=== PATIENT | female | born 1950 | race Two or more races ===

== ENCOUNTER 2020-10-11 08:22 | Outpatient (REF) | payer MEDICARE, BC, SELFPAY ==
[2020-10-11 11:35] LABS: Estimated Average Glucose 137 mg/dL; Hemoglobin A1c % 6.4 %
[2020-10-11 11:55] LABS: Alanine Aminotransferase 24 U/L (0-31); Anion Gap 12 (12-20); Aspartate Amino Transferase 24 U/L (5-31); Blood Urea Nitrogen 14 mg/dL (9-16); Calcium 8.5 mg/dL (8.4-10.2); Carbon Dioxide 29 mmol/L (22-29); Chloride 102 mmol/L (96-108); Cholesterol 133 mg/dL; Estimated Glomerular Filt Rate > 60; Glucose Fasting 147 mg/dL (60-99); HDL Cholesterol 38 mg/dL; LDL Cholesterol Calculated 75 mg/dl; Potassium 4.4 mmol/l (3.3-5.1); Sodium 139 mmol/L (135-145); Triglycerides 102 mg/dL
[2020-10-11 12:16] LABS: Creatinine Urine 114.75 mg/dL; Microalbum/Creatinine Ratio Ur 7.8 ug/mg cr
[2020-10-11 12:18] LABS: Vitamin D 25-OH Total 32.7 ng/mL (>30)
== END 2020-10-11 08:23 | disposition home or self-care (01) ==
LOC: HO.HMGCLDS 08:22
PROVIDERS: PCP Internal Medicine; Visit Provider Internal Medicine
DX: Z78.0 Asymptomatic menopausal state (principal); E11.9 Type 2 diabetes mellitus without complications
CPT/HCPCS: 80048; 80061; 82043; 82306; 83036; 84450; 84460

== ENCOUNTER 2021-03-15 07:54 | Outpatient (REF) | payer MEDICARE, BC, SELFPAY ==
[2021-03-15 11:15] LABS: MANUAL DIFF FLAG NO
[2021-03-15 11:32] LABS: Basophils Percent Auto 0.8 % (0-2); Eosinophils Absolute Auto 0.3 X10*3/uL (0.0-0.4); Eosinophils Percent Auto 6.5 % (0-4); Hematocrit 39.5 % (37-47); Lymphocytes Absolute Auto 1.5 X10*3/uL (1.2-4.9); Lymphocytes Percent Auto 38.4 % (20-40); Mean Corpuscular HGB Conc 32.9 g/dl (31.0-35.0); Mean Corpuscular Hemoglobin 30.4 pg (27.0-33.0); Mean Corpuscular Volume 92.5 fL (80-98); Mean Platelet Volume 10.6 fL (9.4-12.3); Monocytes Absolute Auto 0.4 X10*3/uL (0.1-1.2); Monocytes Percent Auto 10.7 % (2-11); Neutrophils Absolute Auto 1.7 X10*3/uL (2.0-8.3); Neutrophils Percent Auto 43.6 % (45-73); Platelet Count 153 X10*3/uL (160-400); Red Blood Count 4.27 X10*6/uL (4.20-5.50); Red Cell Distribution Width 12.6 % (11.0-16.0); White Blood Count 3.8 X10*3/uL (4.8-10.8)
[2021-03-15 11:54] LABS: Estimated Average Glucose 151 mg/dL; Hemoglobin A1c % 6.9 %
[2021-03-15 12:01] LABS: Creatinine Urine 44.84 mg/dL; Microalbumin Urine < 5.0 mg/L
[2021-03-15 12:06] LABS: Ferritin 95 ng/mL (10-250)
[2021-03-15 12:10] LABS: Alanine Aminotransferase 27 U/L (0-31); Albumin Level 4.2 g/dL (3.5-5.0); Alkaline Phosphatase 69 U/L (39-117); Anion Gap 13 (12-20); Aspartate Amino Transferase 23 U/L (5-31); Bilirubin Total 0.8 mg/dL (0.0-1.0); Blood Urea Nitrogen 15 mg/dL (9-16); Calcium 8.9 mg/dL (8.4-10.2); Carbon Dioxide 27 mmol/L (22-29); Chloride 102 mmol/L (96-108); Cholesterol 154 mg/dL; Estimated Glomerular Filt Rate > 60; Glucose Fasting 151 mg/dL (60-99); HDL Cholesterol 43 mg/dL; Iron 101 mcg/dL (30-160); LDL Cholesterol Calculated 89 mg/dl; Percent Iron Saturation 39 % (15-50); Potassium 4.3 mmol/L (3.3-5.1); Sodium 138 mmol/L (135-145); Total Iron Binding Capacity 260 mcg/dL (228-428); Total Protein 6.9 g/dL (6.5-8.0); Triglycerides 112 mg/dL; Unsaturated Iron Binding 159 ug/dL
== END 2021-03-15 07:55 | disposition home or self-care (01) ==
LOC: HO.HMGCLDS 07:54
PROVIDERS: PCP Internal Medicine; Visit Provider Internal Medicine
DX: E11.9 Type 2 diabetes mellitus without complications (principal); E78.5 Hyperlipidemia, unspecified; I10 Essential (primary) hypertension; K29.70 Gastritis, unspecified, without bleeding; Z86.79 Personal history of other diseases of the circulatory system; Z78.0 Asymptomatic menopausal state
CPT/HCPCS: 36415; 80053; 80061; 82043; 82728; 83036; 83540; 85025

== ENCOUNTER 2021-08-04 08:05 | Outpatient (REF) | payer MEDICARE, BC, SELFPAY ==
--- NOTE | ~2021-08-04 | MM_ITS ---
EXAMINATION: BONE DENSITOMETRY CLINICAL INDICATION: Encounter for other screening for malignant neoplasm. COMPARISON: None (current study represents initial baseline exam). TECHNIQUE: Using a [employer] DXA System (software version: 13.1) manufactured by [employer], dual-energy x-ray absorptiometry was performed of the lumbar spine and left hip. The images are of good technical quality. Summary results are attached. FINDINGS: AP SPINE L1-L4: BMD 1.102 g/cm2, Z-score 0.9, T-score -0.7, normal. LEFT FEMUR, NECK: BMD 0.894 g/cm2, Z-score 0.6, T-score -1.0, normal. LEFT FEMUR, TOTAL: BMD 0.911 g/cm2, Z-score 0.6, T-score -0.8, normal. IDENTIFIED RISK FACTORS: Recurrent falls, height loss, family history (parental hip fracture). Early menopause, secondary osteoporosis, thiazide. HISTORY OF FRACTURE: None listed. MEDICATIONS: Calcium supplements or multivitamin, vitamin D. MM/XR DEXA axial skeleton IMPRESSION: 1. DIAGNOSIS: Normal bone density based on the lowest T-score value of -1.0 in the femoral neck applying World Health Organization criteria. 2. 10-YEAR FRACTURE RISK PREDICTION, FRAX: Major osteoporotic fracture (clinical spine, forearm, hip or shoulder) 7.9%. Hip fracture 1.3%. 3. Treatment Recommendations: NOF guidelines recommend consideration for treatment in postmenopausal women and men age 50 and older presenting with the following: -A hip or vertebral (clinical or morphometric) fracture. -T-score less than or equal to -2.5 at the femoral neck or spine after appropriate evaluation to exclude secondary causes. -Low bone mass at the hip or spine and a 10-year fracture probability by FRAX of greater than or equal to 3% for hip fracture or greater than or equal to 20% for major osteoporotic fracture based on the [place] adapted WHO algorithm. 4. Other Recommendations: All treatment decisions require clinical judgment and consideration of individual patient factors, including patient preferences, comorbidities, previous drug use, risk factors not captured in the FRAX model (e.g. frailty, falls, vitamin D deficiency, increased bone turnover, interval significant decline in bone density) and possible under or overestimation of fracture risk by FRAX. FUTURE SCAN RECOMMENDATION: People with diagnosed cases of osteoporosis or at high risk for fracture should have regular bone mineral density tests. For patients eligible for Medicare, routine testing is allowed once every 2 years. The testing frequency can be increased to one year for patients who have rapidly progressing disease, those who are receiving or discontinuing medical therapy to restore bone mass, or have additional risk factors.
--- NOTE | ~2021-08-04 | MM_ITS ---
EXAMINATION: MM SCREENING DIGITAL BREAST TOMOSYNTHESIS, BILATERAL CLINICAL INFORMATION: Screening. Asymptomatic. Age 70. Prior outside mammography from [place] unavailable. Personal history benign left breast surgery x2 decades ago. Family history breast cancer, 3 aunts. The lifetime risk of breast cancer based on the Tyrer-Cuzick Model is 6%. COMPARISON: None. TECHNIQUE: Digital breast tomosynthesis is performed in both the craniocaudal and mediolateral oblique views along with computer-aided detection (CAD). Synthesized 2D images are generated from the tomosynthesis. FINDINGS: There are scattered areas of fibroglandular density (ACR BI-RADS breast composition Category b). There is no significant mass or architectural abnormality. The axilla and skin contours are unremarkable. There is biopsy clip marker mid lower inner left breast. There are scattered bilateral benign round coarse and some vascular calcifications. Grouped probable benign coarse calcification is present mid upper outer left breast and central left breast. There may be pseudo calcifications from digital processing artifact right breast anterior upper and central inferior. As this exam represents new baseline, patient will be recalled for additional magnification views to fully characterize. MM/MM tomosynthesis screening BI IMPRESSION: 1. Left: Probable benign calcifications mid upper outer and central breast. 3. Right: Probable pseudo calcifications from digital processing artifact on synthesized views anterior upper and central lower. ASSESSMENT: BI-RADS 0: Incomplete - Need Additional Imaging Evaluation RECOMMENDATION: 1. Additional views of the bilateral breasts (bilateral magnification CC and bilateral magnification ML). 2. Radiology department staff will contact the patient for additional imaging. This patient's information was entered into a reminder system with a target due date for their next mammogram.
== END 2021-08-04 08:06 | disposition home or self-care (01) ==
LOC: HO.MAMMO 08:05
PROVIDERS: Visit Provider Internal Medicine
DX: Z13.820 Encounter for screening for osteoporosis (principal); Z78.0 Asymptomatic menopausal state; Z12.31 Encounter for screening mammogram for malignant neoplasm of breast
CPT/HCPCS: 77063; 77067; 77080

== ENCOUNTER 2021-08-17 08:50 | Outpatient (REF) | payer MEDICARE, BC, SELFPAY ==
--- NOTE | ~2021-08-17 | MM_ITS ---
EXAMINATION: MM DIAGNOSTIC DIGITAL MAMMOGRAPHY, BILATERAL CLINICAL INFORMATION: Recall from new baseline screening for bilateral calcifications. COMPARISON: Mammography: 08/04/2021 (new baseline). TECHNIQUE: Digital mammography is performed in the following views: bilateral magnification CC x2; bilateral magnification ML. FINDINGS: There are scattered areas of fibroglandular density (ACR BI-RADS breast composition Category b). Additional magnification views left breast demonstrate 3 similar tight groups of probable benign calcifications outer quadrant and 1 group of calcifications central breast. The groups are similar, each group over 5 in number with variable size of the calcifications. Prior outside exams from [place] are no longer available and chronicity is unknown. Management plan is for short interval follow up left mammography in 6 months to include magnification views. Additional magnification views right demonstrate some scattered benign coarse calcifications. Results are discussed with the patient at time of visit, using an per diem interpreter. MM/MM added views BI IMPRESSION: Left: Probable benign similar appearing tight groups of calcifications outer and central breast. Right: Scattered benign coarse calcifications. ASSESSMENT: BI-RADS 3: Probably Benign RECOMMENDATION: Diagnostic left mammography in 6 months. This patient's information was entered into a reminder system with a target due date for their next mammogram.
== END 2021-08-17 08:51 | disposition home or self-care (01) ==
LOC: HO.MAMMO 08:50
PROVIDERS: PCP Internal Medicine; Visit Provider Internal Medicine
DX: R92.1 Mammographic calcification found on diagnostic imaging of breast (principal)
CPT/HCPCS: 77066

== ENCOUNTER → 2021-08-29 11:54 | Outpatient (BNVA) | payer MEDICARE, BC, SELFPAY | PROVIDERS: PCP Internal Medicine; Referring Provider Internal Medicine; Visit Provider Internal Medicine ==

== ENCOUNTER → 2021-11-02 08:09 | Outpatient (BNVA) | payer MEDICARE, BC, SELFPAY | PROVIDERS: PCP Internal Medicine; Referring Provider Internal Medicine; Visit Provider Internal Medicine | DX: I71.9 Aortic aneurysm of unspecified site, without rupture (principal); Q25.49 Other congenital malformations of aorta; Q27.8 Other specified congenital malformations of peripheral vascular system | CPT/HCPCS: 99212 ==

== ENCOUNTER 2022-03-06 08:24 | Outpatient (REF) | payer MEDICARE, BC, SELFPAY | END 2022-03-06 08:25 | disposition home or self-care (01) | LOC: HO.LAB 08:24 | PROVIDERS: PCP Internal Medicine | DX: N39.0 Urinary tract infection, site not specified (principal); R32 Unspecified urinary incontinence | CPT/HCPCS: 51798; 87086; 99202 ==

== ENCOUNTER 2022-03-13 08:50 | Outpatient (REF) | payer MEDICARE, BC, SELFPAY ==
--- NOTE | ~2022-03-13 | MM_ITS ---
EXAMINATION: MM DIAGNOSTIC DIGITAL BREAST TOMOSYNTHESIS, LEFT CLINICAL INFORMATION: Short interval six-month follow-up probable benign calcifications, several groups left breast. Personal history benign left breast surgery x2 decades ago, [place]. The lifetime risk of breast cancer based on the Tyrer-Cuzick Model is 6%. COMPARISON: Mammography: 08/17/2021, 08/04/2021 (new baseline, BI-RADS 0). TECHNIQUE: Digital breast tomosynthesis is performed in both the craniocaudal and mediolateral oblique views along with computer-aided detection (CAD). Synthesized 2D images are generated from the tomosynthesis. Additional magnification views are obtained in the CC and ML x3 projections. FINDINGS: There are scattered areas of fibroglandular density (ACR BI-RADS breast composition Category b). Parenchymal pattern is similar to prior exams. No developing density or interval mass or architectural abnormality. The axilla and skin contours are unremarkable. The scattered grouped calcifications for follow-up central and upper outer breast are similar to prior diagnostic exam. Again, there is a biopsy clip marker also noted with some adjacent calcifications mid lower inner quadrant. Left breast calcifications will be reassessed again in 6 months at time of annual bilateral mammography. Results are provided to the patient at time of visit by the technologist. MM/MM tomosynthesis diagnostic LT IMPRESSION: No significant changes from prior diagnostic exam. ASSESSMENT: BI-RADS 3: Probably Benign RECOMMENDATION: Diagnostic mammography at time of annual bilateral exam, due in 6 months. This patient's information was entered into a reminder system with a target due date for their next mammogram.
== END 2022-03-13 08:51 | disposition home or self-care (01) ==
LOC: HO.MAMMO 08:50
PROVIDERS: PCP Internal Medicine; Visit Provider Internal Medicine
DX: R92.1 Mammographic calcification found on diagnostic imaging of breast (principal)
CPT/HCPCS: 77061; 77065

== ENCOUNTER 2022-04-10 08:09 | Outpatient (REF) | payer MEDICARE, BC, SELFPAY ==
[2022-04-10 09:04] LABS: Estimated Average Glucose 154 mg/dL
[2022-04-10 09:14] LABS: Anion Gap 10 (12-20); Blood Urea Nitrogen 13 mg/dL (9-16); Calcium 8.9 mg/dL (8.4-10.2); Carbon Dioxide 29 mmol/L (22-29); Chloride 104 mmol/L (96-108); Cholesterol 150 mg/dL; Estimated Glomerular Filt Rate > 60; Glucose Random 183 mg/dL (60-115); HDL Cholesterol 42 mg/dL; LDL Cholesterol Calculated 87 mg/dl; Potassium 4.2 mmol/L (3.3-5.1); Sodium 139 mmol/L (135-145); Triglycerides 106 mg/dL
== END 2022-04-10 08:10 | disposition home or self-care (01) ==
LOC: HO.HMGCLDS 08:09
PROVIDERS: PCP Internal Medicine; Visit Provider Internal Medicine
DX: E11.9 Type 2 diabetes mellitus without complications (principal); E78.5 Hyperlipidemia, unspecified; I10 Essential (primary) hypertension
CPT/HCPCS: 36415; 80048; 80061; 83036

== ENCOUNTER 2022-04-17 07:36 | Outpatient (REF) | payer MEDICARE, BC, SELFPAY ==
--- NOTE | ~2022-04-17 | CT_ITS ---
EXAMINATION: CTA OF THE CHEST WITHOUT AND WITH CONTRAST CLINICAL INFORMATION: Carotid to subclavian bypass COMPARISON: None TECHNIQUE: CT angiography of the chest was performed without and with contrast. 70 mL Omnipaque 350 administered intravenously without complication. 3D POSTPROCESSING: Multiple 3-D angiographic images were processed from the initial data set by the hematology technologist at the modality workstation under concurrent physician supervision. DOSE LOWERING TECHNIQUES: This CT examination was performed using dose optimization techniques as appropriate, variously including the following: - Automated exposure control - Adjustment of mA and/or kV according to patient size (this includes techniques or standardized protocols for targeted exams where dose is matched to indication/reason for exam; i.e. extremities or head) - Use of iterative construction technique DOSE-LENGTH PRODUCT: 112 FINDINGS: CORONARY ARTERIES: Motion artifact obscures the coronary arteries. There is likely mild LAD calcium. ASCENDING AORTA: The ascending aorta measures 3.3 x 3.1 cm. No dissection. AORTIC ARCH: The aortic arch measures 2.7 x 2.7 cm. There is mild atherosclerosis. Two-vessel branch pattern. Great vessels are patent. The innominate artery is widely patent. 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 There is a surgical clip in this location. The right common carotid to subclavian artery bypass graft is patent with mild stenoses at the proximal and distal anastomoses. The distal subclavian and axillary arteries are widely patent. The left common carotid and left subclavian arteries are widely patent. DESCENDING AORTA: Question whether there has been surgical repair of the distal arch and proximal descending aorta with the tube graft. The descending aorta is normal in caliber. INCLUDED UPPER ABDOMINAL AORTA: The upper abdominal aorta is normal in caliber. The included celiac and superior mesenteric artery origins are patent. PULMONARY ARTERIES: No central pulmonary embolism. NONVASCULAR: Arterial phase imaging limits evaluation of nonvascular structures. No mediastinal adenopathy. No pericardial effusion. Small hiatal hernia. The upper abdomen is unremarkable. No suspicious lung nodules. Minor scarring in the left upper lobe and lingula. Degenerative changes in the spine. Surgical changes left chest wall and rib cage. CT/CT angio chest aorta IMPRESSION: The right common carotid to subclavian artery bypass is patent with mild stenoses at the proximal and distal anastomoses.
[2022-04-17] MEDS: iohexoL 350 MG/ML 100 ML INFUS..BTL 70 ML IV (08:56)
== END 2022-04-17 07:37 | disposition home or self-care (01) ==
LOC: HO.CT 07:36
PROVIDERS: PCP Internal Medicine; Visit Provider Internal Medicine
DX: Z98.890 Other specified postprocedural states (principal); Z86.79 Personal history of other diseases of the circulatory system
CPT/HCPCS: 71275; Q9967

== ENCOUNTER → 2022-05-17 13:23 | Outpatient (BNVA) | payer MEDICARE, BC, SELFPAY | PROVIDERS: PCP Internal Medicine; Referring Provider Internal Medicine; Visit Provider Nurse Practitioner Family | DX: R06.02 Shortness of breath (principal); Q25.49 Other congenital malformations of aorta; Q27.8 Other specified congenital malformations of peripheral vascular system; I71.9 Aortic aneurysm of unspecified site, without rupture; I10 Essential (primary) hypertension | CPT/HCPCS: 99212 ==

== ENCOUNTER 2022-06-01 10:00 | Outpatient (RCR) | payer MEDICARE, BC, SELFPAY ==
--- NOTE | 2022-05-03 10:33 | MHC.PT.EP ---
[facility] [place] Office [place] Office [place] Office [address] Chandan Worthy [address] [phone] F: [phone] F: [phone] F: [phone] F: [phone] Physical Therapy Plan of Care Date of Evaluation: Date of Surgery: 08/2021 Diagnosis: unspecified urinary incontinence Assessment: 71 y/o F referred to PT with unspecified urinary incontinence. She reports urinary leakage for >1 year with coughing, sneezing, lifting, activity, and with strong urges. Reports leakage throughout the day with needing to change her pads 3x/day and wears a pamper at night for protection. She reports urinating 10x/day and 5-6x/night. She limits fluid intake to prevent leakage. When she has the urge to urinate, she cannot delay the urge. Of note, she had a hysterectomy in 08/2021 and has had a sacrocolpopexy for POP (rectocele gr 2 and cystocele gr 3). She also has a cardiac hx and HTN. She limits her walking and leaving the house due to JUD/UI. S/s consistent with JUD and Urge incontience as well as poor pressure management. Internal and external pelvic floor exam not done due to time constraints (pt arrived late for evaluation and increased time needed with use of drafter tool design) but she has consented to this exam next visit. She demonstrates trendelenburg with gait and poor breathing mechanics. At this time, recommend PT 1x/week for 12 weeks (will go to every other week around 5 weeks) to address impairments, implement HEP, and optimize functional mobility. Will modify goals and treatment plan following pelvic floor assessment next visit. Frequency and Duration: The patient will be seen 1x/week for 12 weeks Short Term Goals: 6 week 1. Pt to be able to correctly activate her PFM to allow improved support to bowel and bladder. 2. Pt to be able to demonstrate diaphragmatic breathing to improve pressure exchange and intra abdominal load management. 3. Pt to complete a voiding log in order to accurately assess her bladder habits 4. Pt to be educated on behavior training to help decrease urge incontinence. Half-Way Goals: 12 weeks 1. Pt to be able to show improved PFM contraction during functional movements such as a bridge or squat to help prevent or limit POP. 2. Pt to reduce # of episodes of JUD during the day by 50% to help improve quality of life and reduce pad usage. 3. Pt to be independent with her final HEP for PFM in order to help maintain gains made in therapy. Treatment Plan: Modalities to reduce pain, spasms and effusion. Manual therapy to restore motion and function. Therapeutic exercise to improve strength and flexibility. Neuromuscular re-education for posture and balance. Therapeutic activities to return to functional activities of daily living. Electronically signed by: Please sign and return to therapist. Thank you for your referral.
--- NOTE | 2022-08-02 13:47 | MHC.PT.DC ---
[facility] [place] Office [place] Office [place] Office [address] Chandan Worthy [address] [phone] F: [phone] F: [phone] F: [phone] F: [phone] Physical Therapy Discharge Report Diagnosis: unspecified urinary incontinence Date of Surgery: 08/2021 Date of Evaluation: 05/03/22 Date of Discharge: 08/02/22 Treatments to Date: 4 Cancellations to Date: 0 No Shows to Date: 0 Discharge Status: Improved Function Independent with HEP Discharge Summary: Pt did not f/u with further visits and is therefore d/c. Pt was I with HEP with focus on motor control of pelvic stability, strength of PF as well as managing breath. Also pt was given significant education today re constipation management, toileting mechanics, urge deferment and practicing delaying voiding when it has been < 2 hours between voids. Continue to progress hip strength, breathing with transitional movement, teaching knack. Electronically signed by: Felisha Peres PT Please sign and return to therapist. Thank you for your referral.
== END 2022-08-02 13:47 | disposition home or self-care (01) ==
LOC: HO.PT 10:00
PROVIDERS: PCP Internal Medicine
DX: R32 Unspecified urinary incontinence (principal)
CPT/HCPCS: 97112; 97140; 97162

== ENCOUNTER → 2022-06-05 13:02 | Outpatient (BNVA) | payer MEDICARE, BC, SELFPAY | PROVIDERS: PCP Internal Medicine | DX: N32.81 Overactive bladder (principal) | CPT/HCPCS: Q3014 ==

== ENCOUNTER → 2023-01-10 08:50 | Outpatient (REF) | payer MEDICARE, BC, SELFPAY ==
--- NOTE | 2023-01-10 08:53 | CA_ITS ---
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 The visually estimated ejection fraction is between 65-70%. - There is moderate septal asymmetric hypertrophy. - No obvious valvular pathology seen on this study. Findings Left Ventricle Normal left ventricular cavity size. There is mildly increased left ventricular wall thickness. The left ventricular systolic function is normal. The visually estimated ejection fraction is between 65-70%. There is no evidence of regional wall motion abnormalities. Diastolic function is normal for age. E/E prime ratio is <8, consistent with normal filling pressures. There is moderate septal asymmetric hypertrophy. Right Ventricle Normal right ventricular cavity size and systolic function. Atria Both atria are normal in size. Aortic Valve There is a normal trileaflet aortic valve. There is mild calcification of the aortic valve. There is no aortic valve stenosis. There is no aortic valve regurgitation. Mitral Valve The mitral valve appears normal. There is no mitral valve regurgitation. There is no mitral valve stenosis. Pulmonic Valve The pulmonic valve is likely normal. There is trace pulmonic valve regurgitation. Tricuspid Valve There is no tricuspid valve regurgitation. Tricuspid regurgitation envelope is inadequate for calculation of right ventricular systolic pressure. Great Vessels The asc aorta and aortic arch are normal in size. Venous The inferior vena cava is normal in size and collapses greater than 50% with inspiration. Pericardium/Pleural There is no evidence of pericardial effusion. Prior Study Comparison No prior study available for comparison. Recommendations, Care & Conclusions No obvious valvular pathology seen on this study. Measurements 2D Linear Measurements IVSd: 1.59 0.6-0.9/0.6-1.0 cm LVIDd: 3.91 3.9-5.3/4.2-5.9 cm LVIDd Index: 2.29 2.4-3.2/2.2-3.1 cm/m2 LVIDs: 2.63 2.0-3.6 cm LVPWd: 1.12 0.7-1.1 cm LA Diam: 2.90 2.7-3.8/3.0-4.0 cm LAIDs Index: 1.70 1.5-2.3 cm/m2 LV Mass: 239.55 67-162/88-224 g LV Mass Index: 140.09 43-95/49-115 g/m2 LVOT Diam: 2.10 3.0+(-)1.3 cm 2D Systolic Function EF 4C: 60.60 >55% Mitral Valve MV Pk E: 0.46 MV PK A: 0.66 MV Decel Time: 268.00 E/A: 0.70 E'Lateral: 6.20 E'Medial: 4.35 E/E' Med: 10.60 E/E' Lat: 7.50 PHT: 79.00 MVA PHT: 2.78 Decel Nye: 1.72 Aortic Valve AoV Pk Alex: 1.12 AoV Mn Alex: 0.83 AoV VTI: 0.26 AoV Pk Grad: 5.00 Aov Mn Grad: 3.00 JM Cont.VTI: 2.97 LVOT LVOT Pk Alex: 0.92 LVOT Mn Alex: 0.67 LVOT VTI: 0.23 LVOT Pk Grad: 3.00 LVOT Mn Grad: 2.00 LVOT Diam: 2.10 LVOT Area: 3.46 Diastolic Function MV Pk E: 0.46 MV Pk A: 0.66 E/A: 0.70 E'Medial: 4.35 E/E' Med: 10.60 E' Laterial: 6.20 E/E' Lat: 7.50 Right Ventricle TAPSE (mm): 17.50 TVS' Alex: 9.03 Tricuspid Valve RA Press: 3.00 Great Vessels Aorta Sinus of Valsalva: 3.16 2.0-3.5 cm Ao Asc: 3.40 2.1-3.4 cm Ao Arch: 3.10 Updated in Other Vendor System with Status of Final Hernan Chaudhari MD electronically signed on 01/10/2023 12:14:02 PM with status of Final
== END ==
LOC: HO.CARD 08:50
PROVIDERS: PCP Internal Medicine; Visit Provider Nurse Practitioner Family
DX: I71.9 Aortic aneurysm of unspecified site, without rupture (principal); Q27.8 Other specified congenital malformations of peripheral vascular system; R06.02 Shortness of breath; I10 Essential (primary) hypertension
CPT/HCPCS: 93306

== ENCOUNTER 2023-01-10 12:38 | Outpatient (REF) | payer MEDICARE, BC, SELFPAY ==
--- NOTE | ~2023-01-10 | MM_ITS ---
EXAMINATION: MM DIAGNOSTIC DIGITAL BREAST TOMOSYNTHESIS, BILATERAL CLINICAL INFORMATION: Six-month follow-up left breast calcifications. Yearly screening right breast study. COMPARISON: Mammography: 03/13/2022 and studies dating back to 08/04/2021. TECHNIQUE: Digital breast tomosynthesis is performed in both the craniocaudal and mediolateral oblique views along with computer-aided detection (CAD). Synthesized 2D images are generated from the tomosynthesis. Left breast spot magnification views in craniocaudal and 90 degree mediolateral views performed. FINDINGS: There are scattered areas of fibroglandular density (ACR BI-RADS breast composition Category b). Right breast has a stable parenchymal pattern without new abnormal dominant mass or suspicious grouping of microcalcifications. The 2 groupings of calcifications about the upper outer aspect of the left breast are stable. No abnormal dominant mass identified. One-year follow-up study is suggested with spot magnification views of the left breast. Results are provided to the patient at time of visit by the technologist. MM/MM tomosynthesis diagnostic BI IMPRESSION: There are no significant changes from prior study. ASSESSMENT: BI-RADS 3: Probably Benign RECOMMENDATION: Diagnostic mammography at time of next annual exam, due in 12 months. This patient's information was entered into a reminder system with a target due date for their next mammogram.
== END 2023-01-10 12:39 | disposition home or self-care (01) ==
LOC: HO.MAMMO 12:38
PROVIDERS: Visit Provider Internal Medicine
DX: R92.1 Mammographic calcification found on diagnostic imaging of breast (principal)
CPT/HCPCS: 77062; 77066

== ENCOUNTER 2023-01-19 08:15 | Outpatient (REF) | payer MEDICARE, BC, SELFPAY ==
[2023-01-19 08:31] LABS: MANUAL DIFF FLAG NO
[2023-01-19 09:08] LABS: Basophils Percent Auto 0.8 % (0-2); Eosinophils Absolute Auto 0.3 X10*3/uL (0.0-0.4); Eosinophils Percent Auto 6.3 % (0-4); Hematocrit 40.3 % (37.0-47.0); Hemoglobin 13.7 g/dl (12.0-16.0); Imm Gran Abs Auto 0.01 X10*3/uL (0.00-0.03); Imm Gran Pct Auto 0.3 % (0.0-0.4); Lymphocytes Absolute Auto 1.6 X10*3/uL (1.2-4.9); Lymphocytes Percent Auto 39.3 % (20-40); Mean Corpuscular Hemoglobin 30.9 pg (27.0-33.0); Mean Corpuscular Volume 90.8 fL (80.0-98.0); Mean Platelet Volume 9.9 fL (9.4-12.3); Monocytes Absolute Auto 0.4 X10*3/uL (0.1-1.2); Monocytes Percent Auto 8.8 % (2-11); Neutrophils Absolute Auto 1.8 x10*3/uL (2.0-8.3); Neutrophils Percent Auto 44.5 % (45-73); Platelet Count 167 X10*3/uL (160-400); Red Blood Count 4.44 X10*6/uL (4.20-5.50); Red Cell Distribution Width 12.6 % (11.0-16.0)
[2023-01-19 09:48] LABS: Alanine Aminotransferase 32 U/L (0-31); Anion Gap 14 (12-20); Aspartate Amino Transferase 23 U/L (5-31); Blood Urea Nitrogen 13 mg/dL (9-16); Calcium 9.1 mg/dL (8.4-10.2); Carbon Dioxide 27 mmol/L (22-29); Chloride 105 mmol/L (96-108); Cholesterol 168 mg/dL; Estimated Glomerular Filt Rate > 60; Glucose Fasting 168 mg/dL (60-99); HDL Cholesterol 47 mg/dL; LDL Cholesterol Calculated 100 mg/dl; Potassium 4.7 mmol/L (3.3-5.1); Sodium 141 mmol/L (135-145); Triglycerides 108 mg/dL
[2023-01-19 10:03] LABS: Vitamin D 25-OH Total 37.7 ng/mL (>30)
== END 2023-01-19 08:16 | disposition home or self-care (01) ==
LOC: HO.LAB 08:15
PROVIDERS: PCP Internal Medicine; Visit Provider Internal Medicine
DX: E78.5 Hyperlipidemia, unspecified (principal); I10 Essential (primary) hypertension; K29.70 Gastritis, unspecified, without bleeding; Z78.0 Asymptomatic menopausal state
CPT/HCPCS: 36415; 80048; 80061; 82306; 84450; 84460; 85025

== ENCOUNTER 2023-02-16 12:04 | Outpatient (REF) | payer MEDICARE, BC, SELFPAY ==
[2023-02-16 14:00] LABS: Estimated Average Glucose 143 mg/dL; Hemoglobin A1c % 6.6 %
[2023-02-16 17:17] LABS: Microalbumin Urine < 5.0 mg/L
== END 2023-02-16 12:05 | disposition home or self-care (01) ==
LOC: HO.HMGCLDS 12:04
PROVIDERS: PCP Internal Medicine; Visit Provider Internal Medicine
DX: E11.9 Type 2 diabetes mellitus without complications (principal)
CPT/HCPCS: 36415; 82043; 83036

== ENCOUNTER → 2023-02-27 12:42 | Outpatient (BNVA) | payer MEDICARE, BC, SELFPAY | PROVIDERS: PCP Internal Medicine; Referring Provider Internal Medicine; Visit Provider Internal Medicine | DX: I71.9 Aortic aneurysm of unspecified site, without rupture (principal); I10 Essential (primary) hypertension; E78.5 Hyperlipidemia, unspecified; Q25.49 Other congenital malformations of aorta; Q27.8 Other specified congenital malformations of peripheral vascular system; Z79.899 Other long term (current) drug therapy | CPT/HCPCS: 93005; 99212 ==

== ENCOUNTER 2023-03-13 15:31 | Outpatient (REF) | payer MEDICARE, BC, SELFPAY ==
--- NOTE | ~2023-03-13 | XR_ITS ---
EXAMINATION: XR LUMBOSACRAL SPINE CLINICAL INFORMATION: Low back pain. Fall. COMPARISON: None available. TECHNIQUE: Three views of the lumbosacral spine. FINDINGS: Bone alignment is normal. No fracture or dislocation. Normal disc spaces. Lower lumbar spine facet arthritis. XR/XR lumbar spine 2-3V IMPRESSION: Lower lumbar spine facet arthritis.
== END 2023-03-13 15:32 | disposition home or self-care (01) ==
LOC: HO.HMGCX 15:31
PROVIDERS: PCP Internal Medicine; Visit Provider Internal Medicine
DX: M54.50 Low back pain, unspecified (principal)
CPT/HCPCS: 72100

== ENCOUNTER → 2023-04-12 09:11 | Outpatient (BNVA) | payer MEDICARE, BC, SELFPAY | PROVIDERS: PCP Internal Medicine; Visit Provider Surgery Vascular Surgery | DX: I70.0 Atherosclerosis of aorta (principal); Q27.8 Other specified congenital malformations of peripheral vascular system | CPT/HCPCS: 99202 ==

== ENCOUNTER 2023-05-08 08:29 | Outpatient (REF) | payer MEDICARE, BC, SELFPAY ==
[2023-05-08 10:28] LABS: Blood Urea Nitrogen 12 mg/dL (9-16); Estimated Glomerular Filt Rate > 60
== END 2023-05-08 08:30 | disposition home or self-care (01) ==
LOC: HO.LAB 08:29
PROVIDERS: PCP Internal Medicine; Visit Provider Surgery Vascular Surgery
DX: I70.0 Atherosclerosis of aorta (principal)
CPT/HCPCS: 36415; 82565; 84520

== ENCOUNTER 2023-05-10 12:46 | Outpatient (REF) | payer MEDICARE, BC, SELFPAY ==
--- NOTE | ~2023-05-10 | CT_ITS ---
EXAMINATION: CT ANGIOGRAM CHEST CLINICAL INFORMATION: Atherosclerosis of aorta. Additional Notes/Special Instructions: Eval thoracic stent graft. COMPARISON: CT angiogram chest 04/17/2022. TECHNIQUE: Multiple axial images were obtained through the chest after the administration of 70 mL of Omnipaque 350 intravenous contrast. Extensive vascular post-processing including two-dimensional and three-dimensional reformatted images were created and reviewed on an independent workstation. This CT examination was performed using dose optimization techniques as appropriate, variously including the following: *Automated exposure control *Adjustment of mA and/or kV according to patient size (this includes techniques or standardized protocols for targeted exams where dose is matched to indication/reason for exam; i.e. extremities or head) *Use of iterative reconstruction technique DLP: 497 mGy-cm FINDINGS: VASCULAR FINDINGS: The thoracic aorta demonstrates mild calcific atherosclerotic change without aneurysm. There is a 2-vessel branching pattern of the aortic arch with a common trunk involving the brachiocephalic and left carotid. The proximal origins of the great vessels are patent. The right subclavian artery is occluded at its origin and the majority of the vessel is not seen. There is a right carotid to distal subclavian bypass graft present which is patent. There are some minimal areas of stenosis at the origin of the graft as well as the distal anastomosis, unchanged from prior and not felt to be hemodynamically significant. There appears to be an open surgical tube graft repair of the distal thoracic aortic arch beginning immediately after the origin of the left subclavian extending to the proximal descending thoracic aorta (see dela cruz image). This is widely patent. The distal descending thoracic aorta appears unremarkable. The small visualized portion of the abdominal aorta appears unremarkable aside from mild atherosclerotic change. The origins of the celiac and SMA are patent. There is very early filling of the right-sided axillary and subclavian veins. Does this patient have a right arm AV fistula or graft? This was not seen at the time of the prior study. NONVASCULAR FINDINGS: Lungs: Scattered areas of atelectasis are present. No suspicious lung masses are seen. Mediastinum: Heart size is normal. There is a 5 mm nodule in the left lobe of the thyroid. No mediastinal or hilar abnormality seen. No significant coronary calcification. Pleura: There is no pleural effusion. No pleural mass or thickening. Axilla: No lymphadenopathy. Upper Abdomen: Unremarkable. Osseous Structures: Unremarkable. CT/CT angio chest aorta IMPRESSION: 1. A right carotid to distal subclavian bypass graft is patent. There are some mild stenoses at the origin and distal anastomosis, unchanged from prior, not felt to be hemodynamically significant. 2. There appears to be an open surgical tube graft repair of the distal thoracic arch beginning immediately after the origin of the left subclavian extending to the proximal descending thoracic aorta. This is widely patent. 3. Incidental note made of early filling of the right axillary and subclavian veins. This was not seen at the time of the prior study, possibly indicative of AV shunting from a dialysis fistula. Please correlate clinically. 4. Other incidental findings as described above. Fleischner guidelines were followed.
--- NOTE | ~2023-05-10 | CT_ITS ---
EXAMINATION: CT ANGIOGRAM NECK CLINICAL INFORMATION: Atherosclerotic disease. Carotid subclavian bypass. COMPARISON: CTA chest from 05/10/2023. TECHNIQUE: Initial noncontrast water quality control engineer imaging of the neck was performed. Test bolus sequences followed by intravenous administration 70 mL of Omnipaque 350 (total utilized for CTA neck and chest). Helical imaging was performed in the axial plane from the aortic arch to the skull base. The data was processed at the mineral technologist's workstation for generation of MIP sequences. Angled MIPs and volume rendered reformatted images were also generated at an offline 3D workstation. Stenoses are assessed in accordance with NASCET criteria unless otherwise indicated. This CT examination was performed using dose optimization techniques as appropriate, variously including the following: *Automated exposure control. *Adjustment of mA and/or kV according to patient size (this includes techniques or standardized protocols for targeted exams where dose is matched to indication/reason for exam; i.e. extremities or head). *Use of iterative reconstruction technique. DLP: 497 mGy-cm (total for CTA neck and chest) FINDINGS: CT Neck: There is a 0.6 cm hypoattenuating nodule in the left thyroid lobe (no follow-up imaging recommended based on current guidelines at the time of examination). The remaining cervical soft tissues are within normal limits. Advanced degenerative disc disease at C4-C5 and C5-C6. Mild degenerative disc disease at all additional cervical levels. Facet and uncovertebral joint arthropathy leads to osseous encroachment on the neural foramina from C3-C6. Congenital nonunion of the posterior arch of C1. CT Upper Chest: The visualized lung apices and upper mediastinum are within normal limits. Neck CTA: Aortic Arch: Normal caliber with mild calcific atherosclerotic disease. Two vessel branching pattern of the arch with left common carotid artery arising from the brachiocephalic trunk. Great Vessel Origins: There is occlusion of the [place] origin of the right subclavian artery. Patent vascular graft between the proximal right common carotid artery and the right subclavian artery. A fibrous shelf narrows the proximal graft approximately 50%. No additional significant stenosis of the branch origins. Right Common Carotid Artery: Normal opacification without focal stenosis or occlusion. Cervical Right Internal Carotid Artery: Moderate mixed fibrofatty and calcific atherosclerotic disease of the carotid bulb and proximal internal carotid artery causes 50% stenosis of the origin of the right ICA. Left Common Carotid Artery: Normal opacification without focal stenosis or occlusion. Cervical Left Internal Carotid Artery: Minimal atherosclerotic disease of the carotid bulb and proximal internal carotid artery. Cervical Right Vertebral Artery: Threadlike, diminished opacification of a hypoplastic right vertebral artery with concomitant decrease in caliber of the foramina transversarium. Cervical Left Vertebral Artery: Dominant. Normal opacification without focal stenosis or occlusion. CT/CT angio neck IMPRESSION: 1. Patent vascular graft between the proximal right common carotid artery and the right subclavian artery. A fibrous shelf narrows the proximal graft approximately 50%. 2. Atherosclerotic disease causes 50% stenosis of the origin of the right ICA. 3. Hypoplastic, opacification of a hypoplastic right vertebral artery.
[2023-05-10] MEDS: iohexoL 350 MG/ML 100 ML INFUS..BTL IV (15:06)
== END 2023-05-10 12:47 | disposition home or self-care (01) ==
LOC: HO.CT 12:46
PROVIDERS: PCP Internal Medicine; Visit Provider Surgery Vascular Surgery
DX: I70.0 Atherosclerosis of aorta (principal)
CPT/HCPCS: 70498; 71275; Q9967

== ENCOUNTER 2023-05-22 09:16 | Outpatient (AMB) | payer MEDICARE, BC, SELFPAY ==
--- NOTE | 2023-05-22 09:19 | A.OFFVIS_ITS ---
Intake Vital Signs 05/22/23 09:20 Height 5 ft 4 in Weight 139 lb BMI 23.9 Intake Visit Reasons: follow up s/p CTA neck 05/10/23 Intake Note: Patient is here for a follow up s/p CTA neck 05/10/23. Surgical Scrub Technologist Required: Yes Surgical Scrub Technologist Name: Ani Luis Miguel CLM Allergies amlodipine Allergy (Unknown, Verified 05/22/23 09:21) unk chlorpromazine [From Thorazine] Allergy (Unknown, Verified 05/22/23 09:21) Unknown doxepin Allergy (Unknown, Verified 05/22/23 09:21) unk haloperidol [Haldol] Allergy (Unknown, Verified 05/22/23 09:21) unk prochlorperazine [From Compazine] Allergy (Unknown, Verified 05/22/23 09:21) Unknown simvastatin Allergy (Unknown, Verified 05/22/23 09:21) unk thioridazine Allergy (Unknown, Verified 05/22/23 09:21) unk trifluoperazine Allergy (Unknown, Verified 05/22/23 09:21) Unknown valsartan Allergy (Unknown, Verified 05/22/23 09:21) Unknown HPI follow up s/p CTA neck 05/10/23 HPI Details Very pleasant 72-year-old female presents for follow-up regarding CT angiogram of the neck and chest. This was all originally done for dysphagia lusoria. Subsequently underwent treatment of Meckel's diverticulum, intramural hematoma, penetrating ulcer and pseudoaneurysm with open stent graft repair of the descending thoracic aorta in 2017. In addition she had a carotid subclavian bypass. This was all done at [facility]. She now presents for follow-up. She has been having no significant interval issues. She does have to follow strict dietary protocol of small frequent meals. She now presents for routine follow-up with CT angiogram. [facility] Medical History Aberrant right subclavian artery Achalasia Carpal tunnel syndrome Cystocele and rectocele with incomplete uterovaginal prolapse Dyslipidemia Erythema intertrigo Essential hypertension Gastritis Hx of aortic aneurysm HX: benign breast biopsy Kommerell's diverticulum Overactive bladder Pelvic organ prolapse quantification stage 2 rectocele Pelvic organ prolapse quantification stage 3 cystocele Penetrating atherosclerotic ulcer of aorta Skin tags, multiple acquired Type 2 diabetes mellitus without complication, without long-term current use of insulin Urinary incontinence Surgical History H/O aortic aneurysm repair History of right salpingo-oophorectomy History of sacrocolpopexy History of vaginal hysterectomy Hx of colonoscopy Status post left breast lumpectomy Family History Father No problems noted. Mother No problems noted. Brother No problems noted. Social History Housing: House Alcohol intake: never Patient Tobacco Use Status: Never used Tobacco e-Cigarette/Vaping Use: Never Used Current occupational status: retired Cognitive needs: No Hearing needs: No Vision needs: No Review of Systems Const All systems reviewed & are unremarkable except as noted in HPI and below Reports no additional complaints ENT Reports Normal hearing present Card Denies chest pain, Denies chest pain at rest, Denies chest pain with activity and Denies pedal edema Resp Denies cough GI Denies abdominal pain Musc Denies abnormal gait, Denies muscle cramps and Denies radiating pain into limb Skin/Breast Denies skin ulcer and Denies wounds Neuro Reports Normal hearing present and Denies abnormal gait Psych Reports no additional complaints Physical Exam Vital Signs: BMI result Body Mass Index 23.9 Const General: cooperative, healthy appearing and comfortable Orientation/consciousness: oriented to person, oriented to place and oriented to time HEENT Head: Yes normal to inspection Neck Neck: Yes normal visual inspection Carotids: no bruits Chest Chest palpation & inspection: normal inspection of the chest Resp Effort & Inspection: normal respiratory effort and able to speak in complete sentences Auscultation: clear to auscultation bilaterally, no crackles, no rales, no rhonchi and no wheezes Cardio Rate: regular rate Rhythm: regular rhythm Heart sounds: S1 normal heart sound present and S2 normal heart sound present Bruits: no carotid bruits Peripheral pulses: Peripheral pulses 2+ throughout GI Inspection: Yes normal to inspection Skin Wounds: no wounds Hair: normal Neuro General: oriented to person, oriented to place and oriented to time Cranial nerves: Yes CN's II-XII intact bilaterally and Yes Normal hearing present Cognition (Neuro): normal cognition Motor exam (neuro): 5/5 motor strength present throughout Extrem Other: venous exam: No significant superficial varicosities or spider telangiectasias, minimal edema General: No clubbing, No cyanosis and No edema Psych Appearance: grossly normal Mental Status: mental status grossly normal Speech and movement: Normal speech and movement present Results Reviewed Results Reviewed: 05/10/2023-CT angiogram of neck and chest reviewed. No significant interval changes. Carotid subclavian bypass patent. Written report and images were reviewed. Assessment & Plan Assessment & Plan (1) Thoracic aortic atherosclerosis: Code(s): I70.0 - Atherosclerosis of aorta Plan: In short patient originally had aberrant subclavian artery. This appears to be of treated appropriately in doing well. In addition she is being followed for thoracic stent graft. Imaging appears to be within normal limits. We discussed routine risk factor modification. The patient will follow up with us in approximately [address] year's time with repeat CT angiogram. Thank you for allowing us to assist in her care. If there are any questions or concerns please do not hesitate to contact us. Orders: Orders Blood Urea Nitrogen 364 Days I70.0 - Atherosclerosis of aorta Creatinine 364 Days I70.0 - Atherosclerosis of aorta CT angio chest aorta 364 Days I70.0 - Atherosclerosis of aorta CT angio neck 364 Days I70.0 - Atherosclerosis of aorta Coding Level of Care Code Est Pt Level 4 (11375) Diagnoses Thoracic aortic atherosclerosis I70.0
[2023-05-22 09:20] VITALS: BMI 23.9
== END 2023-05-22 09:44 | disposition home or self-care (01) ==
PROVIDERS: PCP Internal Medicine; Visit Provider Surgery Vascular Surgery
DX: I70.0 Atherosclerosis of aorta (principal); Z95.828 Presence of other vascular implants and grafts
CPT/HCPCS: 99213

== ENCOUNTER → 2023-05-22 09:16 | Outpatient (BNVA) | payer MEDICARE, BC, SELFPAY | PROVIDERS: PCP Internal Medicine; Visit Provider Surgery Vascular Surgery ==

== ENCOUNTER 2023-06-05 11:34 | Outpatient (AMB) | payer MEDICARE, BC, SELFPAY ==
--- NOTE | 2023-06-05 11:35 | A.OFFVIS_ITS ---
Intake Intake Visit Reasons: 1 year follow up [facility] Intake Note: Patient presents for tele visit follow up [facility] Medications: none Blood Thinner: aspirin Value Analyst Required: Yes Value Analyst Language: Motorcycle Maker Name: Mana Information Interpreted: non-clinical & clinical Accompanied by: Self / Same As Patient Allergies amlodipine Allergy (Unknown, Verified 06/05/23 13:41) unk chlorpromazine [From Thorazine] Allergy (Unknown, Verified 06/05/23 13:41) Unknown doxepin Allergy (Unknown, Verified 06/05/23 13:41) unk haloperidol [Haldol] Allergy (Unknown, Verified 06/05/23 13:41) unk prochlorperazine [From Compazine] Allergy (Unknown, Verified 06/05/23 13:41) Unknown simvastatin Allergy (Unknown, Verified 06/05/23 13:41) unk thioridazine Allergy (Unknown, Verified 06/05/23 13:41) unk trifluoperazine Allergy (Unknown, Verified 06/05/23 13:41) Unknown valsartan Allergy (Unknown, Verified 06/05/23 13:41) Unknown Medication List - Last Reconciled 06/05/23 by KATT Simmons ascorbic acid (vitamin C) mg PO aspirin (Adult Aspirin Regimen) 81 mg PO DAILY biotin 800 mcg PO DAILY calcium mg PO [id number] mg tabs PO cane As directed cholecalciferol (vitamin D3) 50 mcg PO DAILY hydrochlorothiazide 12.5 mg PO QAM magnesium oxide 250 mg PO DAILY metoprolol succinate ER 100 mg PO DAILY pravastatin 40 mg PO BEDTIME Shower Chair As directed HPI HPI Comments History of Present Illness Details Maggy is a very pleasant 72-year-old Chadian-speaking female patient of Dr. Arreguin. She has a past medical history of achalasia, carpal tunnel syndrome, cystocele and rectocele with incomplete ureteral vaginal prolapse, dys lipidemia, hypertension, gastritis, overactive bladder, and type 2 diabetes. She is being follow-up on today via telehealth for her overactive bladder. In discussion with the patient today she reports to be doing and feeling well. She reports she continues to perform pelvic floor exercises at home as instructed through her previous therapist when attending pelvic floor therapy at [facility]. She denies any bothersome urinary symptoms at this time. She reports to be happy with her current voiding parameters. When asked she reports to be drinking plenty of water daily. She denies urinary urgency, urinary frequency, incontinence, nocturia, hematuria, dysuria, foul smelling urine, changes to urinary stream, flank pain, fever, and or chills. [facility] Medical History (Reviewed 06/05/23 @ 23:36 by MARYSE SimmonsEN[facility] Aberrant right subclavian artery Achalasia Carpal tunnel syndrome Cystocele and rectocele with incomplete uterovaginal prolapse Dyslipidemia Erythema intertrigo Essential hypertension Gastritis Hx of aortic aneurysm HX: benign breast biopsy Kommerell's diverticulum Overactive bladder Pelvic organ prolapse quantification stage 2 rectocele Pelvic organ prolapse quantification stage 3 cystocele Penetrating atherosclerotic ulcer of aorta Skin tags, multiple acquired Type 2 diabetes mellitus without complication, without long-term current use of insulin Urinary incontinence Surgical History H/O aortic aneurysm repair History of right salpingo-oophorectomy History of sacrocolpopexy History of vaginal hysterectomy Hx of colonoscopy Hx of total hysterectomy Status post left breast lumpectomy Family History Father No problems noted. Mother No problems noted. Brother No problems noted. Social History Housing: House Alcohol intake: never Patient Tobacco Use Status: Never used Tobacco e-Cigarette/Vaping Use: Never Used Current occupational status: retired Cognitive needs: No Hearing needs: No Vision needs: No Review of Systems Const Reports as per HPI Eyes Reports no additional complaints ENT Reports no additional complaints Card Reports as per HPI Resp Reports no additional complaints GI Reports as per HPI Reports as per HPI Musc Reports no additional complaints Neuro Reports no additional complaints Endo Reports as per HPI Physical Exam Const Orientation/consciousness: patient oriented x3 Resp Effort & Inspection: able to speak in complete sentences Neuro General: patient oriented x3 Psych Speech and movement: Clear speech present Attitude: cooperative Thought process: Normal thought process present Thought content: Normal thought content present Insight: Good insight present (Psych) Judgement: Good judgement present (Psych) Assessment & Plan Assessment & Plan (1) Overactive bladder: Code(s): N32.81 - Overactive bladder Plan Continue with pelvic floor exercises at home as discussed Patient denies any bothersome urinary symptoms at this time. Continue drinking plenty of water daily. Patient is happy with current voiding parameters. Follow-up in 1 year with [facility]; if not sooner with any issues, concerns, and or questions. Patient Instructions: The patient had an opportunity to ask questions regarding the treatment plan. All questions were answered. Physical exam, labs, and imaging were discussed and reviewed in detail. As well as risks, benefits, and discussion of treatment choices. No major barriers to understanding were identified. The patient expressed understanding and agreement with the above treatment plan. The patient was made aware they should contact our office by phone for worsening of their current condition, the appearance of new symptoms, or with any questions or concerns. Compliance is encouraged with any medications and follow up testing that is ordered. It is a privilege to be allowed the opportunity to participate in? your urological care.? Again, if you have any questions or concerns If you have any questions or concerns please do not hesitate to contact me. The office is [phone]. This note is constructed using voice recognition software. While every effort has been made to ensure accuracy reshipping clerk errors may have been included. Yours sincerely, ALFR[facility]O SimmonsCON[facility] Telehealth Telehealth Location of provider rendering services: practice address Location of patient: address on file Patient Identification confirmed using: Name, : Yes Telehealth method: voice only Patient verbally consented to treatment: Yes Patient verbally consented to billing insurance company: Yes Patient informed of any privacy concerns related to visit: Yes Minutes spent on Phone/Video with Pt.: 15 Coding Level of Care Code Tele Est Pt Level 2 (08842) Diagnoses Overactive bladder N32.81
== END 2023-06-05 13:41 | disposition home or self-care (01) ==
LOC: HO.HUSH 11:34
PROVIDERS: PCP Internal Medicine; Visit Provider Nurse Practitioner Family
DX: N32.81 Overactive bladder (principal)
CPT/HCPCS: 99442

== ENCOUNTER → 2023-06-05 11:34 | Outpatient (BNVA) | payer MEDICARE, BC, SELFPAY | PROVIDERS: PCP Internal Medicine; Visit Provider Nurse Practitioner Family ==

== ENCOUNTER 2023-06-13 08:04 | Outpatient (REF) | payer MEDICARE, BC, SELFPAY ==
[2023-06-13 09:01] LABS: Estimated Average Glucose 146 mg/dL; Hemoglobin A1c % 6.7 %
[2023-06-13 09:45] LABS: Alanine Aminotransferase 27 U/L (0-31); Anion Gap 13 (12-20); Aspartate Amino Transferase 25 U/L (5-31); Blood Urea Nitrogen 16 mg/dL (9-16); Calcium 9.4 mg/dL (8.4-10.2); Carbon Dioxide 28 mmol/L (22-29); Chloride 106 mmol/L (96-108); Cholesterol 167 mg/dL; Estimated Glomerular Filt Rate > 60; Glucose Fasting 164 mg/dL (60-99); HDL Cholesterol 52 mg/dL; LDL Cholesterol Calculated 96 mg/dl; Potassium 4.5 mmol/L (3.3-5.1); Sodium 142 mmol/L (135-145); Triglycerides 95 mg/dL
== END 2023-06-13 08:05 | disposition home or self-care (01) ==
LOC: HO.LAB 08:04
PROVIDERS: PCP Internal Medicine; Visit Provider Internal Medicine
DX: E78.5 Hyperlipidemia, unspecified (principal); E11.9 Type 2 diabetes mellitus without complications; I10 Essential (primary) hypertension
CPT/HCPCS: 36415; 80048; 80061; 83036; 84450; 84460

== ENCOUNTER 2023-06-15 08:02 | Outpatient (AMB) | payer MEDICARE, BC, SELFPAY ==
--- NOTE | 2023-06-15 08:04 | MHC.PC.OV ---
Vital Signs 06/15/23 08:05 Height 5 ft 4 in Weight 143 lb BMI 24.5 BP 126/80 Blood Pressure Location Lt brachial Position Sitting Pulse 69 Pulse Source Pulse Oximeter Pulse Oximetry (%) 97 Oxygen Delivery Method Room Air Intake Visit Reasons: 4 Month follow up DM, HTN Intake Note: Pt is here today for 4 months follow up visit. Allergies amlodipine Allergy (Unknown, Verified 06/15/23 08:20) unk chlorpromazine [From Thorazine] Allergy (Unknown, Verified 06/15/23 08:20) Unknown doxepin Allergy (Unknown, Verified 06/15/23 08:20) unk haloperidol [Haldol] Allergy (Unknown, Verified 06/15/23 08:20) unk prochlorperazine [From Compazine] Allergy (Unknown, Verified 06/15/23 08:20) Unknown simvastatin Allergy (Unknown, Verified 06/15/23 08:20) unk thioridazine Allergy (Unknown, Verified 06/15/23 08:20) unk trifluoperazine Allergy (Unknown, Verified 06/15/23 08:20) Unknown valsartan Allergy (Unknown, Verified 06/15/23 08:20) Unknown Medication List - Last Reconciled 06/15/23 by Bessy Arreguin MD ascorbic acid (vitamin C) mg PO aspirin (Adult Aspirin Regimen) 81 mg PO DAILY biotin 800 mcg PO DAILY calcium mg PO senilmx-ridnbvjwu-pbsw 333-133-8.3 mg tabs PO cane As directed cholecalciferol (vitamin D3) 50 mcg PO DAILY hydrochlorothiazide 12.5 mg PO QAM magnesium oxide 250 mg PO DAILY metoprolol succinate ER 100 mg PO DAILY naproxen 500 mg PO BID PRN omeprazole 20 mg PO DAILY pravastatin 40 mg PO BEDTIME Shower Chair As directed Tobacco use date assessed: 06/15/23 Dental Screening Dental Screen Date: 06/15/23 Did you have a dental visit in the last 12 months?: Yes Did you have a dental problem in the last 6 months where you did not have access to dental care?: No Was dental information given to patient?: Patient has dentist HPI 4 Month follow up DM, HTN HPI Details 32-year-old lady here today for follow-up diabetes mellitus hypertension and dyslipidemia. She has been refusing to take any medication for diabetes just wanting to control through diet and exercise. However, her hemoglobin A1c has been going up from 6.6% 3 months ago, now at 6.7%. Patient still would diet to try bring it down without taking any medications. Recent fasting lipids however are within normal limits. Pressure has been stable on current medications. Still complaining of pain in her right lower back, nonradiating. Fell last February down the stairs and landed on her back pain pain x-ray of lumbar spine only showed presence of arthritis no acute fractures or dislocations. She has been prescribed tramadol which he did not like and has only been taking ibuprofen which affords only temporary relief. Denies any accompanying urine or stool incontinence, no weakness, numbness or tingling in extremities. [facility] Medical History Aberrant right subclavian artery Achalasia Carpal tunnel syndrome Cystocele and rectocele with incomplete uterovaginal prolapse Dyslipidemia Erythema intertrigo Essential hypertension Gastritis Hx of aortic aneurysm HX: benign breast biopsy Kommerell's diverticulum Overactive bladder Pelvic organ prolapse quantification stage 2 rectocele Pelvic organ prolapse quantification stage 3 cystocele Penetrating atherosclerotic ulcer of aorta Skin tags, multiple acquired Type 2 diabetes mellitus without complication, without long-term current use of insulin Urinary incontinence Surgical History H/O aortic aneurysm repair History of right salpingo-oophorectomy History of sacrocolpopexy History of vaginal hysterectomy Hx of colonoscopy Hx of total hysterectomy Status post left breast lumpectomy Family History Father No problems noted. Mother No problems noted. Brother No problems noted. Social History Housing: House Alcohol intake: never Patient Tobacco Use Status: Never used Tobacco e-Cigarette/Vaping Use: Never Used Current occupational status: retired Cognitive needs: No Hearing needs: No Vision needs: No Questionnaire Thrive Questionnaire Date Thrive assessed: 03/13/23 ASHLEY-7 AMB Questionnaire ASHLEY-7 Date ASHLEY - 7 assessed: 03/13/23 Source: Developed by Drs. Aníbal Singer, April Jackson, Raimundo Johnston and colleagues, with an educational darian from [email or web address]. Review of Systems Const Reports as per HPI, Denies fatigue, Denies headache(s), Denies malaise, Denies poor appetite and Denies weakness Eyes Reports no additional complaints ENT Details: Gets her eye exam yearly in [place], last done 2021 Reports Normal hearing present, Denies dizziness, Denies headache(s) and Denies disequilibrium Card Denies chest pain, Denies chest pain at rest, Denies chest pain with activity, Denies pedal edema, Denies irregular heart rhythm, Denies lightheadedness, Denies dyspnea and Denies dyspnea on exertion Resp Denies cough, Denies dyspnea and Denies dyspnea on exertion GI Denies abdominal pain, Denies melena, Denies hematochezia, Denies change in bowel habits, Reports heartburn (Occasional takes omeprazole as needed) and Denies nausea Reports no additional complaints Musc Reports as per HPI, Denies abnormal gait, Denies arthralgias, Denies joint swelling, Denies muscle cramps, Denies numbness, Denies radiating pain into limb, Reports stiffness and Denies tingling Skin/Breast Denies lesions, Denies rash, Denies skin ulcer and Denies wounds Neuro Reports Normal hearing present, Denies abnormal gait, Denies dizziness, Denies headache(s), Denies focal weakness, Denies numbness, Denies tingling, Denies paresthesias, Denies disequilibrium and Denies weakness Psych Reports no additional complaints Endo Denies fatigue, Denies polydipsia and Denies polyuria Too/Lymph Denies easy bleeding and Denies easy bruising Aller/Immun Reports no additional complaints Physical exam (Primary Care) Vital Signs: Last Vital Signs Pulse 69 06/15/23 08:05 BP 126/80 06/15/23 08:05 Pulse Ox 97 06/15/23 08:05 Oxygen Delivery Method Room Air 06/15/23 08:05 BMI result Body Mass Index 24.5 Tobacco/Smoking Status: Tobacco use Status Tobacco use date assessed 06/15/23 06/15/23 08:09 Patient Tobacco Use Status Never used Tobacco 06/15/23 08:09 e-Cigarette/Vaping Use Never Used 06/15/23 08:09 Thrive Assessment: Date of Thrive Assessment Date Thrive assessed 03/13/23 06/15/23 08:09 Const Other: Alert oriented x3, ambulatory with normal gait without assistance [facility] Other: Normocephalic, atraumatic, Eyes General: appearance normal, both eyes and all related structures Pupils: Equal, round and reactive pupils present EOM: EOMs intact bilaterally Neck Neck: Yes full ROM, Yes no lymphadenopathy and Yes supple Chest Chest palpation & inspection: normal inspection of the chest and normal palpation of entire chest wall Resp Auscultation: clear to auscultation bilaterally Cardio Other: S1-S2 present regular rate and rhythm GI Other: Normal bowel sounds, soft, nontender with no mass palpated Back/Spine/Pelvis Other: Spine midline, no gross bone deformity, no lesions, slight tenderness on palpation over right lower back Thoracic/Lumbar Spine: straight leg raise negative bilaterally and paraspinal muscle tenderness on the left in the lower lumbar Skin General skin exam: no rashes or lesions noted Neuro General: gait normal, tone normal, moves all extremities and no focal motor deficits Cranial nerves: Yes Equal, round and reactive pupils present and Yes Normal hearing present Gait exam (Neuro): Normal gait present Motor exam (neuro): 5/5 motor strength present throughout Sensory Exam: double simultaneous stimulation for sensation normal Romberg Test: Negative Extrem General: Yes full ROM, Yes no joint enlargement, Yes no clubbing, cyanosis or edema, Yes no calf tenderness and Yes normal gait Results Reviewed Results Reviewed: NTERED: 06/13/23-[address]: ORDERED: Met Prof Fast, AST, ALT, Lipid Panel Test Result Flag Reference Site Sodium 142 135-145 mmol/L Potassium 4.5 3.3-5.1 mmol/L CL 106 96-108 mmol/L CO2 28 22-29 mmol/L Gap 13 12-20 BUN 16 9-16 mg/dL Creat 0.83 0.5-1.4 mg/dL EGFR > 60 NOTE: For -[place] individuals, multiply the result by 1.210. Chronic Kidney Disease: Estimated GFR < 60 mL/min/1.73m2 Severe Kidney Disease: Estimated GFR < 15 mL/min/1.73m2 FBS 164 H 60-99 mg/dL A fasting glucose of 126 mg/dl or greater on more than one occasion is considered diagnostic of diabetes. CA 9.4 8.4-10.2 mg/dL AST (GOT) 25 5-31 U/L ALT (GPT) 27 0-31 U/L Triglyceride 95 mg/dL Desirable Triglyceride: less than 150 mg/dL Borderline High Triglyceride 150-199 mg/dL High Triglyceride: 200-499 mg/dL Very High Triglyceride: greater than or equal to 5OO mg/dL Chol 167 mg/dL Desirable Cholesterol: less than 200 mg/dL Borderline High Cholesterol: 200-239 mg/dL High Cholesterol: greater than 239 mg/dL LDL Calculated 96 mg/dl Desirable LDL: less than 100 mg/dL Near Optimal/Above Optimal LDL: 110-129 mg/dL Borderline High LDL: 130-159 mg/dL High LDL: 160-189 mg/dL Very High LDL: greater than or equal to 190 mg/dL HDL 52 mg/dL Desirable HDL: greater than 40 mg/dL Laboratory Tests 02/16/23 06/13/23 12:13 08:28 Estimat Average Glucose 143 146 Hemoglobin A1c % 6.6 6.7 Laboratory Tests 02/16/23 15:00 Urine Creatinine 26.40 Urine Microalbumin < 5.0 Microalb/Creat Ratio TNP Assessment and Plan Assessment & Plan (1) Lumbago: Code(s): M54.5 - Low back pain Qualifiers: Back pain laterality: bilateral Chronicity: acute Sciatica presence: without sciatica Qualified Code(s): M54.5 - Low back pain Plan: Take Tylenol arthritis 650 mg twice a day as needed, and may alternate it with naproxen 500 mg, always take with food and take only as needed for pain. advised to try applying Salonpas patch to affected area every 8 hours as needed muscle pain. Declined referred to physical therapy at this time due to transportation issues. Call if no improvement of symptoms noted (2) Gastritis: Code(s): K29.70 - Gastritis, unspecified, without bleeding Plan: Has been taking [id number] omeprazole (3) Type 2 diabetes mellitus without complication, without long-term current use of insulin: Code(s): E11.9 - Type 2 diabetes mellitus without complications Plan: Recent lab results reviewed with patient, with sugar and hemoglobin A1c higher than last check at 6.7%. Patient still declines to start any oral medications, would like to see if she can still continue lowering her blood sugar through diet and exercise. Reinforced diabetic diet and regular exercise with patient. Counseled regarding importance of yearly diabetes retinopathy screening, patient states she gets her eye exams in [place] yearly, advised to give us a copy of results. Patient advised to inspect feet daily, for any signs of injury, callus or infection. Compliance with diet and regular exercise again stressed. Blood pressure goal is less than 130/80, goal LDL is less than 100 and goal hemoglobin A1c is less than 7% follow-up appointment made in-3--months, after fasting labs done.. Reminded to get her COVID booster, yearly flu shot and her shingles vaccination. Urine microalbumin is negative (4) Dyslipidemia: Code(s): E78.5 - Hyperlipidemia, unspecified Plan: Reviewed recent fasting lipid profile with patient with levels within normal . Continue with pravastatin 40 mg at bedtime , in addition to adherence to low-cholesterol diet and regular exercise, at least 30 minutes 3 to 4 times a week. Advised patient to make healthy food choices, eat more fruits, vegetables, whole grains, wild caught fish and low-fat dairy. Limit amount of meat and fried or fatty food products, as well as processed foods and fast foods. Follow-up scheduled with repeat fasting lipid panel in 3 months. (5) Essential hypertension: Code(s): I10 - Essential (primary) hypertension Plan: Blood pressure at goal of less than 130/80. Continue with hydrochlorothiazide 12.5 mg in the morning and metoprolol succinate ER 100 mg daily. Reinforced importance of following a low sodium diet, getting regular exercise, and lowering stress levels. Orders: Orders Hemoglobin and Hematocrit 08/29/23 E11.9 - Type 2 diabetes mellitus without complications, E78.5 - Hyperlipidemia, unspecified, K29.70 - Gastritis, unspecified, without bleeding, Z78.0 - Asymptomatic menopausal state Lipid Panel 08/29/23 E11.9 - Type 2 diabetes mellitus without complications, E78.5 - Hyperlipidemia, unspecified, K29.70 - Gastritis, unspecified, without bleeding, Z78.0 - Asymptomatic menopausal state Alanine Aminotransferase 08/29/23 E11.9 - Type 2 diabetes mellitus without complications, E78.5 - Hyperlipidemia, unspecified, K29.70 - Gastritis, unspecified, without bleeding, Z78.0 - Asymptomatic menopausal state Aspartate Amino Transferase 08/29/23 E11.9 - Type 2 diabetes mellitus without complications, E78.5 - Hyperlipidemia, unspecified, K29.70 - Gastritis, unspecified, without bleeding, Z78.0 - Asymptomatic menopausal state Basic Metabolic Panel Fasting 08/29/23 E11.9 - Type 2 diabetes mellitus without complications, E78.5 - Hyperlipidemia, unspecified, K29.70 - Gastritis, unspecified, without bleeding, Z78.0 - Asymptomatic menopausal state Hemoglobin A1c 08/29/23 E11.9 - Type 2 diabetes mellitus without complications, E78.5 - Hyperlipidemia, unspecified, K29.70 - Gastritis, unspecified, without bleeding, Z78.0 - Asymptomatic menopausal state Vitamin D 25-OH Total 08/29/23 E11.9 - Type 2 diabetes mellitus without complications, E78.5 - Hyperlipidemia, unspecified, K29.70 - Gastritis, unspecified, without bleeding, Z78.0 - Asymptomatic menopausal state Medications: New naproxen 500 mg PO BID PRN 30 tabs 0RF pain M54.5 - Low back pain Coding Level of Care Code Est Pt Level 4 (10943) Diagnoses Lumbago M54.5 Back pain laterality: bilateral Chronicity: acute Sciatica presence: without sciatica Gastritis K29.70 Type 2 diabetes mellitus without complication, without long-term current use of insulin E11.9 Dyslipidemia E78.5 Essential hypertension I10
[2023-06-15 08:05] VITALS: BP 126/80; PULSE 69; O2SAT 97; BMI 24.5
== END 2023-06-15 09:20 | disposition home or self-care (01) ==
PROVIDERS: Visit Provider Internal Medicine
DX: E11.9 Type 2 diabetes mellitus without complications (principal); I10 Essential (primary) hypertension; M54.50 Low back pain, unspecified; K29.70 Gastritis, unspecified, without bleeding; E78.5 Hyperlipidemia, unspecified
CPT/HCPCS: 99214

== ENCOUNTER 2024-05-13 08:57 | Outpatient (REF) | payer MEDICARE, BC, SELFPAY ==
--- NOTE | ~2024-05-13 | MM_ITS ---
EXAMINATION: MM DIAGNOSTIC DIGITAL BREAST TOMOSYNTHESIS, BILATERAL CLINICAL INFORMATION: 1 year follow-up (final) for 3 separate groups of probably benign calcifications in the left breast. Patient also due for yearly bilateral screening. Remote history of unknown surgery to left breast, x2, in [place]. COMPARISON: Mammography: 01/10/2023, 03/13/2022 left, 08/17/2021 (BI-RADS 3) 08/04/2021 (BI-RADS 0). More remote priors are unobtainable (from [place]). TECHNIQUE: Digital breast tomosynthesis is performed in both the craniocaudal and mediolateral oblique views along with computer-aided detection (CAD). Synthesized 2D images are generated from the tomosynthesis. In addition, 2-D spot magnification left CC and ML views were obtained of the left breast. FINDINGS: There are scattered areas of fibroglandular density (ACR BI-RADS breast composition Category b). The 3 groups of calcifications in the left breast are completely unchanged from prior studies dating back to 08/17/2021, and hence are benign. No further follow-up recommended. There is a post benign biopsy clip in the inferomedial left breast, unchanged. There are mild vascular calcifications. There are stable benign calcifications in the right breast, without aggressive change. These were previously worked up. Otherwise, no suspicious masses, or areas of architectural distortion are identified in either breast. The parenchymal pattern is stable and unchanged from prior exams. No skin or axillary abnormalities. MM/MM tomosynthesis diagnostic BI IMPRESSION: -There are no findings in either breast suspicious for malignancy. -3 groups of calcifications being followed in the left breast are stable over 2 years and hence benign. No further follow-up recommended. -There are stable benign calcifications in the right breast. -Recommend this patient return to routine annual screening to include both breasts. ASSESSMENT: BI-RADS BI-RADS 2 - Benign Findings RECOMMENDATION: 1 year F/U Results were provided to the patient at time of visit by the technologist. This patient's information was entered into a reminder system with a target due date for their next mammogram.
[2024-05-13 09:21] LABS: Hematocrit 37.1 % (37.0-47.0); Hemoglobin 12.7 g/dl (12.0-16.0)
[2024-05-13 09:28] LABS: Estimated Average Glucose 146 mg/dL; Hemoglobin A1c % 6.7 % (<6.0)
[2024-05-13 10:06] LABS: Alanine Aminotransferase 21 U/L (0-31); Anion Gap 14 (12-20); Aspartate Amino Transferase 23 U/L (5-31); Blood Urea Nitrogen 13 mg/dL (9-16); Calcium 9.4 mg/dL (8.4-10.2); Carbon Dioxide 25 mmol/L (22-29); Chloride 105 mmol/L (96-108); Cholesterol 208 mg/dL (<200); Estimated Glomerular Filt Rate > 60; Glucose Fasting 158 mg/dL (60-99); HDL Cholesterol 50 mg/dL (>40); LDL Cholesterol Calculated 132 mg/dL (<100); Potassium 4.1 mmol/L (3.3-5.1); Sodium 140 mmol/L (135-145); Triglycerides 132 mg/dL (<150)
[2024-05-13 10:12] LABS: Vitamin D 25-OH Total 42.6 ng/mL (>30)
== END 2024-05-13 08:58 | disposition home or self-care (01) ==
LOC: HO.MAMMO 08:57
PROVIDERS: PCP Internal Medicine; Visit Provider Internal Medicine
DX: Z78.0 Asymptomatic menopausal state (principal); K29.70 Gastritis, unspecified, without bleeding; E11.9 Type 2 diabetes mellitus without complications; E78.5 Hyperlipidemia, unspecified; R92.1 Mammographic calcification found on diagnostic imaging of breast; Z98.890 Other specified postprocedural states
CPT/HCPCS: 36415; 77062; 77066; 80048; 80061; 82306; 83036; 84450; 84460; 85014; 85018

== ENCOUNTER → 2024-05-13 11:00 | Outpatient (BNV) | payer MEDICARE, BC, SELFPAY | PROVIDERS: PCP Internal Medicine; Visit Provider Radiology Diagnostic Radiology | DX: R92.1 Mammographic calcification found on diagnostic imaging of breast (principal) | CPT/HCPCS: 77066; G0279 ==

== ENCOUNTER 2024-05-15 08:28 | Outpatient (AMB) | payer MEDICARE, BC, SELFPAY ==
[2024-05-15 09:10] VITALS: BP 120/78; PULSE 69; O2SAT 98; BMI 23.2
--- NOTE | 2024-05-15 09:10 | MHC.PC.OV ---
Vital Signs 05/15/24 09:10 Height 5 ft 4 in Weight 135 lb BMI 23.2 BP 120/78 Blood Pressure Location Rt brachial Position Sitting Pulse 69 Pulse Source Pulse Oximeter Pulse Oximetry (%) 98 Oxygen Delivery Method Room Air Intake Visit Reasons: Follow up and evaluation Intake Note: Pt is her today to f/u labs results Allergies amlodipine Allergy (Unknown, Verified 05/15/24 09:33) unk chlorpromazine [From Thorazine] Allergy (Unknown, Verified 05/15/24 09:33) Unknown doxepin Allergy (Unknown, Verified 05/15/24 09:33) unk haloperidol [Haldol] Allergy (Unknown, Verified 05/15/24 09:33) unk prochlorperazine [From Compazine] Allergy (Unknown, Verified 05/15/24 09:33) Unknown simvastatin Allergy (Unknown, Verified 05/15/24 09:33) unk thioridazine Allergy (Unknown, Verified 05/15/24 09:33) unk trifluoperazine Allergy (Unknown, Verified 05/15/24 09:33) Unknown valsartan Allergy (Unknown, Verified 05/15/24 09:33) Unknown Medication List - Last Reconciled 05/15/24 by Bessy Arreguin MD ascorbic acid (vitamin C) mg PO aspirin (Adult Aspirin Regimen) 81 mg PO DAILY biotin 800 mcg PO DAILY calcium mg PO [id number]-[id number]-ycyk 333-133-8.3 mg tabs PO cane As directed cholecalciferol (vitamin D3) 50 mcg PO DAILY hydrochlorothiazide 12.5 mg PO QAM magnesium oxide 250 mg PO DAILY metoprolol succinate ER 100 mg PO DAILY naproxen 500 mg PO BID PRN Shower Chair As directed Tobacco use date assessed: 05/15/24 Fall risk assessment: No Falls in past year Last assessed Fall Risk: 05/15/24 Dental Screening Dental Screen Date: 05/15/24 Did you have a dental visit in the last 12 months?: Yes Did you have a dental problem in the last 6 months where you did not have access to dental care?: No Was dental information given to patient?: Patient has dentist HPI Follow up and evaluation HPI Details 73-year-old lady with dyslipidemia and diabetes mellitus, here today for follow-up. She had recent fasting labs done which showed hemoglobin A1c at 7.6%, and fasting lipids showing LDL cholesterol above 100 mg/dL. Patient states that she has been trying to follow recommended diet , but has not been getting any regular exercise this past few months. Was in [place] helping out with taking care of a family member that sick.. She also states that she stopped taking her pravastatin because she read on [employer] that it was very bad for her memory. She already did not notice any problems or side effects from pravastatin when she was taking in the past and fasting lipids at that time was within normal limit. She was complaining of dysphagia to both solids and liquids and had an upper endoscopy and colonoscopy done while she was in [place] 02/19/2024, which showed nonerosive gastritis with suspected achalasia. Esophageal manometry was attempted but patient was unable to tolerate it. Colonoscopy showed only presence of a tortuous interested colon with diverticulosis present and internal hemorrhoids. She is also complaining of hyperpigmentation and slight itching in distal part of her lower extremities, which started after she got bit by mosquitos while in [place] she has applied Neutrogena is cream which she states made things. Requesting referral to Dermatology. [facility] Medical History (Updated 05/18/24 @ 16:27 by Bessy Arreguin MD) Rash and nonspecific skin eruption Nonerosive nonspecific gastritis Dysphagia Overactive bladder Skin tags, multiple acquired Erythema intertrigo Cystocele and rectocele with incomplete uterovaginal prolapse Pelvic organ prolapse quantification stage 2 rectocele Pelvic organ prolapse quantification stage 3 cystocele Urinary incontinence 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 Mother No problems noted. Brother No problems noted. Social History Housing: House Alcohol intake: never Patient Tobacco Use Status: Never used Tobacco e-Cigarette/Vaping Use: Never Used Current occupational status: retired Cognitive needs: No Hearing needs: No Vision needs: No Questionnaire PHQ-9 Over the last 2 weeks, how often have you been bothered by any of the following problems? 1. Little interest or pleasure in doing things: not at all 2. Feeling down, depressed, or hopeless: not at all 3. Trouble falling or staying asleep, or sleeping too much: not at all 4. Feeling tired or having little energy: not at all 5. Poor appetite or overeating: not at all 6. Feeling bad about yourself - or that you are a failure or have let yourself or your family down: not at all 7. Trouble concentrating on things, such as reading the newspaper or watching television: not at all 8. Moving or speaking so slowly that other people could have noticed. Or the opposite - being so fidgety or restless that you have been moving around a lot more than usual: not at all 9. Thoughts that you would be better off or of hurting yourself in some way: not at all Total score: 0 Depression Screening Interpretation: Negative Depression Screening Done: Yes 21967 - PHQ-9 Billing: Yes Source: Developed by Drs. Aníbal Singer, April Jackson, Raimundo Johnston and colleagues, with an educational darian from [employer]. Thrive Questionnaire Date Thrive assessed: 05/15/24 I am a: Patient What is your living situation today?: I have a steady place to live Within the past 12 months, did the food you bought not last and you didn't have the money to get more?: Never true Within the past 12 months, did you worry whether your food would run out before you got money to buy more?: Never true Do you have trouble paying for medicines?: No Do you have trouble getting transportation to medical appointments?: Yes Do you have trouble paying your heating and electricity bill?: No Do you have trouble taking care of your child, family member or friend?: No Do you have trouble with day-to-day activities such as bathing, preparing meals, shopping, managing finances, etc.?: No Are you currently unemployed and looking for a job?: No Are you interested in more education?: No Please select the resources that you would like help with: Transportation Currently or been in a relationship where the following occur: No concerns reported THRIVE Score: 1 AUDIT C Alcohol Use Questionnaire (AUDIT-C) 1. How often do you have a drink containing alcohol?: Never Total Score: 0 ASHLEY-7 AMB Questionnaire ASHLEY-7 Date ASHLEY - 7 assessed: 03/13/23 Feeling nervous, anxious, or on edge: 0 = Not at all Not being able to stop or control worryin = Not at all Worrying too much about different things: 0 = Not at all Trouble relaxin = Not at all Being so restless that it is hard to sit still: 0 = Not at all Becoming easily annoyed or irritable: 0 = Not at all Feeling afraid as if something awful might happen: 0 = Not at all Total ASHLEY-7 score (0-4 normal; 5-9 mild; 10-14 moderate; 15-21 severe): 0 Source: Developed by Drs. Aníbal Singer, April Jackson, Raimundo Johnston and colleagues, with an educational darian from [employer]. Review of Systems Const Denies fatigue, Denies headache(s), Denies malaise, Denies poor appetite and Denies weakness Eyes Reports no additional complaints ENT Reports Normal hearing present, Denies dizziness, Denies headache(s) and Denies disequilibrium Card Denies chest pain, Denies chest pain at rest, Denies chest pain with activity, Denies pedal edema, Denies irregular heart rhythm, Denies lightheadedness, Denies dyspnea and Denies dyspnea on exertion Resp Denies cough, Denies dyspnea and Denies dyspnea on exertion GI Denies abdominal pain, Denies melena, Denies hematochezia, Denies change in bowel habits, Reports heartburn (Occasional takes omeprazole as needed) and Denies nausea Reports no additional complaints Musc Reports as per HPI, Denies abnormal gait, Denies arthralgias, Denies joint swelling, Denies muscle cramps and Reports stiffness Skin/Breast Denies lesions, Denies rash, Denies skin ulcer and Denies wounds Neuro Reports Normal hearing present, Denies abnormal gait, Denies dizziness, Denies headache(s), Denies focal weakness, Denies paresthesias, Denies disequilibrium and Denies weakness Psych Reports no additional complaints Endo Denies fatigue, Denies polydipsia and Denies polyuria Too/Lymph Denies easy bleeding and Denies easy bruising Aller/Immun Reports no additional complaints Physical exam (Primary Care) Vital Signs: Last Vital Signs Pulse 69 05/15/24 09:10 BP 120/78 05/15/24 09:10 Pulse Ox 98 05/15/24 09:10 Oxygen Delivery Method Room Air 05/15/24 09:10 BMI result Body Mass Index 23.2 Tobacco/Smoking Status: Tobacco use Status Tobacco use date assessed 05/15/24 05/15/24 09:14 Patient Tobacco Use Status Never used Tobacco 05/15/24 09:14 e-Cigarette/Vaping Use Never Used 05/15/24 09:14 PHQ-9: PHQ-9 Score PHQ-9: Total score 0 05/15/24 09:33 Depression Screening Interpretation: Negative Thrive Assessment: Date of Thrive Assessment Date Thrive assessed 05/15/24 05/15/24 09:14 Currently or been in a relationship where the following occur: No concerns reported Const Other: Alert oriented x3, ambulatory with normal gait without assistance HENMT Head: Yes normocephalic Ears: external ears normal General nose exam: Normal external nose present Face and sinus: Yes face symmetric Mouth: Normal oral and palatal mucosa present and moist mucous membranes Eyes General: appearance normal, both eyes and all related structures Pupils: Equal, round and reactive pupils present EOM: EOMs intact bilaterally Neck Neck: Yes full ROM, Yes no lymphadenopathy and Yes supple Chest Chest palpation & inspection: normal inspection of the chest and normal palpation of entire chest wall Resp Auscultation: clear to auscultation bilaterally Cardio Other: S1-S2 present regular rate and rhythm GI Other: Normal bowel sounds, soft, nontender with no mass palpated Skin Other: Dry skin, hyperpigmentation noted on distal half of both lower extremities, no rash seen Neuro General: gait normal, tone normal, moves all extremities and no focal motor deficits Cranial nerves: Yes Equal, round and reactive pupils present and Yes Normal hearing present Gait exam (Neuro): Normal gait present Motor exam (neuro): 5/5 motor strength present throughout Sensory Exam: double simultaneous stimulation for sensation normal Romberg Test: Negative Extrem General: Yes full ROM, Yes no joint enlargement, Yes no clubbing, cyanosis or edema, Yes no calf tenderness and Yes normal gait Results Reviewed Results Reviewed: Name: Maggy Hamilton Age/Sex: 73/F [facility] 1950 [id number] Unit#: [id number] Attend Dr: Bessy Arreguin MD Re05/13/24 Status: DEP REF Location: [facility] Disch: SPEC : [id number] NATALIE: 05/13/24 STATUS: COMP REQ : [id number] RECD: 05/13/[address]: Bessy Arreguin MD COMP: 05/13/24 ENTERED: 05/13/[address] [facility] [address]: ORDERED: Met Prof Fast, AST, ALT, Lipid Panel, Vitamin D 25-OH Test Result Flag Reference Sodium 140 135-145 mmol/L Potassium 4.1 3.3-5.1 mmol/L CL 105 96-108 mmol/L CO2 25 22-29 mmol/L Gap 14 12-20 BUN 13 9-16 mg/dL Creat 0.80 0.5-1.4 mg/dL EGFR > 60 NOTE: For -[place] individuals, multiply the result by 1.210. Chronic Kidney Disease: Estimated GFR < 60 mL/min/1.73m2 Severe Kidney Disease: Estimated GFR < 15 mL/min/1.73m2 FBS 158 H 60-99 mg/dL A fasting glucose of 126 mg/dl or greater on more than one occasion is considered diagnostic of diabetes. CA 9.4 8.4-10.2 mg/dL AST (GOT) 23 5-31 U/L ALT (GPT) 21 0-31 U/L Triglyceride 132 <150 mg/dL Desirable Triglyceride: less than 150 mg/dL Borderline High Triglyceride 150-199 mg/dL High Triglyceride: 200-499 mg/dL Very High Triglyceride: greater than or equal to 5OO mg/dL Cholesterol 208 H <200 mg/dL Desirable Cholesterol: less than 200 mg/dL Borderline High Cholesterol: 200-239 mg/dL High Cholesterol: greater than 239 mg/dL LDL Calculated 132 H <100 mg/dL Desirable LDL: less than 100 mg/dL Near Optimal/Above Optimal LDL: 110-129 mg/dL Borderline High LDL: 130-159 mg/dL High LDL: 160-189 mg/dL Very High LDL: greater than or equal to 190 mg/dL HDL 50 >40 mg/dL Desirable HDL: greater than 40 mg/dL Note: This HDL assay may give artificially low results in patients with liver disease. Vit D 25-OH Tot 42.6 >30 ng/mL Health Based Reference Values* < 20 ng/mL Deficient 20-30 ng/mL Insufficient > 30 ng/mL Sufficient Laboratory Tests 05/13/24 09:14 Hgb 12.7 Hct 37.1 Estimat Average Glucose 146 Hemoglobin A1c % 6.7 H Assessment and Plan Assessment & Plan (1) Dysphagia: Code(s): R13.10 - Dysphagia, unspecified Qualifiers: Dysphagia type: unspecified Qualified Code(s): R13.10 - Dysphagia, unspecified Plan: Reviewed results of upper endoscopy and colonoscopy from per 2D echo done 02/19/2024. Referral to GI Clinic for further evaluation management patient would like referral to a female provider.. Patient has been taking [id number] omeprazole as needed for occasional heartburn symptoms. (2) Nonerosive nonspecific gastritis: Code(s): K29.60 - Other gastritis without bleeding Plan: Referral to GI clinic ordered (3) Rash and nonspecific skin eruption: Code(s): R21 - Rash and other nonspecific skin eruption Plan: Dermatology consult ordered (4) Dyslipidemia: Code(s): E78.5 - Hyperlipidemia, unspecified Plan: Reviewed recent fasting lipid profile with patient with elevated LDL cholesterol and triglycerides . Patient has discontinue taking pravastatin, explained to patient the risks and benefits of not being on statin, will start her on rosuvastatin instead 5 mg per tablet to take 1 every other day , in addition to adherence to low-cholesterol diet and regular exercise, at least 30 minutes 3 to 4 times a week. Advised patient to make healthy food choices, eat more fruits, vegetables, whole grains, wild caught fish and low-fat dairy. Limit amount of meat and fried or fatty food products, as well as processed foods and fast foods. Follow-up scheduled with repeat fasting lipid panel in 3 months. (5) Type 2 diabetes mellitus without complication, without long-term current use of insulin: Code(s): E11.9 - Type 2 diabetes mellitus without complications Plan: Recent lab results reviewed with patient, with sugar and hemoglobin A1c at 6.7%, unchanged from previous visit. Stressed importance of following strictly her diabetic diet and getting regular exercise with patient. Counseled regarding importance of yearly diabetes retinopathy screening, patient states she is up-to-date with her eye exam, had it done in [place] recently.. Patient advised to inspect feet daily, for any signs of injury, callus or infection. Compliance with diet and regular exercise again stressed. Blood pressure goal is less than 130/80, goal LDL is less than 100 and goal hemoglobin A1c is less than 6.5% follow-up appointment made in-3--months, after fasting labs done. Orders: Orders Hemoglobin A1c 07/29/24 E11.9 - Type 2 diabetes mellitus without complications, E78.5 - Hyperlipidemia, unspecified, K29.70 - Gastritis, unspecified, without bleeding Basic Metabolic Panel Fasting 07/29/24 E11.9 - Type 2 diabetes mellitus without complications, E78.5 - Hyperlipidemia, unspecified, K29.70 - Gastritis, unspecified, without bleeding Alanine Aminotransferase 07/29/24 E11.9 - Type 2 diabetes mellitus without complications, E78.5 - Hyperlipidemia, unspecified, K29.70 - Gastritis, unspecified, without bleeding Aspartate Amino Transferase 07/29/24 E11.9 - Type 2 diabetes mellitus without complications, E78.5 - Hyperlipidemia, unspecified, K29.70 - Gastritis, unspecified, without bleeding Lipid Panel 07/29/24 E11.9 - Type 2 diabetes mellitus without complications, E78.5 - Hyperlipidemia, unspecified, K29.70 - Gastritis, unspecified, without bleeding Referrals Dermatology Referral R21 - Rash and other nonspecific skin eruption Gastroenterology Referral K29.60 - Other gastritis without bleeding, R13.10 - Dysphagia, unspecified Medications: New rosuvastatin 5 mg PO Q2D 3 months 45 tabs 2RF E11.9 - Type 2 diabetes mellitus without complications, E78.5 - Hyperlipidemia, unspecified Coding Level of Care Code Est Pt Level 4 (84910) Complex EM visit Add On G2211 Diagnoses Dysphagia, unspecified type R13.10 Dysphagia type: unspecified Nonerosive nonspecific gastritis K29.60 Rash and nonspecific skin eruption R21 Dyslipidemia E78.5 Type 2 diabetes mellitus without complication, without long-term current use of insulin E11.9
== END 2024-05-15 10:17 | disposition home or self-care (01) ==
PROVIDERS: PCP Internal Medicine; Visit Provider Internal Medicine
DX: E11.69 Type 2 diabetes mellitus with other specified complication (principal); E78.5 Hyperlipidemia, unspecified; R13.10 Dysphagia, unspecified; K29.60 Other gastritis without bleeding; R21 Rash and other nonspecific skin eruption
CPT/HCPCS: 99214; G2211

== ENCOUNTER 2024-05-20 08:42 | Outpatient (REF) | payer MEDICARE, BC, SELFPAY ==
[2024-05-20 09:56] LABS: Blood Urea Nitrogen 11 mg/dL (9-16); Estimated Glomerular Filt Rate > 60
== END 2024-05-20 08:43 | disposition home or self-care (01) ==
LOC: HO.LAB 08:42
PROVIDERS: PCP Internal Medicine; Visit Provider Surgery Vascular Surgery
DX: I70.0 Atherosclerosis of aorta (principal)
CPT/HCPCS: 36415; 82565; 84520

== ENCOUNTER 2024-05-27 08:24 | Outpatient (REF) | payer MEDICARE, BC, SELFPAY ==
--- NOTE | ~2024-05-27 | CT_ITS ---
EXAMINATION: CT ANGIOGRAM OF THE CHEST WITHOUT AND WITH CONTRAST CLINICAL INFORMATION: Atherosclerosis of the aorta, right subclavian artery occlusion with bypass graft COMPARISON: CTA chest from 05/10/2023 TECHNIQUE: Multidetector volumetric CT imaging of the chest was performed before and after the administration of 70 mL of Omnipaque 350 intravenous contrast without immediate adverse reactions. 3D POSTPROCESSING: Multiple 3-D angiographic images were processed from the initial data set by the generation engineering technologist at the modality workstation under concurrent physician supervision. DOSE LOWERING TECHNIQUES: This CT examination was performed using dose optimization techniques as appropriate, variously including the following: - Automated exposure control - Adjustment of mA and/or kV according to patient size (this includes techniques or standardized protocols for targeted exams where dose is matched to indication/reason for exam; i.e. extremities or head) - Use of iterative reconstruction technique DLP: 497 mGy-cm. FINDINGS: VASCULAR: ASCENDING AORTA: Normal caliber and patent. Mid segment measures 3.2 x 3.0 cm. AORTIC ARCH: The mid aortic arch 2.7 x 2.6 cm. 2-vessel arch anatomy. Bilateral common carotid arteries and a left subclavian artery are patent and normal in caliber. The left vertebral artery is patent. 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 There is a right common carotid artery to mid subclavian artery bypass graft which is widely patent. DESCENDING AORTA: The proximal segment measures 2.4 x 2.4 cm. The distal segment measures 2.4 x 2.1 cm. Postsurgical changes is seen along the descending thoracic aorta most consistent with open tube graft repair. Aorta is widely patent. ABDOMINAL AORTA: Visualized proximal abdominal aorta is normal in caliber. NONVASCULAR: LUNGS: The lungs are clear with no evidence of inflammation or nodules. Atelectasis versus scarring is seen in the lingula and lateral left lower lobe. MEDIASTINUM: The mediastinum is normal. CORONARY ARTERY CALCIFICATION: None visualized on this study. PLEURA: There is no pleural effusion. No pleural mass or thickening. ABDOMINAL VISCERA: Unremarkable OSSEOUS STRUCTURES: Surgical changes seen in the left posterior fifth and sixth ribs. Old healed left lateral rib fractures CT/CT angio chest aorta IMPRESSION: 1. Postsurgical changes seen along the descending thoracic aorta most consistent with open tube graft repair. 2. Right common carotid artery to mid subclavian artery bypass graft is widely patent. 3. 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
--- NOTE | ~2024-05-27 | CT_ITS ---
EXAMINATION: CT ANGIOGRAM NECK CLINICAL INFORMATION: Atherosclerosis of the aorta. Further history of left upper extremity swelling elicited from provider COMPARISON: CTA neck 05/10/2023 TECHNIQUE: Test bolus sequences followed by intravenous administration 70 mL of Omnipaque. Helical imaging was performed in the axial plane from the aortic arch to the skull base. The data was processed at the cytotechnologist/histotechnologist's workstation for generation of MIP sequences. Angled MIPs and volume rendered reformatted images were also generated at an offline 3D workstation. Stenoses are assessed in accordance with Stenoses are assessed in accordance with Tim et al. Quantification of Carotid Stenosis on CT Angiography. AJR 2006. 27(1):13-19. This CT examination was performed using dose optimization techniques as appropriate, variously including the following: *Automated exposure control *Adjustment of mA and/or kV according to patient size (this includes techniques or standardized protocols for targeted exams where dose is matched to indication/reason for exam; i.e. extremities or head) *Use of iterative reconstruction technique DLP: 436.78 mGy-cm FINDINGS: CTA NECK: Postsurgical changes again seen following open tube graft repair of the descending thoracic aorta. Common origin of the left common carotid and brachiocephalic arteries. As before, the [place] right subclavian artery is occluded at its origin and there is a patent right common carotid artery to subclavian artery bypass graft. Redemonstration of a fibrous shelf along the proximal graft resulting in stable approximately 50% stenosis. The common carotid arteries are widely patent. The left carotid bifurcation is normal. Again noted partially calcified fibrofatty plaque at the right carotid bifurcation contributing to stable mild (less than 50%) luminal narrowing of the right ICA origin. Atheromatous luminal irregularity with small ulcerative plaque seen along the medial wall of the right carotid bulb. The right internal carotid artery is otherwise widely patent. The left vertebral artery is dominant. Widely patent left vertebral artery origin. Again seen linear filling defect along the medial wall of the distal left V1 vertebral artery compatible with intimal flap related to remote dissection. Left-sided uncovertebral joint hypertrophy at C5-C6 minimally narrows the left V2 vertebral artery, which is otherwise widely patent throughout its extracranial course. 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 Redemonstrated diminutive contrast filling with multifocal stenoses along the V2 segment with reocclusion of the distal V2 segment at C2-C3 and possible faint reconstituted filling of the distal V3 segment, although extensive opacification of the perivertebral venous plexus limits diagnostic assessment. Redemonstrated occluded intradural right vertebral artery with reconstituted contrast filling at the right PICA takeoff, presumably on a retrograde basis. The remainder of the imaged intracranial arterial vasculature is widely patent. 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 Redemonstrated calcific plaque along the bilateral cavernous and right supraclinoid segments. Stable 2.3 mm superomedially projecting saccular aneurysm arising from the right paraclinoid ICA. 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 The left internal jugular vein does not opacify below the skull base with abrupt absence of the contrast column best imaged on image 88, series 9 suspicious for interval thrombosis. Please note there was severe compression of the internal jugular vein between the styloid process and left C1 transverse process on prior CTA with preserved contrast filling of the internal jugular vein extending into the more caudal neck, now not opacifying. 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 Stable 7 mm left thyroid nodule below size criteria for imaging follow-up. Streaky linear atelectasis in the left upper lobe again seen. Stable cervical spondylosis. CT/CT angio neck IMPRESSION: 1. New abrupt loss of the contrast column of the left internal jugular vein below the skull base, suspicious for interval thrombosis. Please note there was severe compression of the internal jugular vein between the styloid process and left C1 transverse process on prior CTA with preserved contrast filling of the internal jugular vein within the neck more caudally, which is now not opacifying with contrast. Correlation with Doppler ultrasound advised. 2. Stable appearance of the right vertebral artery, which is partially occluded throughout its cervical and intracranial course as discussed above. 3. The [place] right subclavian artery remains occluded at its origin with patent right common carotid artery to subclavian artery bypass graft. Redemonstrated fibrous shelf along the proximal graft resulting in stable approximately 50% stenosis. 4. Again seen sequela of prior left V1 segment vertebral artery dissection with intimal flap. 5. Stable mild (less than 50%) luminal narrowing of the right ICA origin. Atheromatous luminal irregularity with small ulcerative plaque seen along the medial wall of the right carotid bulb. 6. Stable 2.3 mm superomedially projecting saccular aneurysm arising from the right paraclinoid ICA. Attention on follow-up. This critical result was discussed with Dr. David at 11:30 am on 06/06/2024 and it was ascertained that the content and urgency of the report was understood at the time of direct communication.
[2024-05-27] MEDS: iohexoL 350 MG/ML 100 ML INFUS..BTL 70 ML IV (09:15)
== END 2024-05-27 08:25 | disposition home or self-care (01) ==
LOC: HO.CT 08:24
PROVIDERS: Visit Provider Surgery Vascular Surgery
DX: I70.0 Atherosclerosis of aorta (principal)
CPT/HCPCS: 70498; 71275; Q9967

== ENCOUNTER 2024-08-05 08:53 | Outpatient (AMB) | payer MEDICARE, BC, SELFPAY ==
--- NOTE | 2024-08-05 09:02 | A.OFFVIS_ITS ---
Vital Signs 08/05/24 09:03 Height 5 ft 4 in Weight 135 lb BMI 23.2 Intake Visit Reasons: 1 yr follow up CTA Chest , Aorta & Neck 05/27/24 Intake Note: 1 yr follow up s/p CTA Neck 05/27/24 & CTA Chest 05/27/24. Hx of thoracic stent graft in 2017 & carotid subclavian bypass. Pt states she has some cramping in the Left LE, worse at rest and sometimes when ambulating. Buckshot Swage Operator Required: Yes Buckshot Swage Operator Language: Crown Presser Services: Buckshot Swage Operator Present Buckshot Swage Operator Name: Onur [id number] Information Interpreted: non-clinical & clinical Accompanied by: Self / Same As Patient Allergies amlodipine Allergy (Unknown, Verified 08/05/24 09:13) unk chlorpromazine [From Thorazine] Allergy (Unknown, Verified 08/05/24 09:13) Unknown doxepin Allergy (Unknown, Verified 08/05/24 09:13) unk haloperidol [Haldol] Allergy (Unknown, Verified 08/05/24 09:13) unk prochlorperazine [From Compazine] Allergy (Unknown, Verified 08/05/24 09:13) Unknown simvastatin Allergy (Unknown, Verified 08/05/24 09:13) unk thioridazine Allergy (Unknown, Verified 08/05/24 09:13) unk trifluoperazine Allergy (Unknown, Verified 08/05/24 09:13) Unknown valsartan Allergy (Unknown, Verified 08/05/24 09:13) Unknown HPI HPI 1 yr follow up CTA Chest , Aorta & Neck 05/27/24: Details: Very pleasant 73-year-old female presents for routine follow-up regarding her CT angiogram of the neck and chest. She had a prior history of dysphagia loose Gross. She underwent descending thoracic aneurysm repair in 2017. In addition she does have a carotid subclavian bypass. This was all done at [facility]. She reports she is doing fairly well from that. Her only complaint is some mild swelling of the lower extremities. She now presents for routine follow-up. [facility] Medical History Rash and nonspecific skin eruption Nonerosive nonspecific gastritis Dysphagia Overactive bladder Skin tags, multiple acquired Erythema intertrigo Cystocele and rectocele with incomplete uterovaginal prolapse Pelvic organ prolapse quantification stage 2 rectocele Pelvic organ prolapse quantification stage 3 cystocele Urinary incontinence 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 Mother No problems noted. Brother No problems noted. Social History Housing: House Alcohol intake: never Patient Tobacco Use Status: Never used Tobacco e-Cigarette/Vaping Use: Never Used Current occupational status: retired Cognitive needs: No Hearing needs: No Vision needs: No Review of Systems Const All systems reviewed & are unremarkable except as noted in HPI and below Reports no additional complaints ENT Reports Normal hearing present Card Denies chest pain, Denies chest pain at rest, Denies chest pain with activity and Denies pedal edema Resp Denies cough GI Denies abdominal pain Musc Denies abnormal gait, Denies muscle cramps and Denies radiating pain into limb Skin/Breast Denies skin ulcer and Denies wounds Neuro Reports Normal hearing present and Denies abnormal gait Psych Reports no additional complaints Physical Exam Vital Signs: BMI result Body Mass Index 23.2 Const General: cooperative, healthy appearing and comfortable Orientation/consciousness: oriented to person, oriented to place and oriented to time HEENT Head: Yes normal to inspection Neck Neck: Yes normal visual inspection Carotids: no bruits Chest Chest palpation & inspection: normal inspection of the chest Resp Effort & Inspection: normal respiratory effort and able to speak in complete sentences Auscultation: clear to auscultation bilaterally, no crackles, no rales, no rhonchi and no wheezes Cardio Other: Bilateral palpable dorsalis pedis pulses Rate: regular rate Rhythm: regular rhythm Heart sounds: S1 normal heart sound present and S2 normal heart sound present Bruits: no carotid bruits Peripheral pulses: Peripheral pulses 2+ throughout GI Inspection: Yes normal to inspection Skin Wounds: no wounds Hair: normal Neuro General: oriented to person, oriented to place and oriented to time Cranial nerves: Yes CN's II-XII intact bilaterally and Yes Normal hearing present Cognition (Neuro): normal cognition Motor exam (neuro): 5/5 motor strength present throughout Extrem Other: venous exam: +1 edema General: No clubbing, No cyanosis and Yes edema Psych Appearance: grossly normal Mental Status: mental status grossly normal Speech and movement: Normal speech and movement present Results Reviewed Results Reviewed: CT angio of the neck dated 05/27/2024 demonstrates carotid subclavian bypass graft appears to be stable. Small 2.[address] angiogram of the chest dated 05/27/2024 stable thoracic aorta with open tube graft repair. Assessment & Plan Assessment & Plan (1) Thoracic aortic atherosclerosis: Code(s): I70.0 - Atherosclerosis of aorta Category: Medical Plan: Repair appears stable at the current time. We did discuss routine risk factor modification. She will have a surveillance CT in approximately 1 year's time. Please note a longitudinal relationship has been created with the patient and we have been following and surveillance this chronic condition. (2) Kommerell's diverticulum: Comment: s/p carotid-subclavian bypass Code(s): Q25.49 - Other congenital malformations of aorta Category: Medical Plan: Carotid subclavian bypass appears to be stable. She will have a repeat CT scan in approximately 1 year's time. (3) Varicose veins of right lower extremity with inflammation: Code(s): I83.11 - Varicose veins of right lower extremity with inflammation Category: Medical Plan: She does have some mild lower extremity edema. I have taken the liberty of ord ering venous insufficiency testing to rule that out. She will follow up with us after testing. Thank you for allowing us to assist in her care. Orders: Orders US venous duplex LE BI 1 Week I83.11 - Varicose veins of right lower extremity with inflammation Blood Urea Nitrogen 1 Year I70.0 - Atherosclerosis of aorta CT angio chest aorta 1 Year I70.0 - Atherosclerosis of aorta CT angio neck 1 Year Q27.8 - Other specified congenital malformations of peripheral vascular system Creatinine 1 Year I70.0 - Atherosclerosis of aorta Coding Level of Care Code Est Pt Level 4 (06114) Complex EM visit Add On G2211 Diagnoses Thoracic aortic atherosclerosis I70.0 Kommerell's diverticulum Q25.49 Varicose veins of right lower extremity with inflammation I83.11
[2024-08-05 09:03] VITALS: BMI 23.2
== END 2024-08-05 09:30 | disposition home or self-care (01) ==
PROVIDERS: PCP Internal Medicine; Visit Provider Surgery Vascular Surgery
DX: I70.0 Atherosclerosis of aorta (principal); Q25.49 Other congenital malformations of aorta; I83.11 Varicose veins of right lower extremity with inflammation
CPT/HCPCS: 99214; G2211

== ENCOUNTER → 2024-08-05 08:53 | Outpatient (BNVA) | payer MEDICARE, BC, SELFPAY | PROVIDERS: PCP Internal Medicine; Visit Provider Surgery Vascular Surgery | DX: I70.0 Atherosclerosis of aorta (principal); I83.11 Varicose veins of right lower extremity with inflammation; Q25.49 Other congenital malformations of aorta | CPT/HCPCS: 99212 ==

== ENCOUNTER 2024-08-06 11:58 | Outpatient (AMB) | payer MEDICARE, BC, SELFPAY ==
--- NOTE | 2024-08-06 12:01 | MHC.OFFVIS ---
Vital Signs 08/06/24 12:04 Height 5 ft 4 in Weight 141 lb 1.533 oz BMI 24.2 BP 142/60 H Blood Pressure Location Lt brachial Position Sitting Pulse 63 Intake Visit Reasons: Dysphagia, Gastritis Intake Note: Maggy presents in the office as a new patient for dysphagia and Gastritis. CC: She feels like she has some issues with stuff feeling like there is something stuck in her throat. Wether it is liquid or solid she has issues. In [place] she had a COLO and EGD. She also has the reports from there as well. Blind Stitch Machine Operator Required: Yes Blind Stitch Machine Operator Name: [id number] Jonh Allergies amlodipine Allergy (Unknown, Verified 08/06/24 12:20) unk chlorpromazine [From Thorazine] Allergy (Unknown, Verified 08/06/24 12:20) Unknown doxepin Allergy (Unknown, Verified 08/06/24 12:20) unk haloperidol [Haldol] Allergy (Unknown, Verified 08/06/24 12:20) unk prochlorperazine [From Compazine] Allergy (Unknown, Verified 08/06/24 12:20) Unknown simvastatin Allergy (Unknown, Verified 08/06/24 12:20) unk thioridazine Allergy (Unknown, Verified 08/06/24 12:20) unk trifluoperazine Allergy (Unknown, Verified 08/06/24 12:20) Unknown valsartan Allergy (Unknown, Verified 08/06/24 12:20) Unknown HPI Comments Details: This is a 73-year-old female who is here for longstanding intermittent dysphagia to solids. Patient reports having workup done recently in [place]. Recommendation was made for her to pursue motility study. In terms of her symptoms, reports difficulty mostly with certain textures and solids. Often has to iman it with liquids. Barium swallow 02/04/24: narrowing og GEJ with slight proximal esophageal dilation suspicious for esophagitis or achalasia. EGD: Dr Marta Lorenzana in [place] 02/19/24: Esophagitis, suspected achalasia. No H pylori. Normal squamous mucosa in esophagus. [place]: 02/16/24: Hemorrhoids. Diverticulosis. Tortuous colon, used gastroscope. BBPS 6. To note patient also has significant history for vascular aberrancy as well as atherosclerotic disease. She had Kommerell diverticulum due to LASA leading to dysphagia for which she underwent carotid-subclavian bypass as well as resection of the diverticulum. However, the barium esophagogram appears to suggest narrowing at GEJ level. [facility] Medical History Rash and nonspecific skin eruption Nonerosive nonspecific gastritis Dysphagia Overactive bladder Skin tags, multiple acquired Erythema intertrigo Cystocele and rectocele with incomplete uterovaginal prolapse Pelvic organ prolapse quantification stage 2 rectocele Pelvic organ prolapse quantification stage 3 cystocele Urinary incontinence 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 Mother No problems noted. Brother No problems noted. Social History Housing: House Alcohol intake: never Patient Tobacco Use Status: Never used Tobacco e-Cigarette/Vaping Use: Never Used Current occupational status: retired Cognitive needs: No Hearing needs: No Vision needs: No Review of Systems Const All systems reviewed & are unremarkable except as noted in HPI and below Physical Exam Vital Signs: Last Vital Signs Pulse 63 08/06/24 12:04 BP 142/60 H 08/06/24 12:04 BMI result Body Mass Index 24.2 No apparent distress Nonicteric Abdomen soft, nondistended Alert and oriented x3, normal gait Assessment & Plan Assessment & Plan (1) Dysphagia: Code(s): R13.10 - Dysphagia, unspecified Category: Medical Qualifiers: Dysphagia type: unspecified Qualified Code(s): R13.10 - Dysphagia, unspecified (2) Kommerell's diverticulum: Comment: s/p carotid-subclavian bypass Code(s): Q25.49 - Other congenital malformations of aorta Category: Medical (3) Esophageal dilatation: Code(s): K22.89 - Other specified disease of esophagus Category: Medical Plan Discussed with the patient that since images are not available for review, will recommend proceeding with a repeat barium esophagogram. The main differentiation need to be made will be whether the stenosis/narrowing is in the upper esophagus possibly from LASA vs lower esophagus/achalasia (as suggested in the previous esophagogram done in [place]). Based on the results, will likely need follow-up with her vascular surgeon if dysphagia is secondary to KD/LASA. Otherwise, if the XR raises possibility of achalasia, will refer for HREM. Follow-up based on above Orders: Orders [place] barium swallow Today R13.10 - Dysphagia, unspecified Coding Level of Care Code New Pt Level 4 (33614) Complex EM visit Add On G2211 Diagnoses Dysphagia, unspecified type R13.10 Dysphagia type: unspecified Kommerell's diverticulum Q25.49 Esophageal dilatation K22.89
[2024-08-06 12:04] VITALS: BP 142/60; PULSE 63; BMI 24.2
== END 2024-08-06 13:04 | disposition home or self-care (01) ==
PROVIDERS: PCP Internal Medicine; Visit Provider Internal Medicine
DX: R13.10 Dysphagia, unspecified (principal); Q25.49 Other congenital malformations of aorta; K22.89 Other specified disease of esophagus
CPT/HCPCS: 99204; G2211

== ENCOUNTER → 2024-08-06 11:58 | Outpatient (BNVA) | payer MEDICARE, BC, SELFPAY | PROVIDERS: PCP Internal Medicine; Visit Provider Internal Medicine | DX: R13.10 Dysphagia, unspecified (principal); K22.89 Other specified disease of esophagus; Q25.49 Other congenital malformations of aorta | CPT/HCPCS: 99202 ==

== ENCOUNTER 2024-08-12 11:47 | Outpatient (REF) | payer MEDICARE, BC, SELFPAY ==
--- NOTE | ~2024-08-12 | US_ITS ---
EXAMINATION: US VENOUS BILATERAL LOWER EXTREMITIES (REFLUX EXAM) CLINICAL INDICATION: Leg pain and varicose veins. COMPARISON: None TECHNIQUE: Color flow triplex imaging and compression Doppler was performed to evaluate both the deep and the superficial systems bilaterally. To evaluate the superficial system, the examination was performed in the upright position. Color-flow Doppler ultrasound and compression ultrasound were utilized. In addition, maneuvers were utilized to demonstrate reflux. FINDINGS: 1. DEEP VENOUS ULTRASOUND OF THE RIGHT LOWER EXTREMITY: Respiratory variation, normal compression and augmented flow are noted in the right common femoral vein as well as the right popliteal vein and there is no evidence of deep venous thrombosis at these locations. There is no evidence of reflux in the deep system in either the common femoral vein or the popliteal vein. There is no evidence of a Reese's cyst. 2. SUPERFICIAL ULTRASOUND WITH DOPPLER OF RIGHT LOWER EXTREMITY: The right great saphenous vein at the saphenofemoral junction measures 4 mm, at the proximal thigh 5 mm, at the mid thigh 2 mm, above the knee 2 mm, at the knee 2 mm, [id number] 3 mm, midcalf 2 mm and at the ankle measures 2 mm. There is no reflux demonstrated in the right great saphenous vein. Duplicated Right Great Saphenous Vein: There is a 2 mm lateral accessory saphenous without reflux The right small saphenous vein measures 4 mm and reflux from the mid to distal calf with reflux times as high as 2.2 seconds Accessory Vein of Giacomini: None Incompetent Perforators: None Varices Present: None 3. DEEP VENOUS ULTRASOUND OF THE LEFT LOWER EXTREMITY: Respiratory variation, normal compression and augmented flow are noted in the left common femoral vein as well as the left popliteal vein and there is no evidence of deep venous thrombosis at these locations. There is no evidence of reflux in the deep system in either the common femoral vein or the popliteal vein. There is no evidence of a Reese's cyst. 4. SUPERFICIAL ULTRASOUND WITH DOPPLER OF LEFT LOWER EXTREMITY: Left great saphenous vein at the saphenofemoral junction measures 5 mm, at the proximal thigh 5 mm, at the mid thigh 2 mm, above the knee 2 mm, at the knee 3 mm, [id number] 2 mm, midcalf 2 mm and at the ankle measures 2 mm. Segmental reflux at the ankle only is noted of 1.4 seconds Duplicated Left Great Saphenous Vein: There is a 3 mm accessory lateral saphenous vein that does not reflux The left small saphenous vein measures 4 mm and demonstrate 1.1 seconds of reflux in the mid calf . Accessory Vein of Giacomini: None Incompetent Perforators: None. Varices Present: Some varices were visualized in the proximal calf on the left measuring 0.3 cm with greater than 3 seconds of reflux US/US venous insuf bilat IMPRESSION: 1. No evidence of reflux or thrombus in the common femoral veins or popliteal veins bilaterally. 2. The right great saphenous vein is competent. 3. The left great saphenous vein is competent with only a small segment of reflux at the ankle. 4. The right small saphenous vein is incompetent. 5. The left small saphenous vein is incompetent. 6. Refluxing varicosities in the left calf. Electronically signed by: Homer Arciniega MD 08/17/2024 09:43 AM EDT
== END 2024-08-12 11:48 | disposition home or self-care (01) ==
LOC: HO.US 11:47
PROVIDERS: PCP Internal Medicine; Visit Provider Surgery Vascular Surgery
DX: I83.11 Varicose veins of right lower extremity with inflammation (principal)
CPT/HCPCS: 93970

== ENCOUNTER 2024-08-21 08:53 | Outpatient (REF) | payer MEDICARE, BC, SELFPAY ==
[2024-08-21 10:13] LABS: Estimated Average Glucose 151 mg/dL; Hemoglobin A1C 177.7316 umol/L; Hemoglobin A1c % 6.9 % (<6.0); Total Hemoglobin (HGBA1C) 3437.1558 umol/L
[2024-08-21 10:18] LABS: Alanine Aminotransferase 26 U/L (0-31); Anion Gap 10 (12-20); Aspartate Amino Transferase 27 U/L (5-31); Blood Urea Nitrogen 11 mg/dL (9-16); Calcium 9.3 mg/dL (8.4-10.2); Carbon Dioxide 30 mmol/L (22-29); Chloride 103 mmol/L (96-108); Cholesterol 167 mg/dL (<200); Estimated Glomerular Filt Rate > 60; Glucose Fasting 161 mg/dL (60-99); HDL Cholesterol 51 mg/dL (>40); LDL Cholesterol Calculated 96 mg/dL (<100); Potassium 4.4 mmol/L (3.3-5.1); Sodium 139 mmol/L (135-145); Triglycerides 101 mg/dL (<150)
== END 2024-08-21 08:54 | disposition home or self-care (01) ==
LOC: HO.LAB 08:53
PROVIDERS: PCP Internal Medicine; Visit Provider Internal Medicine
DX: E11.9 Type 2 diabetes mellitus without complications (principal); E78.5 Hyperlipidemia, unspecified; K29.70 Gastritis, unspecified, without bleeding
CPT/HCPCS: 36415; 80048; 80061; 83036; 84450; 84460

== ENCOUNTER 2024-08-26 09:17 | Outpatient (AMB) | payer MEDICARE, BC, SELFPAY ==
[2024-08-26 09:30] VITALS: BP 110/70; PULSE 68; O2SAT 98; BMI 24.0
--- NOTE | 2024-08-26 09:30 | A.OFFPC_ITS ---
Vital Signs 08/26/24 09:30 Height 5 ft 4 in Weight 140 lb BMI 24.0 BP 110/70 Blood Pressure Location Lt brachial Position Sitting Pulse 68 Pulse Source Pulse Oximeter Pulse Oximetry (%) 98 Oxygen Delivery Method Room Air Intake Visit Reasons: 3 month follow up Intake Note: Pt is here today for her 3 mo. f/u Allergies amlodipine Allergy (Unknown, Verified 08/26/24 09:58) unk chlorpromazine [From Thorazine] Allergy (Unknown, Verified 08/26/24 09:58) Unknown doxepin Allergy (Unknown, Verified 08/26/24 09:58) unk haloperidol [Haldol] Allergy (Unknown, Verified 08/26/24 09:58) unk prochlorperazine [From Compazine] Allergy (Unknown, Verified 08/26/24 09:58) Unknown simvastatin Allergy (Unknown, Verified 08/26/24 09:58) unk thioridazine Allergy (Unknown, Verified 08/26/24 09:58) unk trifluoperazine Allergy (Unknown, Verified 08/26/24 09:58) Unknown valsartan Allergy (Unknown, Verified 08/26/24 09:58) Unknown Medication List - Last Reconciled 08/26/24 by Bessy Arreguin MD ascorbic acid (vitamin C) mg PO aspirin (Adult Aspirin Regimen) 81 mg PO DAILY biotin 800 mcg PO DAILY calcium mg PO [id number]-[id number] 333-133-8.3 mg tabs PO cane As directed cholecalciferol (vitamin D3) 50 mcg PO DAILY cinnamon bark (Cinnamon) 1,000 mg PO DAILY folic acid 0.4 mg PO DAILY hydrochlorothiazide 12.5 mg PO QAM magnesium oxide 250 mg PO DAILY metoprolol succinate ER 100 mg PO DAILY rosuvastatin 5 mg PO Q2D 3 months Shower Chair As directed vitamin E (dl, acetate) 180 mg PO DAILY Tobacco use date assessed: 08/26/24 Fall risk assessment: No Falls in past year Last assessed Fall Risk: 08/26/24 Dental Screening Dental Screen Date: 08/26/24 Did you have a dental visit in the last 12 months?: Yes Did you have a dental problem in the last 6 months where you did not have access to dental care?: No Was dental information given to patient?: Patient has dentist HPI 3 month follow up HPI Details 73-year-old lady with diabetes mellitus, hypertension and dyslipidemia, here today for follow-up. Blood pressure stable and controlled on metoprolol succinate ER 100 mg once a day and hydrochlorothiazide 12.5 mg in the morning. She had recent fasting labs done which showed hemoglobin A1c little higher than last check at 6.9%, but serum electrolytes, renal function, and fasting lipids are all within normal limits. Complaining of recurrent pain and stiffness in the base of thumbs left more than right, with decreased range of motion due to pain, no improvement with taking Tylenol or applying heat to affected joint. [facility] Medical History Rash and nonspecific skin eruption Nonerosive nonspecific gastritis Dysphagia Overactive bladder Skin tags, multiple acquired Erythema intertrigo Cystocele and rectocele with incomplete uterovaginal prolapse Pelvic organ prolapse quantification stage 2 rectocele Pelvic organ prolapse quantification stage 3 cystocele Urinary incontinence 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 Mother No problems noted. Brother No problems noted. Social History Housing: House Alcohol intake: never Patient Tobacco Use Status: Never used Tobacco e-Cigarette/Vaping Use: Never Used Current occupational status: retired Cognitive needs: No Hearing needs: No Vision needs: No Questionnaire Thrive Questionnaire Date Thrive assessed: 05/15/24 I am a: Patient What is your living situation today?: I have a steady place to live Within the past 12 months, did the food you bought not last and you didn't have the money to get more?: Never true Within the past 12 months, did you worry whether your food would run out before you got money to buy more?: Never true Do you have trouble paying for medicines?: No Do you have trouble getting transportation to medical appointments?: Yes Do you have trouble paying your heating and electricity bill?: No Do you have trouble taking care of your child, family member or friend?: No Do you have trouble with day-to-day activities such as bathing, preparing meals, shopping, managing finances, etc.?: No Are you currently unemployed and looking for a job?: No Are you interested in more education?: No Please select the resources that you would like help with: Transportation Currently or been in a relationship where the following occur: No concerns reported THRIVE Score: 1 ASHLEY-7 AMB Questionnaire ASHLEY-7 Date ASHLEY - 7 assessed: 03/13/23 Source: Developed by Drs. Aníbal Singer, April Jackson, Raimundo Johnston and colleagues, with an educational darian from [employer]. Review of Systems Const Denies fatigue, Denies headache(s), Denies malaise, Denies poor appetite and Denies weakness Eyes Reports no additional complaints ENT Reports Normal hearing present, Denies dizziness, Denies headache(s) and Denies disequilibrium Card Denies chest pain, Denies chest pain at rest, Denies chest pain with activity, Denies pedal edema, Denies irregular heart rhythm, Denies lightheadedness, Denies dyspnea and Denies dyspnea on exertion Resp Denies cough, Denies dyspnea and Denies dyspnea on exertion GI Denies abdominal pain, Denies melena, Denies hematochezia, Denies change in bowel habits, Reports heartburn (Occasional takes omeprazole as needed) and Denies nausea Reports no additional complaints Musc Reports as per HPI, Denies abnormal gait, Denies arthralgias, Denies joint swelling, Denies muscle cramps and Reports stiffness Skin/Breast Denies lesions, Denies rash, Denies skin ulcer and Denies wounds Neuro Reports Normal hearing present, Denies abnormal gait, Denies dizziness, Denies headache(s), Denies focal weakness, Denies paresthesias, Denies disequilibrium and Denies weakness Psych Reports no additional complaints Endo Denies fatigue, Denies polydipsia and Denies polyuria Too/Lymph Denies easy bleeding and Denies easy bruising Aller/Immun Reports no additional complaints Physical exam (Primary Care) Vital Signs: Last Vital Signs Pulse 68 08/26/24 09:30 BP 110/70 08/26/24 09:30 Pulse Ox 98 08/26/24 09:30 Oxygen Delivery Method Room Air 08/26/24 09:30 BMI result Body Mass Index 24.0 Tobacco/Smoking Status: Tobacco use Status Tobacco use date assessed 08/26/24 08/26/24 09:33 Patient Tobacco Use Status Never used Tobacco 08/26/24 09:31 e-Cigarette/Vaping Use Never Used 08/26/24 09:31 Thrive Assessment: Date of Thrive Assessment Date Thrive assessed 05/15/24 08/26/24 09:31 Currently or been in a relationship where the following occur: No concerns reported Const Other: Alert oriented x3, ambulatory with normal gait without assistance HENMT Head: Yes normocephalic Ears: external ears normal General nose exam: Normal external nose present Face and sinus: Yes face symmetric Mouth: Normal oral and palatal mucosa present and moist mucous membranes Eyes General: appearance normal, both eyes and all related structures Pupils: Equal, round and reactive pupils present EOM: EOMs intact bilaterally Neck Neck: Yes full ROM, Yes no lymphadenopathy and Yes supple Resp Auscultation: clear to auscultation bilaterally Cardio Other: S1-S2 present regular rate and rhythm GI Other: Normal bowel sounds, soft, nontender with no mass palpated Neuro General: gait normal, tone normal, moves all extremities and no focal motor deficits Cranial nerves: Yes Equal, round and reactive pupils present and Yes Normal he aring present Gait exam (Neuro): Normal gait present Motor exam (neuro): 5/5 motor strength present throughout Sensory Exam: double simultaneous stimulation for sensation normal Romberg Test: Negative Extrem Other: Tenderness and slight swelling noted on palpation over base of left 1st MCP joint extending for the wrist, with decreased range of motion of the wrist joint and left thumb and index finger due to pain General: Yes full ROM, Yes no joint enlargement, Yes no clubbing, cyanosis or edema, Yes no calf tenderness and Yes normal gait Results Reviewed Results Reviewed: Laboratory Tests 05/13/24 08/21/24 09:14 09:32 Estimat Average Glucose 146 151 Hemoglobin A1c % 6.7 H 6.9 H Name: Maggy Hamilton Age/Sex: 73/F : 1950 Unit#: [id number] Attend Dr: Bessy Arreguin MD Re08/21/24 Status: DEP REF [facility] Disch: SPEC : [id number] NATALIE: 08/21/24 STATUS: COMP REQ : [id number] RECD: 08/21/[address]: Bessy Arreguin MD COMP: 08/21/24 ENTERED: 08/21/[address] [facility] [address]: ORDERED: Met Prof Fast, AST, ALT, Lipid Panel Test Result Flag Reference Sodium 139 135-145 mmol/L Potassium 4.4 3.3-5.1 mmol/L CL 103 96-108 mmol/L CO2 30 H 22-29 mmol/L Gap 10 L 12-20 BUN 11 9-16 mg/dL Creat 0.78 0.5-1.4 mg/dL EGFR > 60 NOTE: For -[place] individuals, multiply the result by 1.210. Chronic Kidney Disease: Estimated GFR < 60 mL/min/1.73m2 Severe Kidney Disease: Estimated GFR < 15 mL/min/1.73m2 FBS 161 H 60-99 mg/dL A fasting glucose of 126 mg/dl or greater on more than one occasion is considered diagnostic of diabetes. CA 9.3 8.4-10.2 mg/dL AST (GOT) 27 5-31 U/L ALT (GPT) 26 0-31 U/L Triglyceride 101 <150 mg/dL Desirable Triglyceride: less than 150 mg/dL Borderline High Triglyceride 150-199 mg/dL High Triglyceride: 200-499 mg/dL Very High Triglyceride: greater than or equal to 5OO mg/dL Cholesterol 167 <200 mg/dL Desirable Cholesterol: less than 200 mg/dL Borderline High Cholesterol: 200-239 mg/dL High Cholesterol: greater than 239 mg/dL LDL Calculated 96 <100 mg/dL Desirable LDL: less than 100 mg/dL Near Optimal/Above Optimal LDL: 110-129 mg/dL Borderline High LDL: 130-159 mg/dL High LDL: 160-189 mg/dL Very High LDL: greater than or equal to 190 mg/dL HDL 51 >40 mg/dL Desirable HDL: greater than 40 mg/dL Note: This HDL assay may give artificially low results in patients with liver disease. Coding Level of Care Code Est Pt Level 4 (92466) Complex EM visit Add On G2211 Diagnoses Tendinitis, de Quervain's M65.4 Dyslipidemia E78.5 Type 2 diabetes mellitus without complication, without long-term current use of insulin E11.9 Essential hypertension I10 Assessment & Plan Assessment & Plan (1) Tendinitis, de Quervain's: Code(s): M65.4 - Radial styloid tenosynovitis [de Quervain] Plan: Trial of resting of joint, may massaged diclofenac gel 1% to affected joint 4 times a day as needed for pain control. If no improvement, will refer to orthopedics (2) Dyslipidemia: Code(s): E78.5 - Hyperlipidemia, unspecified Category: Medical Plan: Latest fasting lipids are within normal limits, continue with rosuvastatin taken 5 mg 1 tablet every other day, reinforced importance of following a low- cholesterol diet and getting regular exercise. Repeat fasting labs in 3 months (3) Type 2 diabetes mellitus without complication, without long-term current use of insulin: Code(s): E11.9 - Type 2 diabetes mellitus without complications Category: Medical Plan: Latest hemoglobin A1c is at 6.9%, which is higher than last check. Stressed importance of following healthy eating habits and getting regular exercise. Will recheck labs again in 3 months (4) Essential hypertension: Code(s): I10 - Essential (primary) hypertension Category: Medical Plan: Blood pressure at goal of less than 130/80. Continue with current medication. Reinforced importance of following a low sodium diet, getting regular exercise, and lowering stress levels. Orders: Orders Hemoglobin A1c 11/15/24 E11.9 - Type 2 diabetes mellitus without complications, E78.5 - Hyperlipidemia, unspecified, I10 - Essential (primary) hypertension, Z78.0 - Asymptomatic menopausal state Aspartate Amino Transferase 11/15/24 E11.9 - Type 2 diabetes mellitus without complications, E78.5 - Hyperlipidemia, unspecified, I10 - Essential (primary) hypertension, Z78.0 - Asymptomatic menopausal state Lipid Panel 11/15/24 E11.9 - Type 2 diabetes mellitus without complications, E78.5 - Hyperlipidemia, unspecified, I10 - Essential (primary) hypertension, Z78.0 - Asymptomatic menopausal state Alanine Aminotransferase 11/15/24 E11.9 - Type 2 diabetes mellitus without complications, E78.5 - Hyperlipidemia, unspecified, I10 - Essential (primary) hypertension, Z78.0 - Asymptomatic menopausal state Microalbumin, Random (w Creat) 11/15/24 E11.9 - Type 2 diabetes mellitus without complications, E78.5 - Hyperlipidemia, unspecified, I10 - Essential (primary) hypertension, Z78.0 - Asymptomatic menopausal state Vitamin D 25-OH Total 11/15/24 E11.9 - Type 2 diabetes mellitus without complications, E78.5 - Hyperlipidemia, unspecified, I10 - Essential (primary) hypertension, Z78.0 - Asymptomatic menopausal state
== END 2024-08-26 10:19 | disposition home or self-care (01) ==
LOC: HO.HMCC 09:17
PROVIDERS: PCP Internal Medicine; Visit Provider Internal Medicine
DX: M65.4 Radial styloid tenosynovitis [de Quervain] (principal); E78.5 Hyperlipidemia, unspecified; E11.9 Type 2 diabetes mellitus without complications; I10 Essential (primary) hypertension

== ENCOUNTER → 2024-08-26 09:17 | Outpatient (BNVA) | payer MEDICARE, BC, SELFPAY | PROVIDERS: PCP Internal Medicine; Visit Provider Internal Medicine | DX: M65.4 Radial styloid tenosynovitis [de Quervain] (principal); E78.5 Hyperlipidemia, unspecified; E11.9 Type 2 diabetes mellitus without complications; I10 Essential (primary) hypertension | CPT/HCPCS: 99212 ==

== ENCOUNTER 2024-10-14 11:32 | Outpatient (AMB) | payer MEDICARE, BC, SELFPAY ==
--- NOTE | 2024-10-14 12:44 | MHC.OFFWIV ---
Intake Vital Signs 10/14/24 12:46 Height 5 ft 4 in Weight 141 lb BMI 24.2 BP 120/78 Blood Pressure Location Lt brachial Position Sitting Pulse 81 Pulse Source Pulse Oximeter Temp 98.1 F Temp Source Oral Pulse Oximetry (%) 98 Intake Visit Reasons: EP-cough, sore throat, body ache, nasal congestion Intake Note: Patient here for sinus congestion, cough, body aches, sore throat, feverish which started about 2 days ago. Patient Tobacco Use Status: Never used Tobacco Allergies amlodipine Allergy (Unknown, Verified 10/14/24 13:06) unk chlorpromazine [From Thorazine] Allergy (Unknown, Verified 10/14/24 13:06) Unknown doxepin Allergy (Unknown, Verified 10/14/24 13:06) unk haloperidol [Haldol] Allergy (Unknown, Verified 10/14/24 13:06) unk prochlorperazine [From Compazine] Allergy (Unknown, Verified 10/14/24 13:06) Unknown simvastatin Allergy (Unknown, Verified 10/14/24 13:06) unk thioridazine Allergy (Unknown, Verified 10/14/24 13:06) unk trifluoperazine Allergy (Unknown, Verified 10/14/24 13:06) Unknown valsartan Allergy (Unknown, Verified 10/14/24 13:06) Unknown Medication List - Last Reconciled 10/14/24 by Paxton Dillard MD ascorbic acid (vitamin C) mg PO aspirin (Adult Aspirin Regimen) 81 mg PO DAILY azithromycin take 500 mg today (day 1), then 250 mg for 4 days (days 2-5) PO biotin 800 mcg PO DAILY calcium mg PO [id number] 333-133-8.3 mg tabs PO cane As directed cholecalciferol (vitamin D3) 50 mcg PO DAILY cinnamon bark (Cinnamon) 1,000 mg PO DAILY folic acid 0.4 mg PO DAILY hydrochlorothiazide 12.5 mg PO QAM magnesium oxide 250 mg PO DAILY metoprolol succinate ER 100 mg PO DAILY prednisone 60 mg (3 x 20 mg) PO DAILY rosuvastatin 5 mg PO Q2D 3 months Shower Chair As directed vitamin E (dl, acetate) 180 mg PO DAILY Do you need a note to return to daycare/school/sports/work: No HPI EP-cough, sore throat, body ache, nasal congestion HPI Details Patient presents for a sick visit. Reporting symptoms of sinus congestion, sore throat and difficulty swallowing. Low-grade fever. No family member is sick. No recent travel. Patient reports symptoms of malaise and fatigue. [facility] Medical History Rash and nonspecific skin eruption Nonerosive nonspecific gastritis Dysphagia Overactive bladder Skin tags, multiple acquired Erythema intertrigo Cystocele and rectocele with incomplete uterovaginal prolapse Pelvic organ prolapse quantification stage 2 rectocele Pelvic organ prolapse quantification stage 3 cystocele Urinary incontinence 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 Mother No problems noted. Brother No problems noted. Social History Housing: House Alcohol intake: never Patient Tobacco Use Status: Never used Tobacco e-Cigarette/Vaping Use: Never Used Current occupational status: retired Cognitive needs: No Hearing needs: No Vision needs: No Physical Exam Vital Signs: Last Vital Signs Temp 98.1 F 10/14/24 12:46 Pulse 81 10/14/24 12:46 BP 120/78 10/14/24 12:46 Pulse Ox 98 10/14/24 12:46 BMI result Body Mass Index 24.2 Const General: cooperative and healthy appearing Nutritional Appearance: well nourished Orientation/consciousness: patient oriented x3 Limitations: no limitations HEENT Head: Yes normal to inspection Eyes General: appearance normal, both eyes and all related structures Neck Neck: Yes normal visual inspection Chest Chest palpation & inspection: normal palpation of entire chest wall Resp Effort & Inspection: normal respiratory effort Neuro General: patient oriented x3 Results AMB Rapid Strep AMB Rapid Strep Negative Last Edit by BERTA Whitney on 10/14/24 12:57 Results Reviewed Results Reviewed: Laboratory Last Values Strep Scn [facility] Negative 10/14/24 12:57 Assessment & Plan Assessment & Plan (1) Upper respiratory tract infection: Code(s): J06.9 - Acute upper respiratory infection, unspecified Plan: Antibiotics ordered. Increase fluid intake. Tylenol for aches and pains. If symptoms worsen, follow-up here for a recheck. Orders: Orders SARS-CoV2/FLU/RSV Today R43.9 - Unspecified disturbances of smell and taste AMB Rapid Strep Screen Today Z13.9 - Encounter for screening, unspecified Medications: New azithromycin take 500 mg today (day 1), then 250 mg for 4 days (days 2-5) PO 6 tabs 0RF prednisone 60 mg (3 x 20 mg) PO DAILY 9 tabs 0RF Coding Level of Care Code Est Pt Level 3 (23288) Diagnoses Upper respiratory tract infection J06.9
[2024-10-14 12:46] VITALS: BP 120/78; PULSE 81; TEMP 36.7; O2SAT 98; BMI 24.2
== END 2024-10-14 13:30 | disposition home or self-care (01) ==
PROVIDERS: PCP Internal Medicine; Visit Provider Internal Medicine
DX: J06.9 Acute upper respiratory infection, unspecified (principal); Z13.9 Encounter for screening, unspecified

== ENCOUNTER → 2024-10-14 11:32 | Outpatient (BNVA) | payer MEDICARE, BC, SELFPAY | PROVIDERS: PCP Internal Medicine; Visit Provider Internal Medicine | DX: J06.9 Acute upper respiratory infection, unspecified (principal) | CPT/HCPCS: 0241U; 87880; 99212 ==

== ENCOUNTER 2024-10-14 16:16 | Outpatient (REF) | payer MEDICARE, BC, SELFPAY ==
[2024-10-14 17:22] LABS: Influenza A PCR NEGATIVE (Negative); Influenza B PCR NEGATIVE (Negative); Resp Syncy Virus RNA Qual PCR POSITIVE (Negative); SARS COV2 PCR INHOUSE NEGATIVE (Negative)
== END 2024-10-14 16:17 | disposition home or self-care (01) ==
LOC: HO.LNP 16:16
PROVIDERS: Visit Provider Internal Medicine
DX: Z13.89 Encounter for screening for other disorder (principal)
CPT/HCPCS: 0241U

== ENCOUNTER 2024-11-03 08:59 | Outpatient (REF) | payer MEDICARE, BC, SELFPAY ==
--- NOTE | ~2024-11-03 | FL_ITS ---
EXAMINATION: XR FLUOROSCOPY UPPER GI WITH AIR CLINICAL INFORMATION: Dysphagia COMPARISON: None TECHNIQUE: Fluoroscopic air contrast upper GI examination was performed utilizing standard techniques with thin and thick barium and effervescent granules. Numerous spot images were obtained. FINDINGS: Lateral cine images of the oropharynx and hypopharynx demonstrate normal swallow mechanism with normal epiglottic inversion and soft palate elevation. There is trace laryngeal penetration with thick barium. No tracheal penetration, glottic or subglottic aspiration identified. No nasopharyngeal reflux present. Hypopharyngeal structures appear normal without evidence of mass or diverticulum. Mild cricopharyngeal achalasia is present. Dual and single contrast images of the esophagus demonstrate a normal caliber and contour. There is a mild granular appearance of the esophageal mucosa, suggestive of esophagitis. No strictures, masses, or ulcerations are identified. Esophageal peristalsis is moderately disorganized. A very small type I hiatal hernia is present. No significant gastroesophageal reflux was seen during the course of the examination and on reflux views. Dual contrast and single contrast images of the stomach demonstrated a normal contour. The gastric rugal folds have a thickened appearance, suggestive of gastritis. There are multiple tiny foci of contrast pooling in the fundus of the stomach that may represent small mucosal erosions. No masses are seen. Contrast freely passed into the gastric antrum and duodenal bulb without delay. Single and air-contrast images of the duodenal bulb demonstrate no abnormality. The duodenal sweep has a normal appearance, course, and mucosal fold appearance. The imaged proximal jejunum has a normal fold pattern and caliber. There is an abnormal appearance/thickening of the ileal folds present. No dilated small bowel loops or strictures are noted. Contrast opacifies the right colon less than 10 minutes. FLUOROSCOPY TIME: 5 minutes 41 seconds Number of Spot Images: 9 Number of Cine: 14 DOSE AREA PRODUCT: 2607 uGy-m2 (microgray-meter squared) FL/FL barium swallow with air IMPRESSION: 1. Trace laryngeal penetration with thick barium. No aspiration was observed. 2. Mild cricopharyngeal achalasia. 3. Mild granular appearance of the esophageal mucosa, suggestive of esophagitis. 4. Moderate esophageal dysmotility. 5. Very small type I hiatal hernia. 6. The gastric rugal folds have a thickened appearance. In addition, there are multiple tiny foci of contrast pooling in the fundus of the stomach. These findings are suggestive of erosive gastritis. Recommend correlation with EGD. 7. Abnormal appearance/thickening of the ileal folds. In addition, there is rapid transit of the barium column, with the right colon opacified in less than 10 minutes. This is suggestive of a malabsorption disorder such as celiac disease. Inflammatory bowel disease cannot be excluded. This procedure was performed by Vicente Wang PA-C, and supervised by Dr. Hairston. Electronically signed by: Tim Hairston MD 11/04/2024 05:21 PM [facility] [place] [facility] [place]
== END 2024-11-03 09:00 | disposition home or self-care (01) ==
LOC: HO.XRAY 08:59
PROVIDERS: PCP Internal Medicine; Visit Provider Internal Medicine
DX: R13.10 Dysphagia, unspecified (principal)
CPT/HCPCS: 74221

== ENCOUNTER → 2024-11-03 09:01 | Outpatient (BNV) | payer MEDICARE, BC, SELFPAY | PROVIDERS: PCP Internal Medicine; Visit Provider Physician Assistant Surgical | DX: R13.10 Dysphagia, unspecified (principal) | CPT/HCPCS: 74246 ==

== ENCOUNTER 2024-11-25 08:11 | Outpatient (REF) | payer MEDICARE, BC, SELFPAY ==
[2024-11-25 09:18] LABS: Estimated Average Glucose 154 mg/dL; Hemoglobin A1C 186.8116 umol/L; Total Hemoglobin (HGBA1C) 3561.1066 umol/L
[2024-11-25 09:36] LABS: Creatinine Urine 8.71 mg/dL; Microalbumin Urine < 5.0 mg/L
[2024-11-25 09:42] LABS: Alanine Aminotransferase 24 U/L (0-31); Aspartate Amino Transferase 30 U/L (5-31); Cholesterol 206 mg/dL (<200); HDL Cholesterol 56 mg/dL (>40); LDL Cholesterol Calculated 135 mg/dL (<100); Triglycerides 79 mg/dL (<150)
== END 2024-11-25 08:12 | disposition home or self-care (01) ==
LOC: HO.LAB 08:11
PROVIDERS: PCP Internal Medicine; Visit Provider Internal Medicine
DX: E11.9 Type 2 diabetes mellitus without complications (principal); E78.5 Hyperlipidemia, unspecified; I10 Essential (primary) hypertension; Z78.0 Asymptomatic menopausal state
CPT/HCPCS: 36415; 80061; 82043; 82306; 82570; 83036; 84450; 84460

== ENCOUNTER 2024-12-01 08:46 | Outpatient (AMB) | payer MEDICARE, BC, SELFPAY ==
[2024-12-01 09:47] VITALS: BP 140/80; PULSE 65; RESP 16; TEMP 36.7; O2SAT 99; BMI 24.4
--- NOTE | 2024-12-01 09:47 | MHC.PC.OV ---
Vital Signs 12/01/24 09:47 Height 5 ft 4 in Weight 142 lb BMI 24.4 BP 140/80 H Blood Pressure Location Lt brachial Position Sitting Respiration 16 Pulse 65 Pulse Source Pulse Oximeter Temp 98.1 F Temp Source Oral Pulse Oximetry (%) 99 Oxygen Delivery Method Room Air Intake Visit Reasons: 4m follow up Intake Note: Pt is here today for her 4mo. f/u Enrollment Representative Required: Yes Enrollment Representative Name: sol Information Interpreted: clinical only Allergies amlodipine Allergy (Unknown, Verified 12/01/24 09:49) unk chlorpromazine [From Thorazine] Allergy (Unknown, Verified 12/01/24 09:49) Unknown doxepin Allergy (Unknown, Verified 12/01/24 09:49) unk haloperidol [Haldol] Allergy (Unknown, Verified 12/01/24 09:49) unk prochlorperazine [From Compazine] Allergy (Unknown, Verified 12/01/24 09:49) Unknown simvastatin Allergy (Unknown, Verified 12/01/24 09:49) unk thioridazine Allergy (Unknown, Verified 12/01/24 09:49) unk trifluoperazine Allergy (Unknown, Verified 12/01/24 09:49) Unknown lisinopril Adverse Reaction (Severe, Verified 12/01/24 10:28) cough Medication List - Last Reconciled 12/01/24 by Bessy Arreguin MD ascorbic acid (vitamin C) mg PO aspirin (Adult Aspirin Regimen) 81 mg PO DAILY calcium mg PO [id number] mg tabs PO cane As directed cholecalciferol (vitamin D3) 50 mcg PO DAILY cinnamon bark (Cinnamon) 1,000 mg PO DAILY folic acid 0.4 mg PO DAILY hydrochlorothiazide 12.5 mg PO QAM magnesium oxide 250 mg PO DAILY metoprolol succinate ER 100 mg PO DAILY rosuvastatin 5 mg PO Q2D 3 months Shower Chair As directed vitamin E (dl, acetate) 180 mg PO DAILY Tobacco use date assessed: 12/01/24 Fall risk assessment: No Falls in past year Last assessed Fall Risk: 12/01/24 Dental Screening Dental Screen Date: 12/01/24 Did you have a dental visit in the last 12 months?: Yes Did you have a dental problem in the last 6 months where you did not have access to dental care?: No Was dental information given to patient?: Patient has dentist HPI 4m follow up HPI Details - The patient is a 73-year-old female with diabetes mellitus here for her follow-up - Recent labs showed poor control in diabetes mellitus with latest hemoglobin A1c at 7%. - Hypercholesterolemia is noted with recent cholesterol panel showing elevated total and LDL cholesterol, currently on rosuvastatin - Current management for hypertension includes hydrochlorothiazide and a recommended change to valsartan due to adverse reaction to lisinopril. - Additional health concern includes an esophageal motility disorder causing swallowing difficulties, seen on previous endoscopic investigations . [facility] Medical History Rash and nonspecific skin eruption Nonerosive nonspecific gastritis Dysphagia Overactive bladder Skin tags, multiple acquired Erythema intertrigo Cystocele and rectocele with incomplete uterovaginal prolapse Pelvic organ prolapse quantification stage 2 rectocele Pelvic organ prolapse quantification stage 3 cystocele Urinary incontinence 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 Mother No problems noted. Brother No problems noted. Social History Housing: House Alcohol intake: never Patient Tobacco Use Status: Never used Tobacco e-Cigarette/Vaping Use: Never Used Current occupational status: retired Cognitive needs: No Hearing needs: No Vision needs: No Questionnaire PHQ-9 Over the last 2 weeks, how often have you been bothered by any of the following problems? 1. Little interest or pleasure in doing things: not at all 2. Feeling down, depressed, or hopeless: not at all 3. Trouble falling or staying asleep, or sleeping too much: not at all 4. Feeling tired or having little energy: not at all 5. Poor appetite or overeating: not at all 6. Feeling bad about yourself - or that you are a failure or have let yourself or your family down: not at all 7. Trouble concentrating on things, such as reading the newspaper or watching television: not at all 8. Moving or speaking so slowly that other people could have noticed. Or the opposite - being so fidgety or restless that you have been moving around a lot more than usual: not at all 9. Thoughts that you would be better off or of hurting yourself in some way: not at all Total score: 0 Depression Screening Interpretation: Negative Depression Screening Done: Yes 68870 - PHQ-9 Billing: Yes Source: Developed by Drs. Aníbal Singer, April Jackson, Raimundo Johnston and colleagues, with an educational darian from [employer]. Thrive Questionnaire Date Thrive assessed: 12/01/24 I am a: Patient What is your living situation today?: I have a steady place to live Within the past 12 months, did the food you bought not last and you didn't have the money to get more?: Never true Within the past 12 months, did you worry whether your food would run out before you got money to buy more?: Never true Do you have trouble paying for medicines?: No Do you have trouble getting transportation to medical appointments?: Yes Do you have trouble paying your heating and electricity bill?: No Do you have trouble taking care of your child, family member or friend?: No Do you have trouble with day-to-day activities such as bathing, preparing meals, shopping, managing finances, etc.?: No Are you currently unemployed and looking for a job?: No Are you interested in more education?: No Please select the resources that you would like help with: Transportation Currently or been in a relationship where the following occur: No concerns reported THRIVE Score: 1 AUDIT C Alcohol Use Questionnaire (AUDIT-C) 1. How often do you have a drink containing alcohol?: Never Total Score: 0 ASHLEY-7 AMB Questionnaire ASHLEY-7 Date ASHLEY - 7 assessed: 12/01/24 Feeling nervous, anxious, or on edge: 0 = Not at all Not being able to stop or control worryin = Not at all Worrying too much about different things: 0 = Not at all Trouble relaxin = Not at all Being so restless that it is hard to sit still: 0 = Not at all Becoming easily annoyed or irritable: 0 = Not at all Feeling afraid as if something awful might happen: 0 = Not at all Total ASHLEY-7 score (0-4 normal; 5-9 mild; 10-14 moderate; 15-21 severe): 0 Source: Developed by Drs. Aníbal Singer, April Jackson, Raimundo Johnston and colleagues, with an educational darian from [employer]. ASHLEY-7 Assessment Billing ASHLEY-7 Assessment Tool: ASHLEY-7 Assessment 46654 Review of Systems Const Denies fatigue, Denies headache(s), Denies malaise, Denies poor appetite and Denies weakness Eyes Reports no additional complaints ENT Reports Normal hearing present, Denies dizziness, Denies headache(s) and Denies disequilibrium Card Denies chest pain, Denies chest pain at rest, Denies chest pain with activity, Denies pedal edema, Denies irregular heart rhythm, Denies lightheadedness, Denies dyspnea and Denies dyspnea on exertion Resp Denies cough, Denies dyspnea and Denies dyspnea on exertion GI Denies abdominal pain, Denies melena, Denies hematochezia, Denies change in bowel habits, Reports heartburn (Occasional takes omeprazole as needed) and Denies nausea Reports no additional complaints Musc Reports as per HPI, Denies abnormal gait, Denies arthralgias, Denies joint swelling, Denies muscle cramps and Reports stiffness Skin/Breast Denies lesions, Denies rash, Denies skin ulcer and Denies wounds Neuro Reports Normal hearing present, Denies abnormal gait, Denies dizziness, Denies headache(s), Denies focal weakness, Denies paresthesias, Denies disequilibrium and Denies weakness Psych Reports no additional complaints Endo Denies fatigue, Denies polydipsia and Denies polyuria Too/Lymph Denies easy bleeding and Denies easy bruising Aller/Immun Reports no additional complaints Physical exam (Primary Care) Vital Signs: Last Vital Signs Temp 98.1 F 12/01/24 09:47 Pulse 65 12/01/24 09:47 Resp 16 12/01/24 09:47 BP 140/80 H 12/01/24 09:47 Pulse Ox 99 12/01/24 09:47 Oxygen Delivery Method Room Air 12/01/24 09:47 BMI result Body Mass Index 24.4 Tobacco/Smoking Status: Tobacco use Status Tobacco use date assessed 12/01/24 12/01/24 09:53 Patient Tobacco Use Status Never used Tobacco 12/01/24 09:51 e-Cigarette/Vaping Use Never Used 12/01/24 09:51 PHQ-9: PHQ-9 Score PHQ-9: Total score 0 12/01/24 10:07 Depression Screening Interpretation: Negative Thrive Assessment: Date of Thrive Assessment Date Thrive assessed 12/01/24 12/01/24 09:53 Currently or been in a relationship where the following occur: No concerns reported Const Other: Alert oriented x3, ambulatory with normal gait without assistance HENMT Head: Yes normocephalic Ears: external ears normal General nose exam: Normal external nose present Face and sinus: Yes face symmetric Mouth: Normal oral and palatal mucosa present and moist mucous membranes Eyes General: appearance normal, both eyes and all related structures Pupils: Equal, round and reactive pupils present EOM: EOMs intact bilaterally Neck Neck: Yes full ROM, Yes no lymphadenopathy and Yes supple Resp Auscultation: clear to auscultation bilaterally Cardio Other: S1-S2 present regular rate and rhythm GI Other: Normal bowel sounds, soft, nontender with no mass palpated Neuro General: gait normal, tone normal, moves all extremities and no focal motor deficits Cranial nerves: Yes Equal, round and reactive pupils present and Yes Normal hearing present Gait exam (Neuro): Normal gait present Motor exam (neuro): 5/5 motor strength present throughout Sensory Exam: double simultaneous stimulation for sensation normal Romberg Test: Negative Extrem General: Yes full ROM, Yes no joint enlargement, Yes no clubbing, cyanosis or edema, Yes no calf tenderness and Yes normal gait Results Reviewed Results Reviewed: Laboratory Tests 08/21/24 11/25/24 09:32 08:36 Estimat Average Glucose 151 154 Hemoglobin A1c % 6.9 H 7.0 H Name: Maggy Hamilton Age/Sex: 73/F : 1950 Unit#: [id number] Attend Dr: Bessy Arreguin MD Re11/25/24 Status: DEP REF Location: .LAB Disch: SPEC : [id number] NATALIE: 11/25/24 STATUS: COMP REQ : [id number] RECD: 11/25/[address]: Bessy Arreguin MD COMP: 11/25/24 ENTERED: 11/25/24 [facility]: ORDERED: AST, ALT, Lipid Panel, Vitamin D 25-OH Test Result Flag Reference AST (GOT) 30 5-31 U/L ALT (GPT) 24 0-31 U/L Triglyceride 79 <150 mg/dL Desirable Triglyceride: less than 150 mg/dL Borderline High Triglyceride 150-199 mg/dL High Triglyceride: 200-499 mg/dL Very High Triglyceride: greater than or equal to 5OO mg/dL Cholesterol 206 H <200 mg/dL Desirable Cholesterol: less than 200 mg/dL Borderline High Cholesterol: 200-239 mg/dL High Cholesterol: greater than 239 mg/dL LDL Calculated 135 H <100 mg/dL Desirable LDL: less than 100 mg/dL Near Optimal/Above Optimal LDL: 110-129 mg/dL Borderline High LDL: 130-159 mg/dL High LDL: 160-189 mg/dL Very High LDL: greater than or equal to 190 mg/dL HDL 56 >40 mg/dL Desirable HDL: greater than 40 mg/dL Note: This HDL assay may give artificially low results in patients with liver disease. Vit D 25-OH Tot 41.0 >30 ng/mL Health Based Reference Values* < 20 ng/mL Deficient 20-30 ng/mL Insufficient > 30 ng/mL Sufficient Laboratory Tests 11/25/24 08:27 Urine Creatinine 8.71 Urine Microalbumin < 5.0 Microalb/Creat Ratio TNP Coding Level of Care Code Est Pt Level 4 (22800) Complex EM visit Add On G2211 Diagnoses Dyslipidemia E78.5 Type 2 diabetes mellitus without complication, without long-term current use of insulin E11.9 Essential hypertension I10 Additional Codes PHQ-9 - 75385 - PHQ-9 Billing: Yes ([id number]) ASHLEY-7 Assessment Billing - ASHLEY-7 Assessment Tool: ASHLEY-7 Assessment 25306 ([id number]) Assessment & Plan Assessment & Plan (1) Dyslipidemia: Code(s): E78.5 - Hyperlipidemia, unspecified Category: Medical Plan: Reviewed recent fasting lipid profile with patient with LDL cholesterol not at goal of less than 100 mg/dL. . Continue rosuvastatin but increased dose to 5 mg once a day , in addition to adherence to low-cholesterol diet and regular exercise, at least 30 minutes 3 to 4 times a week. Advised patient to make healthy food choices, eat more fruits, vegetables, whole grains, wild caught fish and low-fat dairy. Limit amount of meat and fried or fatty food products, as well as processed foods and fast foods. Follow-up scheduled with repeat fasting lipid panel in 6 months (2) Type 2 diabetes mellitus without complication, without long-term current use of insulin: Code(s): E11.9 - Type 2 diabetes mellitus without complications Category: Medical Plan: Diabetes control slipping, with hemoglobin A1c now at 7%. Reinforced importance of adhering to healthy eating habits and getting regular exercise . Patient does not want to start any medication for diabetes at present time, repeat an hemoglobin A1c and electrolytes in six-months. Patient advised that if still not at goal will need to start medication to treat diabetes. (3) Essential hypertension: Code(s): I10 - Essential (primary) hypertension Category: Medical Plan: Blood pressure not at goal of less than 130/80. Continue with current dose of hydrochlorothiazide but added valsartan 40 mg to be taken once a day in a.m... Reinforced importance of following a low sodium diet, getting regular exercise, and lowering stress levels. Orders: Orders Aspartate Amino Transferase 04/28/25 E11.9 - Type 2 diabetes mellitus without complications, E78.5 - Hyperlipidemia, unspecified, I10 - Essential (primary) hypertension Lipid Panel 04/28/25 E11.9 - Type 2 diabetes mellitus without complications, E78.5 - Hyperlipidemia, unspecified, I10 - Essential (primary) hypertension Basic Metabolic Panel Fasting 04/28/25 E11.9 - Type 2 diabetes mellitus without complications, E78.5 - Hyperlipidemia, unspecified, I10 - Essential (primary) hypertension Alanine Aminotransferase 04/28/25 E11.9 - Type 2 diabetes mellitus without complications, E78.5 - Hyperlipidemia, unspecified, I10 - Essential (primary) hypertension Hemoglobin A1c 04/28/25 E11.9 - Type 2 diabetes mellitus without complications, E78.5 - Hyperlipidemia, unspecified, I10 - Essential (primary) hypertension Vitamin D 25-OH Total 04/28/25 E11.9 - Type 2 diabetes mellitus without complications, E78.5 - Hyperlipidemia, unspecified, I10 - Essential (primary) hypertension Medications: New valsartan 40 mg PO DAILY 90 tabs 1RF valsartan 40 mg PO DAILY 90 tabs 1RF Changed From rosuvastatin 5 mg PO Q2D 3 months 45 tabs 2RF E11.9 - Type 2 diabetes mellitus without complications, E78.5 - Hyperlipidemia, unspecified To rosuvastatin 5 mg PO DAILY 3 months 90 tabs 3RF E11.9 - Type 2 diabetes mellitus without complications, E78.5 - Hyperlipidemia, unspecified Refilled rosuvastatin 5 mg PO DAILY 90 tabs 3RF 3 months E11.9 - Type 2 diabetes mellitus without complications, E78.5 - Hyperlipidemia, unspecified
== END 2024-12-01 11:03 | disposition home or self-care (01) ==
PROVIDERS: PCP Internal Medicine; Visit Provider Internal Medicine
DX: E78.5 Hyperlipidemia, unspecified (principal); E11.9 Type 2 diabetes mellitus without complications; I10 Essential (primary) hypertension

== ENCOUNTER → 2024-12-01 08:46 | Outpatient (BNVA) | payer MEDICARE, BC, SELFPAY | PROVIDERS: PCP Internal Medicine; Visit Provider Internal Medicine | DX: E78.5 Hyperlipidemia, unspecified (principal); E11.9 Type 2 diabetes mellitus without complications; I10 Essential (primary) hypertension | CPT/HCPCS: 96127; 99212 ==

== ENCOUNTER 2025-03-17 13:23 | Outpatient (AMB) | payer MEDICARE, BC, SELFPAY ==
[2025-03-17 13:39] VITALS: BMI 24.4
--- NOTE | 2025-03-17 13:39 | A.OFFVIS_ITS ---
Vital Signs 03/17/25 13:39 Height 5 ft 4 in Weight 142 lb BMI 24.4 Intake Visit Reasons: follow up on LE pain Intake Note: Pt states that she has pain on Left Lumbar/ back pain s/p surgery in [place]. Pt states Right carotid subclavian bypass & decending thoracic aorta in 02/2017. Pt states she gets nausea and constant pain and gas like after the initial surgery. Hot Wire Glass Tube Cutter Required: Yes Hot Wire Glass Tube Cutter Language: General Warehouse Associate Services: Hot Wire Glass Tube Cutter Present Hot Wire Glass Tube Cutter Name: Geraldo [id number] Information Interpreted: non-clinical & clinical Accompanied by: Self / Same As Patient Allergies amlodipine Allergy (Unknown, Verified 03/17/25 13:48) unk chlorpromazine [From Thorazine] Allergy (Unknown, Verified 03/17/25 13:48) Unknown doxepin Allergy (Unknown, Verified 03/17/25 13:48) unk haloperidol [Haldol] Allergy (Unknown, Verified 03/17/25 13:48) unk prochlorperazine [From Compazine] Allergy (Unknown, Verified 03/17/25 13:48) Unknown simvastatin Allergy (Unknown, Verified 03/17/25 13:48) unk thioridazine Allergy (Unknown, Verified 03/17/25 13:48) unk trifluoperazine Allergy (Unknown, Verified 03/17/25 13:48) Unknown lisinopril Adverse Reaction (Severe, Verified 03/17/25 13:48) cough HPI HPI follow up on LE pain: Details: Maggy is presenting today originally for lower extremity pain. She is Citizen Of [place] speaking only and we utilized the video spanish medical interpreter. She states she is coming in today not for lower extremity pain but for pain and discomfort in the upper back/left shoulder area, where she had surgery before. She is vague about how long/when the symptoms started but she states for awhile. She is able to point to the area of her shoulder and left upper back where it hurts, but it is not all the time. She had the surgery in [place], it was for a carotid subclavian bypass and repair of a descending thoracic aneurysm. She has not called [place] yet due to these symptoms. The surgeries were in 2016. She states she has been coming here for follow ups every year; she is due in July for a follow up CT scan. She states she would like imaging sooner and to be seen for this pain. She states she is having increased gas, nausea, and left upper back and shoulder pain. She denies any CP, diff breathing, or shortness of breath. She denies any vomiting or abd pain. She denies any jaw pain, headaches, or dizziness. [facility] Medical History Rash and nonspecific skin eruption Nonerosive nonspecific gastritis Dysphagia Overactive bladder Skin tags, multiple acquired Erythema intertrigo Cystocele and rectocele with incomplete uterovaginal prolapse Pelvic organ prolapse quantification stage 2 rectocele Pelvic organ prolapse quantification stage 3 cystocele Urinary incontinence 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 Mother No problems noted. Brother No problems noted. Social History Housing: House Alcohol intake: never Patient Tobacco Use Status: Never used Tobacco e-Cigarette/Vaping Use: Never Used Current occupational status: retired Cognitive needs: No Hearing needs: No Vision needs: No Review of Systems Const Reports as per HPI and Denies weakness ENT Reports Normal hearing present and Denies dizziness Card Reports as per HPI, Denies chest pain, Denies chest pain at rest, Denies chest pain with activity, Denies dyspnea and Denies dyspnea on exertion Resp Reports as per HPI, Denies cough, Denies dyspnea and Denies dyspnea on exertion GI Reports as per HPI, Denies abdominal pain, Denies nausea and Denies vomiting Musc Denies numbness Skin/Breast Reports as per HPI, Denies erythema and Denies wounds Neuro Reports Normal hearing present, Denies dizziness, Denies numbness, Denies Sensory deficit (Neuro) and Denies weakness Psych Reports no additional complaints Endo Reports no additional complaints Physical Exam Vital Signs: BMI result Body Mass Index 24.4 Const General: healthy appearing and no acute distress Orientation/consciousness: patient oriented x3 HEENT Head: Yes normal to inspection Ears: hearing grossly normal bilaterally Mouth: Normal oral and palatal mucosa present Neck Other: Upper left back/shoulder: no wounds/injuries noted. Not painful to palpation. Resp Effort & Inspection: normal respiratory effort and able to speak in complete sentences Auscultation: clear to auscultation bilaterally Cardio Jugular venous distension: no JVD Rate: regular rate Rhythm: regular rhythm Heart sounds: S1 normal heart sound present and S2 normal heart sound present Bruits: no abdominal aortic bruits, no carotid bruits, no femoral bruits and no renal bruits Peripheral pulses: Peripheral pulses 2+ throughout GI Inspection: Yes normal to inspection Palpation (GI): No Abdominal aortic bruit present Skin General skin exam: no rashes or lesions noted Wounds: no wounds Hair: normal Neuro General: patient oriented x3 Cranial nerves: Yes Normal hearing present Cognition (Neuro): normal cognition Gait exam (Neuro): Normal gait present Motor exam (neuro): 5/5 motor strength present throughout Sensory Exam: No Sensory deficit (Neuro) Extrem General: Yes normal to inspection, Yes full ROM, Yes capillary refill normal and Yes normal gait Assessment & Plan Assessment & Plan (1) Kommerell's diverticulum: Comment: s/p carotid-subclavian bypass Code(s): Q25.49 - Other congenital malformations of aorta Category: Medical Plan: Maggy is presenting today for concerns of similar symptoms prior to her c arotid subclavian bypass and descending thoracic aorta aneurysm in 2017. She states these symptoms have been going on for awhile. She has not reached out to her surgeons in [place] yet; she states she would like to have imaging done first here before going to [place]. I had a lengthy discussion with her that we could try to order imaging here; however, it is extremely important to reach out to them because if there are any issues/concerning findings on the imaging, we cannot fix it here. I also discussed that if she was very concerned she could go to the ER as well. I discussed with her that she is not due for a surveillance CTA until Jul and the insurance company may not cover it; but she stated that she would like it ordered anyway. I discussed the importance to call [place] and be seen there as soon as possible. If the symptoms continue, we discussed going to the ER. (2) Thoracic aortic atherosclerosis: Code(s): I70.0 - Atherosclerosis of aorta Category: Medical Plan: Maggy is presenting today for concerns of symptoms she previously had, prior to the repair surgery in 2017; she has not reached out to the surgeons/doctors that she saw in [place]. I discussed with her that she should reach out to them and we will try to get a CTA ordered as well. I did discuss that if the symptoms persist, she should go to the ER. I discussed that if there is anything found on the CTA, she will still need to follow up with [place], we do not perform these types of surgeries/corrections here. She states she will reach out to them. We will have her follow up with us after the results of the CTA. I did discuss with her that the CTAs may not be covered due to being early on the surveillance studies; she is aware of this. Orders: Orders CT angio neck 1 Week Q25.49 - Other congenital malformations of aorta CT angio chest aorta 1 Week I70.0 - Atherosclerosis of aorta Coding Level of Care Code Est Pt Level 4 (54182) Diagnoses Kommerell's diverticulum Q25.49 Thoracic aortic atherosclerosis I70.0
== END 2025-03-17 14:38 | disposition home or self-care (01) ==
LOC: HO.HVS 13:23
PROVIDERS: PCP Internal Medicine; Visit Provider Physician Assistant Surgical
DX: Q25.49 Other congenital malformations of aorta (principal); I70.0 Atherosclerosis of aorta
CPT/HCPCS: 99214

== ENCOUNTER → 2025-03-17 13:23 | Outpatient (BNVA) | payer MEDICARE, BC, SELFPAY | PROVIDERS: PCP Internal Medicine; Visit Provider Physician Assistant Surgical | DX: Q25.49 Other congenital malformations of aorta (principal); I70.0 Atherosclerosis of aorta | CPT/HCPCS: 99212 ==

== ENCOUNTER 2025-04-28 08:08 | Outpatient (REF) | payer MEDICARE, BC, SELFPAY ==
--- NOTE | ~2025-04-28 | CT_ITS ---
EXAMINATION: CT ANGIOGRAM CHEST/AORTA. CLINICAL INFORMATION: Atherosclerosis of thoracic aorta COMPARISON: None available. TECHNIQUE: 0.6 mm thin axial and reformatted 3 mm thin triplanar images of chest were obtained following rapid IV 70 mL [id number].. This CT examination was performed using dose optimization techniques as appropriate, variously including the following: *Automated exposure control *Adjustment of mA and/or kV according to patient size (this includes techniques or standardized protocols for targeted exams where dose is matched to indication/reason for exam; i.e. extremities or head) *Use of iterative reconstruction technique DLP 304 FINDINGS: VASCULAR: Ascending thoracic aorta is of normal caliber without aneurysm or dissection. There is 2 vessel branching of the aortic arch. There is a small diverticulum along the inner aortic arch on axial image 122/5 and coronal image 36/8 but no narrowing seen. Question residual PDA changes. There is mild atherosclerosis and calcification of entire descending thoracic aorta with mural and serosal. There is mild ectasia of left common carotid artery. The it bifurcates normally into internal and axial carotid arteries without any atherosclerosis or narrowing. The internal carotid arteries patent and is entire course throughout the neck. The right common carotid artery is patent with normal bifurcation into internal and adnexal carotid artery. The left carotid artery is patent in its entire course to the skull base. Proximal left vertebral artery is tortuous but patent. The right vertebral artery is not visualized and likely traumatic. Both subclavian arteries are patent. The pulmonary artery is of normal caliber and patent. Nonvascular: Visualized intracranial brain parenchyma and the neck soft tissues are normal. The paranasal sinuses and the mastoid air cells are well-aerated. The lungs are well-expanded with mild atelectatic changes in left upper lobe and dependent atelectasis in both lower lobe. No pulmonary nodule or mass seen. Process. No pulmonary nodule, mass or consolidation seen. Heart size is normal. No pericardial effusion seen. No pleural effusion or thickening. No abnormal size mediastinal lymph nodes or mass seen. Central trachea and the bronchi are widely patent. Thyroid lobes are symmetrical and normal. No echogenic mass or lymph nodes. The chest wall is unremarkable. No gross bony abnormality seen. There is mild ventral spondylosis lower dorsal spine. No aggressive lytic or sclerotic process seen. Visualized liver, spleen, pancreas, gallbladder and bilateral adrenal glands are grossly unremarkable. CT/CT angio chest aorta IMPRESSION: Unremarkable ascending aorta. Bovine appearing thoracic arch. Mild mural and serosal thickening with atherosclerosis involving the posterior arch and the entire thoracic aorta. There is irregularity and small diverticulum-like appearance along undersurface of the arch as described above. Question old PDA or atherosclerosis. Mild atelectatic changes in left upper lobe and both lower lobes. Fleischner guidelines were followed. Electronically signed by: Tim Hairston MD 04/29/2025 11:42 AM EDT
[2025-04-28 09:09] LABS: Hemoglobin A1C 158.9598 umol/L; Total Hemoglobin (HGBA1C) 3503.9752 umol/L
[2025-04-28 09:40] LABS: Alanine Aminotransferase 26 U/L (0-31); Anion Gap 11 (12-20); Aspartate Amino Transferase 27 U/L (5-31); Blood Urea Nitrogen 14 mg/dL (9-16); Calcium 9.1 mg/dL (8.4-10.2); Carbon Dioxide 28 mmol/L (22-29); Chloride 106 mmol/L (96-108); Cholesterol 209 mg/dL (<200); Estimated Glomerular Filt Rate > 60; HDL Cholesterol 49 mg/dL (>40); Potassium 3.9 mmol/L (3.3-5.1); Sodium 141 mmol/L (135-145); Triglycerides 137 mg/dL (<150)
[2025-04-28] MEDS: iohexoL 350 MG/ML 100 ML INFUS..BTL IV (13:52)
== END 2025-04-28 08:09 | disposition home or self-care (01) ==
LOC: HO.CT 08:08
PROVIDERS: Absent Provider Internal Medicine; PCP Internal Medicine; Visit Provider Physician Assistant Surgical
DX: I10 Essential (primary) hypertension (principal); E11.9 Type 2 diabetes mellitus without complications; E78.5 Hyperlipidemia, unspecified; I70.0 Atherosclerosis of aorta; Q25.49 Other congenital malformations of aorta
CPT/HCPCS: 36415; 70498; 71275; 80048; 80061; 82306; 83036; 84450; 84460; Q9967

== ENCOUNTER → 2025-04-28 11:59 | Outpatient (BNV) | payer MEDICARE, BC, SELFPAY | PROVIDERS: Absent Provider Internal Medicine; PCP Internal Medicine; Visit Provider Radiology Diagnostic Radiology | DX: I70.0 Atherosclerosis of aorta (principal) | CPT/HCPCS: 70498 ==

== ENCOUNTER 2025-05-04 07:48 | Outpatient (AMB) | payer MEDICARE, BC, SELFPAY ==
--- NOTE | 2025-05-04 07:52 | A.OFFPC_ITS ---
Vital Signs 05/04/25 08:04 Height 5 ft 4 in Weight 135 lb BMI 23.2 BP 120/78 Blood Pressure Location Lt brachial Position Sitting Respiration 16 Pulse 62 Pulse Source Pulse Oximeter Temp 98.0 F Temp Source Oral Pulse Oximetry (%) 98 Oxygen Delivery Method Room Air Intake Visit Reasons: 6 months f/up Intake Note: Pt is here today for her 6mo. f/u Aquatic Facility Manager Required: Yes Aquatic Facility Manager Name: Avinash Briceno ID [id number] Information Interpreted: clinical only Allergies amlodipine Allergy (Unknown, Verified 05/04/25 08:24) unk chlorpromazine (From Thorazine) Allergy (Unknown, Verified 05/04/25 08:24) Unknown doxepin Allergy (Unknown, Verified 05/04/25 08:24) unk haloperidol (Haldol) Allergy (Unknown, Verified 05/04/25 08:24) unk prochlorperazine (From Compazine) Allergy (Unknown, Verified 05/04/25 08:24) Unknown simvastatin Allergy (Unknown, Verified 05/04/25 08:24) unk thioridazine Allergy (Unknown, Verified 05/04/25 08:24) unk trifluoperazine Allergy (Unknown, Verified 05/04/25 08:24) Unknown lisinopril Adverse Reaction (Severe, Verified 05/04/25 08:24) cough Medication List - Last Reconciled 05/04/25 by Bessy Arreguin MD ascorbic acid (vitamin C) mg PO aspirin (Adult Aspirin Regimen) 81 mg PO DAILY calcium mg PO hotoeiv-ktoazrzag-ibbw 333-133-8.3 mg tabs PO cane As directed cholecalciferol (vitamin D3) 50 mcg PO DAILY cinnamon bark (Cinnamon) 1,000 mg PO DAILY folic acid 0.4 mg PO DAILY hydrochlorothiazide 12.5 mg PO QAM magnesium oxide 250 mg PO DAILY metoprolol succinate ER 100 mg PO DAILY Shower Chair As directed vitamin E (dl, acetate) 180 mg PO DAILY Tobacco use date assessed: 05/04/25 Fall risk assessment: No Falls in past year Last assessed Fall Risk: 05/04/25 Dental Screening Dental Screen Date: 05/04/25 Did you have a dental visit in the last 12 months?: Yes Did you have a dental problem in the last 6 months where you did not have access to dental care?: No Was dental information given to patient?: Patient has dentist HPI 6 months f/up HPI Details 74-year-old lady here today for follow-u p on her diabetes mellitus, dyslipidemia and hypertension. She has changed her diet and has cut back down on her sweets, latest hemoglobin A1c has come down from 7.0% to 6.3% in 3 months. Blood pressure stable and controlled, but has only been taking hydrochlorothiazide and metoprolol succinate and has not started taking her valsartan, which was started on previous visit in November. Patient forgot what the medicine was for and did not take it. She also has not been taking her rosuvastatin, with last fasting lipids still showing elevated LDL cholesterol unchanged from last check. Again patient forgot what it was for. She is up-to-date with her diabetes retinopathy screening, went to [place] and saw an railroad repairer there, no diabetic retinopathy seen. Patient however has been advised to get her blood sugar levels controlled Complains of intermittent episode of pain, itching and swelling in upper eyelids, accompanied by increased tearing, especially during the springtime. Denies any symptoms at present. [facility] Medical History Rash and nonspecific skin eruption Nonerosive nonspecific gastritis Dysphagia Overactive bladder Skin tags, multiple acquired Erythema intertrigo Cystocele and rectocele with incomplete uterovaginal prolapse Pelvic organ prolapse quantification stage 2 rectocele Pelvic organ prolapse quantification stage 3 cystocele Urinary incontinence 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 Mother No problems noted. Brother No problems noted. Social History Housing: House Alcohol intake: never Patient Tobacco Use Status: Never used Tobacco e-Cigarette/Vaping Use: Never Used Current occupational status: retired Cognitive needs: No Hearing needs: No Vision needs: No Questionnaire PHQ-9 Over the last 2 weeks, how often have you been bothered by any of the following problems? 1. Little interest or pleasure in doing things: not at all 2. Feeling down, depressed, or hopeless: not at all 3. Trouble falling or staying asleep, or sleeping too much: not at all 4. Feeling tired or having little energy: not at all 5. Poor appetite or overeating: not at all 6. Feeling bad about yourself - or that you are a failure or have let yourself or your family down: not at all 7. Trouble concentrating on things, such as reading the newspaper or watching television: not at all 8. Moving or speaking so slowly that other people could have noticed. Or the opposite - being so fidgety or restless that you have been moving around a lot more than usual: not at all 9. Thoughts that you would be better off or of hurting yourself in some way: not at all Total score: 0 Depression Screening Interpretation: Negative Depression Screening Done: Yes 04175 - PHQ-9 Billing: Yes Source: Developed by Drs. Aníbal Singer, April Jackson, Raimundo Johnston and colleagues, with an educational darian from [employer]. Thrive Questionnaire Date Thrive assessed: 04/27/25 I am a: Patient What is your living situation today?: I have a steady place to live Within the past 12 months, did the food you bought not last and you didn't have the money to get more?: Never true Within the past 12 months, did you worry whether your food would run out before you got money to buy more?: Never true Do you have trouble paying for medicines?: No Do you have trouble getting transportation to medical appointments?: Yes Do you have trouble paying your heating and electricity bill?: No Do you have trouble taking care of your child, family member or friend?: No Do you have trouble with day-to-day activities such as bathing, preparing meals, shopping, managing finances, etc.?: No Are you currently unemployed and looking for a job?: No Are you interested in more education?: No Please select the resources that you would like help with: Transportation Currently or been in a relationship where the following occur: No concerns reported THRIVE Score: 1 AUDIT C Alcohol Use Questionnaire (AUDIT-C) 1. How often do you have a drink containing alcohol?: Never 3. How often do you have six or more drinks on one occasion?: Never Total Score: 0 ASHLEY-7 AMB Questionnaire ASHLEY-7 Date ASHLEY - 7 assessed: 12/01/24 Feeling nervous, anxious, or on edge: 0 = Not at all Not being able to stop or control worryin = Not at all Worrying too much about different things: 0 = Not at all Trouble relaxin = Not at all Being so restless that it is hard to sit still: 0 = Not at all Becoming easily annoyed or irritable: 0 = Not at all Feeling afraid as if something awful might happen: 0 = Not at all Total ASHLEY-7 score (0-4 normal; 5-9 mild; 10-14 moderate; 15-21 severe): 0 Source: Developed by Drs. Aníbal Singer, April Jackson, Raimundo Johnston and colleagues, with an educational darian from [employer]. Review of Systems Const Reports as per HPI and Denies weakness Eyes Details: Dr Giovani Edmonds done in [place] in 01/13/2025 -no diabetic retinopathy Reports as per HPI ENT Reports Normal hearing present and Denies dizziness Card Reports as per HPI, Denies chest pain, Denies chest pain at rest, Denies chest pain with activity, Denies dyspnea and Denies dyspnea on exertion Resp Reports as per HPI, Denies cough, Denies dyspnea and Denies dyspnea on exertion GI Reports as per HPI, Denies abdominal pain, Denies nausea and Denies vomiting Reports no additional complaints Musc Denies numbness Skin/Breast Reports as per HPI, Denies erythema and Denies wounds Neuro Reports Normal hearing present, Denies dizziness, Denies numbness, Denies Sensory deficit (Neuro) and Denies weakness Psych Reports no additional complaints Endo Reports no additional complaints Too/Lymph Reports no additional complaints Aller/Immun Reports seasonal rhinorrhea Physical exam (Primary Care) Vital Signs: Last Vital Signs Temp 98.0 F 05/04/25 08:04 Pulse 62 05/04/25 08:04 Resp 16 05/04/25 08:04 BP 120/78 05/04/25 08:04 Pulse Ox 98 05/04/25 08:04 Oxygen Delivery Method Room Air 05/04/25 08:04 BMI result Body Mass Index 23.2 Tobacco/Smoking Status: Tobacco use Status Tobacco use date assessed 05/04/25 05/04/25 07:53 Patient Tobacco Use Status Never used Tobacco 05/04/25 07:53 e-Cigarette/Vaping Use Never Used 05/04/25 07:53 PHQ-9: PHQ-9 Score PHQ-9: Total score 0 05/10/25 11:05 Depression Screening Interpretation: Negative Thrive Assessment: Date of Thrive Assessment Date Thrive assessed 04/27/25 05/04/25 07:53 Currently or been in a relationship where the following occur: No concerns reported Const Other: Alert oriented x3, ambulatory with normal gait without assistance HENMT Head: Yes normocephalic Ears: external ears normal General nose exam: Normal external nose present Face and sinus: Yes face symmetric Mouth: Normal oral and palatal mucosa present and moist mucous membranes Eyes General: appearance normal, both eyes and all related structures Pupils: Equal, round and reactive pupils present EOM: EOMs intact bilaterally Neck Neck: Yes full ROM, Yes no lymphadenopathy and Yes supple Resp Auscultation: clear to auscultation bilaterally Cardio Other: S1-S2 present regular rate and rhythm GI Other: Normal bowel sounds, soft, nontender with no mass palpated Neuro General: gait normal, tone normal, moves all extremities and no focal motor deficits Cranial nerves: Yes Equal, round and reactive pupils present and Yes Normal hearing present Gait exam (Neuro): Normal gait present Motor exam (neuro): 5/5 motor strength present throughout Sensory Exam: No Sensory deficit (Neuro) Romberg Test: Negative Extrem General: Yes full ROM, Yes no joint enlargement, Yes no clubbing, cyanosis or edema, Yes no calf tenderness and Yes normal gait Psych Appearance: grossly normal and well kempt Mental Status: mental status grossly normal Speech and movement: Normal speech and movement present Affect: normal affect Results Reviewed Results Reviewed: Laboratory Tests 04/28/25 08:20 Estimat Average Glucose 134 Hemoglobin A1c % 6.3 H Name: Maggy Hamilton Age/Sex: 74/F : 1950 Unit#: [id number] Attend Dr: Francine Bella PA-C Re04/28/25 Status: DEP REF Location: [facility] Disch: SPEC : [id number] NATALIE: 04/28/25 STATUS: COMP REQ : [id number] RECD: 04/28/[address]: Bessy Arreguin MD COMP: 04/28/25 ENTERED: 04/28/[address]: Francine Bella PA-C ORDERED: Met Prof Fast, AST, ALT, Lipid Panel, Vitamin D 25-OH Test Result Flag Reference Sodium 141 135-145 mmol/L Potassium 3.9 3.3-5.1 mmol/L CL 106 96-108 mmol/L CO2 28 22-29 mmol/L Gap 11 L 12-20 BUN 14 9-16 mg/dL Creat 0.73 0.5-1.4 mg/dL eGFR > 60 Chronic Kidney Disease: Estimated GFR < 60 mL/min/1.73m2 Severe Kidney Disease: Estimated GFR < 15 mL/min/1.73m2 FBS 157 H 60-99 mg/dL A fasting glucose of 126 mg/dl or greater on more than one occasion is considered diagnostic of diabetes. CA 9.1 8.4-10.2 mg/dL AST (GOT) 27 5-31 U/L ALT (GPT) 26 0-31 U/L Triglyceride 137 <150 mg/dL Desirable Triglyceride: less than 150 mg/dL Borderline High Triglyceride 150-199 mg/dL High Triglyceride: 200-499 mg/dL Very High Triglyceride: greater than or equal to 5OO mg/dL Cholesterol 209 H <200 mg/dL Desirable Cholesterol: less than 200 mg/dL Borderline High Cholesterol: 200-239 mg/dL High Cholesterol: greater than 239 mg/dL LDL Calculated 133 H <100 mg/dL Desirable LDL: less than 100 mg/dL Near Optimal/Above Optimal LDL: 110-129 mg/dL Borderline High LDL: 130-159 mg/dL High LDL: 160-189 mg/dL Very High LDL: greater than or equal to 190 mg/dL HDL 49 >40 mg/dL Desirable HDL: greater than 40 mg/dL Note: This HDL assay may give artificially low results in patients with liver disease. Vitamin D 25-OH 39.5 >30 ng/mL Health Based Reference Values* < 20 ng/mL Deficient 20-30 ng/mL Insufficient > 30 ng/mL Sufficient Coding Level of Care Code Est Pt Level 4 (08387) Diagnoses Dyslipidemia E78.5 Type 2 diabetes mellitus without complication, without long-term current use of insulin E11.9 Essential hypertension I10 Additional Codes PHQ-9 - 14910 - PHQ-9 Billing: Yes ([id number]) Assessment & Plan Assessment & Plan (1) Dyslipidemia: Code(s): E78.5 - Hyperlipidemia, unspecified Category: Medical Plan: Advised to start taking rosuvastatin 5 mg per tablet taken 1 tablet every other day, repeat another fasting lipid panel in August 2025 (2) Type 2 diabetes mellitus without complication, without long-term current use of insulin: Code(s): E11.9 - Type 2 diabetes mellitus without complications Category: Medical Plan: Diabetes mellitus better controlled with adherence to healthy eating habits and regular exercise. Will repeat another A1c in August 2025. Up-to-date with her diabetes retinopathy screening, no microalbuminuria (3) Essential hypertension: Code(s): I10 - Essential (primary) hypertension Category: Medical Plan: Blood pressure at goal of less than 130/80. Continue with hydrochlorothiazide, metoprolol succinate ER and start taking valsartan 40 mg daily Reinforced importance of following a low sodium diet, getting regular exercise, and lowering stress levels. Orders: Orders Hemoglobin A1c 08/29/25 E11.9 - Type 2 diabetes mellitus without complications, E78.5 - Hyperlipidemia, unspecified, I10 - Essential (primary) hypertension Aspartate Amino Transferase 08/29/25 E11.9 - Type 2 diabetes mellitus without complications, E78.5 - Hyperlipidemia, unspecified, I10 - Essential (primary) hypertension Lipid Panel 08/29/25 E11.9 - Type 2 diabetes mellitus without complications, E78.5 - Hyperlipidemia, unspecified, I10 - Essential (primary) hypertension Alanine Aminotransferase 08/29/25 E11.9 - Type 2 diabetes mellitus without c omplications, E78.5 - Hyperlipidemia, unspecified, I10 - Essential (primary) hypertension Basic Metabolic Panel Fasting 08/29/25 E11.9 - Type 2 diabetes mellitus without complications, E78.5 - Hyperlipidemia, unspecified, I10 - Essential (primary) hypertension Medications: Refilled rosuvastatin 5 mg PO Q2D 45 tabs 2RF 3 months E11.9 - Type 2 diabetes mellitus without complications, E78.5 - Hyperlipidemia, unspecified valsartan 40 mg PO DAILY 90 tabs 1RF
[2025-05-04 08:04] VITALS: BP 120/78; PULSE 62; RESP 16; TEMP 36.7; O2SAT 98; BMI 23.2
== END 2025-05-04 08:53 | disposition home or self-care (01) ==
LOC: HO.HMCC 07:49
PROVIDERS: PCP Internal Medicine; Visit Provider Internal Medicine
DX: E78.5 Hyperlipidemia, unspecified (principal); E11.9 Type 2 diabetes mellitus without complications; I10 Essential (primary) hypertension

== ENCOUNTER → 2025-05-04 07:48 | Outpatient (BNVA) | payer MEDICARE, BC, SELFPAY | PROVIDERS: PCP Internal Medicine; Visit Provider Internal Medicine | DX: E78.5 Hyperlipidemia, unspecified (principal); E11.9 Type 2 diabetes mellitus without complications; I10 Essential (primary) hypertension | CPT/HCPCS: 96127; 99212 ==

== ENCOUNTER 2025-05-14 08:42 | Outpatient (REF) | payer MEDICARE, BC, SELFPAY ==
--- NOTE | ~2025-05-14 | MM_ITS ---
EXAMINATION: MM SCREENING DIGITAL BREAST TOMOSYNTHESIS, BILATERAL CLINICAL INFORMATION: Screening. Asymptomatic. COMPARISON: Mammography: Comparison is made with available priors TECHNIQUE: Digital breast mammography with tomosynthesis is performed in both the craniocaudal and mediolateral oblique views along with computer-aided detection (CAD). FINDINGS: There are scattered areas of fibroglandular density (ACR BI-RADS breast composition Category b). Left marker clip. There are no significant masses, abnormal calcifications, or other abnormalities. MM/MM tomosynthesis screening BI IMPRESSION: No mammographic evidence of malignancy. ASSESSMENT: BI-RADS BI-RADS 2 - Benign Findings RECOMMENDATION: Routine annual mammography screening. 1 year F/U This examination should not preclude the clinical evaluation of a suspicious palpable abnormality. This patient's information was entered into a reminder system with a target due date for their next mammogram. Electronically signed by: Yaquelin Dominguez DO 05/25/2025 10:18 AM EDT
== END 2025-05-14 08:43 | disposition home or self-care (01) ==
LOC: HO.MAMMO 08:42
PROVIDERS: PCP Internal Medicine; Visit Provider Internal Medicine
DX: Z12.31 Encounter for screening mammogram for malignant neoplasm of breast (principal); Q25.49 Other congenital malformations of aorta
CPT/HCPCS: 77063; 77067; 99212

== ENCOUNTER → 2025-05-14 09:00 | Outpatient (BNV) | payer MEDICARE, BC, SELFPAY | PROVIDERS: PCP Internal Medicine; Visit Provider Internal Medicine | DX: Z12.31 Encounter for screening mammogram for malignant neoplasm of breast (principal) | CPT/HCPCS: 77063; 77067 ==

== ENCOUNTER 2025-05-14 09:20 | Outpatient (AMB) | payer MEDICARE, BC, SELFPAY ==
[2025-05-14 09:23] VITALS: BP 122/60; BMI 23.2
--- NOTE | 2025-05-14 09:23 | A.OFFVIS_ITS ---
Vital Signs 05/14/25 09:23 05/14/25 09:25 Height 5 ft 4 in Weight 135 lb BMI 23.2 BP 122/60 138/68 Blood Pressure Location Rt brachial Lt brachial Position Sitting Sitting Intake Visit Reasons: follow up s/p CTA neck/chest 04/28/25 Head Field Hockey Coach Required: Yes Head Field Hockey Coach Name: UTE [id number] Allergies amlodipine Allergy (Unknown, Verified 05/04/25 08:24) unk chlorpromazine (From Thorazine) Allergy (Unknown, Verified 05/04/25 08:24) Unknown doxepin Allergy (Unknown, Verified 05/04/25 08:24) unk haloperidol (Haldol) Allergy (Unknown, Verified 05/04/25 08:24) unk prochlorperazine (From Compazine) Allergy (Unknown, Verified 05/04/25 08:24) Unknown simvastatin Allergy (Unknown, Verified 05/04/25 08:24) unk thioridazine Allergy (Unknown, Verified 05/04/25 08:24) unk trifluoperazine Allergy (Unknown, Verified 05/04/25 08:24) Unknown lisinopril Adverse Reaction (Severe, Verified 05/04/25 08:24) cough HPI HPI follow up s/p CTA neck/chest 04/28/25: Details: Pleasant 74-year-old female presents for routine surveillance follow-up regarding CT angiogram of neck and chest. She has a prior history of dysphagia lusoria. She underwent descending thoracic aneurysm in 2017. In addition she does have a history of carotid subclavian bypass all done at [facility]. At the current time tolerating a regular diet with frequent small meals. She did have some abdominal discomfort and presented for follow-up with CT angiogram [facility] Medical History Rash and nonspecific skin eruption Nonerosive nonspecific gastritis Dysphagia Overactive bladder Skin tags, multiple acquired Erythema intertrigo Cystocele and rectocele with incomplete uterovaginal prolapse Pelvic organ prolapse quantification stage 2 rectocele Pelvic organ prolapse quantification stage 3 cystocele Urinary incontinence 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 Mother No problems noted. Brother No problems noted. Social History Housing: House Alcohol intake: never Patient Tobacco Use Status: Never used Tobacco e-Cigarette/Vaping Use: Never Used Current occupational status: retired Cognitive needs: No Hearing needs: No Vision needs: No Review of Systems Const All systems reviewed & are unremarkable except as noted in HPI and below Reports no additional complaints ENT Reports Normal hearing present Card Denies chest pain, Denies chest pain at rest, Denies chest pain with activity and Denies pedal edema Resp Denies cough GI Denies abdominal pain Musc Denies abnormal gait, Denies muscle cramps and Denies radiating pain into limb Skin/Breast Denies skin ulcer and Denies wounds Neuro Reports Normal hearing present and Denies abnormal gait Psych Reports no additional complaints Physical Exam Vital Signs: Last Vital Signs BP 138/68 05/14/25 09:25 BMI result Body Mass Index 23.2 Const General: cooperative, healthy appearing and comfortable Orientation/consciousness: oriented to person, oriented to place and oriented to time HEENT Head: Yes normal to inspection Neck Neck: Yes normal visual inspection Carotids: no bruits Chest Chest palpation & inspection: normal inspection of the chest Resp Effort & Inspection: normal respiratory effort and able to speak in complete sentences Auscultation: clear to auscultation bilaterally, no crackles, no rales, no rhonchi and no wheezes Cardio Other: Palpable brachial radial ulnar pulses bilaterally Rate: regular rate Rhythm: regular rhythm Heart sounds: S1 normal heart sound present and S2 normal heart sound present Bruits: no carotid bruits Peripheral pulses: Peripheral pulses 2+ throughout GI Inspection: Yes normal to inspection Skin Wounds: no wounds Hair: normal Neuro General: oriented to person, oriented to place and oriented to time Cranial nerves: Yes CN's II-XII intact bilaterally and Yes Normal hearing present Cognition (Neuro): normal cognition Motor exam (neuro): 5/5 motor strength present throughout Extrem Other: venous exam: No significant superficial varicosities or spider telangiectasias, minimal edema General: No clubbing, No cyanosis and No edema Psych Appearance: grossly normal Mental Status: mental status grossly normal Speech and movement: Normal speech and movement present Results Reviewed Results Reviewed: CT angiogram dated 04/28/2025 demonstrates normal descending thoracic aorta. Right carotid subclavian bypass appears to be patent Assessment & Plan Assessment & Plan (1) Kommerell's diverticulum: Comment: 03/21/2017 - open graft replacement of upper descending thoracic aneurysm with [address] Sesay 03/09/2017 - right carotid subclavian bypass by Dr. 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 I did spend a fair amount of time providing her reassurance that everything was stable. She did note some discomfort eating but I did request that she continue with frequent small meals. Stable from a vascular perspective. Will plan for 1 year surveillance follow-up with CT angiogram. Thank you for allowing us to assist in her care. 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
[2025-05-14 09:25] VITALS: BP 138/68
== END 2025-05-14 09:54 | disposition home or self-care (01) ==
LOC: HO.HVS 09:21
PROVIDERS: PCP Internal Medicine; Visit Provider Surgery Vascular Surgery
DX: Q25.49 Other congenital malformations of aorta (principal)
CPT/HCPCS: 99214; G2211

== ENCOUNTER 2025-09-22 08:14 | Outpatient (REF) | payer MEDICARE, BC, SELFPAY ==
--- OUTSIDE RECORDS SUMMARY | 2015-11-16 | XMS_ITS | Encounter Summary ---
Author Organization [facility] Address [address] [place] [address] Phone Care Team Providers Care Tax Auditor Name Role Phone Unavailable Primary Care Provider Unavailabl e Encounter Details Date Type Department Care Team (Late st Contact Info) Description 11/16/2015 Hospital Encounter [facility] General Imaging [address] [place] [address] Nixon Sesay MD [address] [place] [phone] [email or web address] Social History Tobacco Use Types Packs/Day [...] (No Interpretation) (11/16/2015 12:00 AM EST) Narrative [facility] - 09/06/2016 3:47 PM EST This study is for PACS storage only and not for interpretation. us Nixon Sesay MD IMG OUTSIDE IMAGING W/OUT INT ERPRETATION Final Result [facility] documented in this encounter Visit Diagnoses Not on filedocumented in this encounter Additional Source Comments The information contained in this document represents components of the legal health record. It is not the complete legal health record.[facility]
--- OUTSIDE RECORDS SUMMARY | 2015-11-16 00:15 | XMS_ITS | Encounter Summary ---
Author Organization [facility] Address [address] [place] [address] Phone Care Team Providers Care Web Systems Developer Name Role Phone Unavailable Primary Care Provider Unavailabl e Encounter Details Date Type Department Care Team (Late st Contact Info) Description 11/16/2015 12:15 AM EST Hospital Encounter [facility] General Imaging [address] [place] [address] Nixon Sesay MD [address] [place] [phone] [email or web address] Social History Tobacco Use Types Packs/Day Years [...] (No Interpretation) (11/16/2015 12:15 AM EST) Narrative [facility] - 09/06/2016 3:47 PM EST This study is for PACS storage only and not for interpretation. us Nxion Sesay MD IMG OUTSIDE IMAGING W/OUT INT ERPRETATION Final Result [facility] documented in this encounter Visit Diagnoses Not on filedocumented in this encounter Additional Source Comments The information contained in this document represents components of the legal health record. It is not the complete legal health record.[facility]
--- OUTSIDE RECORDS SUMMARY | 2015-11-17 | XMS_ITS | Encounter Summary ---
Author Organization [facility] Address [address] [place] [address] Phone Care Team Providers Care Laser Engineer Name Role Phone Unavailable Primary Care Provider Unavailabl e Reason for Visit * MRI/CAT Scan - Closed Specialty Diagnoses / Procedures Referred By Jesica t Referred To Contact Procedures CT Abdomen Outside (No Interpretation) Nixon Sesay MD [address] [place] [phone] Phone: tel: fax: mailto:[email or web address] Referral ID Status Reason Start Date Expiration Date Visits Re quested Visits Authorized [id number] Closed 09/06/2016 09/06/2017 1 1 Encounter Details Date Type Department Care Team (Late st Contact Info) Description 11/17/2015 Hospital Encounter [facility] General Imaging [address] [place] [address] Nixon Sesay MD [address] [place] [phone] [email or web address] du Social History Tobacco Use Types Packs/Day [...] Procedure Name Priority Date/Time Associated Diagnosis Comments CT ABDOMEN OUTSIDE (NO INTERPRETATION) Routine 11/17/2015 12:00 AM EST documented in this encounter Results * CT Abdomen Outside (No Interpretation) (11/17/2015 12:00 AM EST) Narrative [facility] IMG INTERFACES - 09/06/2016 3:47 PM EST This study is for PACS storage only and not for interpretation. us Nixon Sesay MD IMG OUTSIDE IMAGING W/OUT INT ERPRETATION Final Result [facility] IMG INTERFACES documented in this encounter Visit Diagnoses Not on filedocumented in this encounter Additional Source Comments The information contained in this document represents components of the legal health record. It is not the complete legal health record.[facility]
--- OUTSIDE RECORDS SUMMARY | 2015-11-30 | XMS_ITS | Encounter Summary ---
Author Organization [facility] Address [address] [place] [address] Phone Care Team Providers Care Sr. Strategic Sourcing Manager Name Role Phone Unavailable Primary Care Provider Unavailabl e Reason for Visit * MRI/CAT Scan - Closed Specialty Diagnoses / Procedures Referred By Jesica t Referred To Contact Procedures CT Chest Outside (No Interpretation) Nixon Sesay MD [address] [place] [address] Phone: tel: fax: mailto:[email or web address] Referral ID Status Reason Start Date Expiration Date Visits Re quested Visits Authorized [id number] Closed 09/06/2016 09/06/2017 1 1 Encounter Details Date Type Department Care Team (Late st Contact Info) Description 11/30/2015 Hospital Encounter [facility] Imaging [address] [place] [address] Nixon Sesay MD [address] [place] [phone] [email or web address] du Social History Tobacco Use Types [...] (No Interpretation) (11/30/2015 12:00 AM EST) Narrative [facility]G INTERFACES - 09/06/2016 3:44 PM EST This study is for PACS storage only and not for interpretation. us Nixon Sesay MD IMG OUTSIDE IMAGING W/OUT INT ERPRETATION Final Result [facility]G INTERFACES documented in this encounter Visit Diagnoses Not on filedocumented in this encounter Additional Source Comments The information contained in this document represents components of the legal health record. It is not the complete legal health record.[facility]
--- OUTSIDE RECORDS SUMMARY | 2025-09-22 08:27 | XMS_ITS | Encounter Summary ---
Author Organization [facility] Address [address] [place] [address] Phone Care Team Providers Care Laser Print Operator Name Role Phone Ani Townsend MD Primary Care Provider Pcp, Not Required Primary Care Provider Unavaila ble Encounter Details Date Type Department Care Team (Late st Contact Info) Description 03/21/2017 Procedure Pass [facility] [place] PERIOPERATIVE DEPT [address] [place] [phone] Social History Tobacco Use Types Packs/Day Years Used Date Smoking Tobacco: Never Smokeless Tobacco: Never Alcohol Use Standard Drinks/Week Comments No 0 (1 standard drink = 0.6 oz pur e alcohol) Comments Unknown Sex and Gender Information Value Date Recorded Sex Assigned at Not on file Legal Sex Female 10:07 AM EDT Gender Identity Not on file Sexual Orientation Not on file documented as of this encounter Plan of Treatment Not on file documented as of this encounter Visit Diagnoses Not on filedocumented in this encounter Care Teams Laser Print Operator Relationship Specialty Start Date End Date Ani Townsend MD [address] [facility] [address] [place] [address] PCP - General 07/13/16 02/18/20 Pcp, Not Required [address] [place] [address] PCP - General 02/19/20 documented as of this encounter Additional Source Comments The information contained in this document represents components of the legal health record. It is not the complete legal health record.[facility]
--- OUTSIDE RECORDS SUMMARY | 2025-09-22 08:27 | XMS_ITS | Encounter Summary ---
Author Organization [facility] Address [address] [place] [address] Phone Care Team Providers Care Account Manager Relief Name Role Phone Ani Townsend MD Primary Care Provider Pcp, Not Required Primary Care Provider Unavaila ble Encounter Details Date Type Department Care Team (Late st Contact Info) Description 03/13/2017 Procedure Pass [facility] [place] PERIOPERATIVE DEPT [address] [place] [phone] Social History Tobacco Use Types Packs/Day Years [...] on filedocumented in this encounter Care Teams Account Manager Relief Relationship Specialty Start Date End Date Ani Townsend MD [address] [facility] [address] [place] [address] PCP - General 07/13/16 02/18/20 Pcp, Not Required [address] [place] [address] PCP - General 02/19/20 documented as of this encounter Additional Source Comments The information contained in this document represents components of the legal health record. It is not the complete legal health record.[facility]
--- OUTSIDE RECORDS SUMMARY | 2025-09-22 08:28 | XMS_ITS | Encounter Summary ---
Author Organization [facility] Address [facility] [address] [place] [address] Phone Care Team Providers Care Replanting Machine Operator Name Role Phone Pcp, Not Required Primary Care Provider Unavaila ble Encounter Details Date Type Department Care Team (Late st Contact Info) Description 06/22/2020 Procedure Pass [facility] [address] [facility], 5th [place] [address] Social History Tobacco Use Types Packs/Day Years [...] on file documented as of this encounter Functional Status * Patient is deaf or has serious difficulty with hearing Answer Date of Assessment Author No 03/27/2017 5:47 AM EDT Doug Aleman PA * Patient is blind or has serious difficulty with seeing, even when wearing glasses Answer Date of Assessment Author No 03/27/2017 5:47 AM Doug Sears PA * Patient has serious difficulty walking or climbing stairs (5yr old or older) Answer Date of Assessment Author No 03/27/2017 5:47 AM Doug Sears PA * Patient has serious difficulty dressing or bathing (5yr old or older) Answer Date of Assessment Author No 03/27/2017 5:47 AM Doug Sears PA * Patient has serious difficulty doing errands alone such as visiting a doctor???s office or shopping, due to physical, mental, or emotional condition (15 years old or older) Answer Date of Assessment Author No 03/27/2017 5:47 AM Doug Sears PA documented as of this encounter Mental Status * Patient has serious difficulty concentrating, remembering, or making decisions due to physical, mental, or emotional condition Answer Entry Date Author No 03/27/2017 5:47 AM Doug Sears PA documented in this encounter Plan of Treatment Not on file documented as of this encounter Visit Diagnoses Not on filedocumented in this encounter Care Teams Replanting Machine Operator Relationship Specialty Start Date End Date Pcp, Not Required [address] [place] [address] PCP - General 02/19/20 documented as of this encounter Additional Source Comments The information contained in this document represents components of the legal health record. It is not the complete legal health record.[facility]
--- OUTSIDE RECORDS SUMMARY | 2025-09-22 08:28 | XMS_ITS | Encounter Summary ---
Author Organization [facility] Address [facility]ly [facility] [employer] [facility] [address] [place] [address] Phone Care Team Providers Care Sewer Tapper Name Role Phone Ani Townsend MD Primary Care Provider Pcp, Not Required Primary Care Provider Unavaila ble Reason for Referral * Consultation (Within 1 month) - Closed Specialty Diagnoses / Procedures Referred By Contac t Referred To Contact Gastroenterology Diagnoses Dysphagia, unspecified type Achalasia Anne Gay MD Phone: tel: fax: Roddy Edmonds MD Phone: tel: fax: mailto:[email or web address] Referral ID Status Reason Start Date Expiration Date Visits Re quested Visits Authorized [id number] Closed 02/03/2020 02/02/2021 1 1 Encounter Details Date Type Department Care Team (Latest Contact Info) Description 02/03/2020 Transcribe Orders [facility] [address] [place] [address], 5th [place] [address] Ani Townsend MD [address] [place] [address] Dysphagia, unspecified type (Primary Dx); Achalasia Social History Tobacco Use Types Packs/Day Years [...] AM EDT Doug Aleman PA * Patient has serious difficulty walking or climbing stairs (5yr old or older) Answer Date of Assessment Author No 03/27/2017 5:47 AM EDT Doug Aleman PA * Patient has serious difficulty dressing or bathing (5yr old or older) Answer Date of Assessment Author No 03/27/2017 5:47 AM EDT Doug Aleman PA * Patient has serious difficulty doing errands alone such as visiting a doctor???s office or shopping, due to physical, mental, or emotional condition (15 years old or older) Answer Date of Assessment Author No 03/27/2017 5:47 AM EDT Doug Aleman PA documented as of this encounter Mental Status * Patient has serious difficulty concentrating, remembering, or making decisions due to physical, mental, or emotional condition Answer Entry Date Author No 03/27/2017 5:47 AM EDT Doug Aleman PA documented in this encounter Plan of Treatment Scheduled Referrals Name Type Priority Associated Diagnoses Order Schedule Ambulatory referral to [facility] Gastroenterology (Consult Requests Only) Outpatient Referral Routine Dysphagia, unspecified type Achalasia Ordered: 02/03/2020 documented as of this encounter Visit Diagnoses Diagnosis Dysphagia, unspecified type- Primary Achalasia Achalasia and cardiospasm documented in this encounter Care Teams Sewer Tapper Relationship Specialty Start Date End Date Ani Townsend MD [address] [facility] [address] [place] [address] PCP - General 07/13/16 02/18/20 Pcp, Not Required [address] [place] [address] PCP - General 02/19/20 documented as of this encounter Additional Source Comments The information contained in this document represents components of the legal health record. It is not the complete legal health record.[facility]
--- OUTSIDE RECORDS SUMMARY | 2025-09-22 08:28 | XMS_ITS | Encounter Summary ---
Author Organization [facility] Address [address] [place] [address] Phone Care Team Providers Care Patient Access Specialist Name Role Phone Ani Townsend MD Primary Care Provider Pcp, Not Required Primary Care Provider Unavaila ble Encounter Details Date Type Department Care Team (Late st Contact Info) Description 03/08/2017 Procedure Pass [facility] [address] [facility], [address] [place] [phone] Social History Tobacco Use Types Packs/Day Years [...] on filedocumented in this encounter Care Teams Patient Access Specialist Relationship Specialty Start Date End Date Ani Townsend MD [address] [facility] [address] [place] [address] PCP - General 07/13/16 02/18/20 Pcp, Not Required [address] [place] [address] PCP - General 02/19/20 documented as of this encounter Additional Source Comments The information contained in this document represents components of the legal health record. It is not the complete legal health record.[facility]
--- OUTSIDE RECORDS SUMMARY | 2025-09-22 08:28 | XMS_ITS | Encounter Summary ---
Author Organization [facility] Address [address] [place] [address] Phone Care Team Providers Care Assembler Engine Name Role Phone Ani Townsend MD Primary Care Provider Pcp, Not Required Primary Care Provider Unavaila ble Encounter Details Date Type Department Care Team (Late st Contact Info) Description 09/13/2016 Procedure Pass [facility], [address] [facility] 2nd Floor, [address] [place] [address] Social History Tobacco Use Types Packs/Day Years Used Date Smoking Tobacco: Never Assessed Comments Unknown Sex and Gender Information Value Date Recorded Sex Assigned at Not on file Legal Sex Female 10:07 AM EDT Gender Identity Not on file Sexual Orientation Not on file documented as of this encounter Plan of Treatment Not on file documented as of this encounter Visit Diagnoses Not on filedocumented in this encounter Care Teams Assembler Engine Relationship Specialty Start Date End Date Ani Townsend MD [address] [place] [address] PCP - General 07/13/16 02/18/20 Pcp, Not Required [address] [place] [address] PCP - General 02/19/20 documented as of this encounter Additional Source Comments The information contained in this document represents components of the legal health record. It is not the complete legal health record.[facility]
--- OUTSIDE RECORDS SUMMARY | 2025-09-22 08:28 | XMS_ITS | Clinical Summary ---
Author Organization [facility] Address [facility] [employer] [address] [address] Phone Care Team Providers Care Business Services Coordinator Name Role Phone Pcp, Not Required Primary Care Provider Unavaila ble Allergies Active Allergy Reactions Criticality Noted Date Comments Amlodipine Headaches 03/01/2017 Compazine (Prochlorperazine) Unknown 03/01/2017 Haldol (Haloperidol) Dystonia 03/01/2017 Mellaril (Thioridazine) Other (See Comments) 03/01/2017 Involuntary hand movements Simvastatin Shortness Of Breath High 03/01/2017 Sinequan (Doxepin) Other (See Comments) 017 Involuntary hand movement Sparine Other (See Comments) 03/01/2017 Involuntary hand movement Stelazine (Trifluoperazine) Other (See Comments) 03/01/2017 Involuntary hand movement Thorazine (Chlorpromazine) Dystonia 03/01/2017 Torecan (Thiethylperazine Maleate) Dystonia 03/01/2017 Trilafon (Perphenazine) Other (See Comments) 03/01/2017 Involuntary hand movements Valsartan Shortness Of Breath High 03/01/2017 Medications ascorbic acid, vitamin C, (VITAMIN C) 500 MG tablet Take 500 mg by mouth daily. Active calcium carbonate (OS-TATO) 1,250 mg (500 mg elemental) tablet Take 1 tablet by mouth daily. Active cholecalciferol (VITAMIN D3) 400 unit tablet Take 400 Units by mouth daily. Active omeprazole (PRILOSEC) 20 mg TbEC Take 20 mg by mouth daily before breakfast. Active metoprolol succinate (TOPROL-XL) 100 MG 24 hr tablet Take 1 tablet (100 mg total) by mouth 2 (two) times a day. 03/28/2017 Active potassium chloride SA (K-DUR,KLOR-CON) 20 MEQ tablet Take 1 tablet (20 mEq total) by mouth daily. 03/29/2017 Active aspirin 81 mg chewable tablet Take 81 mg by mouth daily. Active hydroCHLOROthiaz rajan (HYDRODIURIL) 12.5 MG tablet Take 12.5 mg by mouth daily. Active pravastatin (PRAVACHOL) 40 MG tablet Take 40 mg by mouth daily. Active biotin 300 mcg Tab Take 5,000 mcg by mouth daily. Active cinnamon bark (CINNAMON) 500 mg capsule Take 500 mg by mouth daily. Active ferrous furamate 324 mg (106 mg elemental) Tab Take 324 mg by mouth daily with breakfast. Active Active Problems Problem Noted Date Diagnosed Date History of ascending aorta repair 11/09/2019 HERNANDEZ (dyspnea on exertion) 11/09/2019 Atypical chest pain 11/09/2019 Essential hypertension 03/21/2017 Assessment & Plan (03/27/2017 4:26 PM EDT): Mild HTN intermittently. Goal BP <140/90. Resumed beta rylan-preop dose was 100 mg bid, now on Toprol 100 daily. Could increased to BID. Still may need MICK inhibitor. Ruptured thoracic aortic aneurysm 03/21/2017 Aberrant subclavian artery 03/13/2017 Assessment & Plan (03/25/2017 8:59 AM EDT): Stable s/p right carotid to subclavian bypass on 03/09/17 for esophageal obstruction. Assessment & Plan (03/13/2017 11:06 AM EDT): S/p right carotid-subclavian bypass 03/10 Félix Torres and Ester. Stable at present; denies discomfort. Minimal drainage currently from JIA at surgical site. Thoracic aortic aneurysm without rupture 017 Assessment & Plan (03/27/2017 4:26 PM EDT): TAA with dissection and intramural hematoma in setting of ulceration. Now post op repair of aberrant right subclavian artery. Her post op recovery has been notable for pain and pulmonary edema. Approaching euvolemia. -Continue diuresis, ASA, statin, BB. -Increase ambulation and pulmonary toilet Assessment & Plan (03/13/2017 10:55 AM EDT): Stable at present. For surgery today, 2nd case. Atherosclerosis of council co ronary artery of council heart without angina pectoris 02/14/2017 Assessment & Plan (03/24/2017 11:55 AM EDT): No CAD on CT Assessment & Plan (03/12/2017 4:25 PM EDT): No CAD on CT Family History Relation Status Comments Sister Alive TWIN Social History Tobacco Use Types Packs/Day Years [...] on file Sexual Orientation Not on file Last Filed Vital Signs Vital Sign Reading Time Taken Comments Blood Pressure 190/89 06/22/2020 12:37 PM EDT Pulse 72 06/22/2020 12:37 PM EDT Temperature 35.9 C (96.7 F) 06/22/2020 12:37 PM EDT Respiratory Rate 18 06/22/2020 12:37 PM EDT Oxygen Saturation 97% 06/22/2020 12:37 PM EDT Inhaled Oxygen Concentration 60% 03/22/2017 8 :06 AM EDT Weight 69.4 kg (153 lb) 11/05/2019 9:38 AM EST Height 162.6 cm (5' 4 ) 11/05/2019 9:38 AM EST Body Mass Index 26.26 11/05/2019 9:38 AM EST Plan of Treatment Health Maintenance Due Date Last Done Comments Adult Td,Tdap Booster 1950 BLOOD PRESSURE 1950 DEPRESSION SCREENING 1962 HEPATITIS C SCREENING 1968 LIPID PANEL 1968 MAMMOGRAM 1990 COLOGUARD 1995 COLONOSCOPY 1995 COLORECTAL CANCER SCREENING 1995 FIT TEST 1995 FOBT 1995 SIGMOIDOSCOPY 1995 VIRTUAL COLONOSCOPY 1995 OSTEOPOROSIS SCREENING INITIAL (ONE-TIME) 2015 POTASSIUM LEVEL 03/27/2018 03/27/2017, 02/27, 03/25/2017, Additional history exists ZOSTER VACCINES (2 of 2) 12/09/2019 10/14/2019 INFLUENZA VACCINE (#1) 2025 , 09/08/2019, 11/08/2018 COVID-19 VACCINE (3 - 2024- season) 2025 02/15/2021, 01/24/2021 RSV VACCINE (1 - 1-dose 75+ series) 2025 PNEUMOCOCCAL VACCINES (50+ years) Completed 09/08/2019, 09/14/2017 SMOKING STATUS SCREENING (Once After 26 Yrs) Completed 06/22/2020 HEPATITIS A VACCINES Aged Out No long er eligible based on patient's age to complete this topic HIB VACCINES Aged Out No longer eligi ble based on patient's age to complete this topic MENINGOCOCCAL VACCINES (ACWY) Aged Out No longer eligible based on patient's age to complete this topic MENINGOCOCCAL VACCINES (B) Aged Out N o longer eligible based on patient's age to complete this topic Medical Devices Implanted Type Area Weld Lay Out Worker Device Identifier Shelf Expiration Date Model / Serial / Lot Graft Vascular [id number] Straight Std Wall Non Ringed Woven Straight Antegrade Flow Perfusion Side Branch [employer] - [id number] Implanted:Qty: 1 on 03/21/2017 by Nixon Sesay MD at [facility] SMDA N/A: Aorta [employer] 01/26/2021 [id number] / [id number] / [id number] Prema Roberts Implanted:Qty: 1 on 03/10/2017 by Josemanuel Dow MBBS at [facility] Right: Arterial [employer] 07/28/2019 [id number] / [id number] / [id number] Procedures Procedure Name Priority Date/Time Associated Diagnosis Comments BASIC METABOLIC PANEL (BMP) Routine 03/27/2017 8:27 AM EDT from Last 3 Months or Most Recently Relevant to Health Maintenance Results * (ABNORMAL) Basic metabolic panel (03/27/2017 8:27 AM EDT) SODIUM 141 135 - 145 mmol/L [facility] POTASSIUM 3.8 3.4 - 5.0 mmol/L [facility] CHLORIDE 102 98 - 108 mmol/L [facility] CO2 27 23 - 32 mmol/L [facility] BUN 14 8 - 25 mg/dL [facility] CREATININE 0.60 0.60 - 1.50 mg/dL [facility] GLUCOSE 134(H) 70 - 110 mg/dL [facility] CALCIUM 8.7 8.5 - 10.5 mg/dL [facility] EGFR >60 >60 mL/min/1. 73m2 [facility] Comment:The normal range for eGFR is >60 mL/min/1.73m2. ANION GAP 12 3 - 17 mmol/L [facility] Blood 03/27/2017 8:27 AM EDT 03/27/2017 8:51 AM EDT us Edmar [facility] LAB BLOOD BKR ORDERABLES Fi nal Result [facility] [address] [place] [address] from Last 3 Months or Most Recently Relevant to Health Maintenance Insurance MEDICARE PART A & B [employer] [place] PART A & [place] [id number] [employer] PPO MEDICARE PART A & B [facility] OUT [facility] PPO MEDICARE PART A & B [employer] [place] OUT OF STATE PPO MEDICARE PART A & B [facility] PPO MEDICARE PART A & B [facility] OUT OF STATE PPO MEDICARE PART A & B [facility] OUT OF STATE PPO MEDICARE PART A & B [facility] PPO MEDICARE PART A & B [facility] OUT OF [facility] PPO Advance Directives For more information, please contact: [phone] (9AM - 5PM [facility], Sunday-Sunday) Documents on File Type Date Recorded Patient Relationship Manager Expl anation Healthcare Proxy 03/01/2017 9:40 AM Signed on 02/28/17 * Full Code (Presumed) (Latest Code Status on File) Date Activated Date Inactivated Comments 03/21/2017 6:18 PM 03/28/2017 1:56 PM * Full Code (Presumed) Date Activated Date Inactivated Comments 03/10/2017 2:02 PM 03/13/2017 7:02 PM * Full Code (Presumed) Date Activated Date Inactivated Comments 03/09/2017 5:12 PM 03/10/2017 1:44 PM Care Teams Business Services Coordinator Relationship Specialty Start Date End Date Pcp, Not Required [address] [place] [address] PCP - General 02/19/20 Additional Source Comments The information contained in this document represents components of the legal health record. It is not the complete legal health record.[facility]
--- OUTSIDE RECORDS SUMMARY | 2025-09-22 08:28 | XMS_ITS | Encounter Summary ---
Author Organization [facility] Address [address] [place] [address] Phone Care Team Providers Care Card Brusher Name Role Phone Ani Townsend MD Primary Care Provider Pcp, Not Required Primary Care Provider Unavaila ble Encounter Details Date Type Department Care Team (Late st Contact Info) Description 04/24/2018 Procedure Pass [facility] [address] [place] [address] Social History Tobacco Use Types Packs/Day Years [...] on filedocumented in this encounter Care Teams Card Brusher Relationship Specialty Start Date End Date Ani Townsend MD [address] [facility] [address] [place] [address] PCP - General 07/13/16 02/18/20 Pcp, Not Required [address] [place] [address] PCP - General 02/19/20 documented as of this encounter Additional Source Comments The information contained in this document represents components of the legal health record. It is not the complete legal health record.[facility]
--- OUTSIDE RECORDS SUMMARY | 2025-09-22 08:28 | XMS_ITS | Encounter Summary ---
Author Organization [facility] Address [address] [place] [address] Phone Care Team Providers Care Recycling Assistant Name Role Phone Ani Townsend MD Primary Care Provider Pcp, Not Required Primary Care Provider Unavaila ble Encounter Details Date Type Department Care Team (Late st Contact Info) Description 10/13/2016 Ancillary Orders [facility] [address], 6th Floor, [address] [place] [address] Nixon Sesay MD [address] [place] [address] [email or web address] Pseudoaneurysm Social History Tobacco Use Types Packs/Day Years Used Date Smoking Tobacco: Never Assessed Comments Unknown Sex and Gender Information Value Date Recorded Sex Assigned at Not on file Legal Sex Female 10:07 AM EDT Gender Identity Not on file Sexual Orientation Not on file documented as of this encounter Plan of Treatment Not on file documented as of this encounter Results * FL BARIUM SWALLOW ESOPHAGRAM SINGLE CONTRAST (10/27/2016 9:20 AM EST) Anatomical Region Laterality Modality Chest Radio Fluoroscop y 10/27/2016 9:30 AM EST Impressions 10/27/2016 3:05 PM EST Fixed posterior wall esophageal defect, 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 Contrast was able to episodically passed into the distal esophagus and a barium pill passed without delay into the stomach. Severe gastroesophageal reflux. Narrative 10/27/2016 3:05 PM EST TECHNIQUE: BARIUM SWALLOW was performed with Sodium Carbonate and Barium. COMPARISON: None FINDINGS: Swallow: The swallowing mechanism was grossly normal. 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 Contrast was able to episodically pass into the distal esophagus. The esophagus was otherwise normally distensible and the mucosa was within normal limits. Esophageal motility was within normal limits. The barium pill passed without delay into the stomach. Gastroesophageal junction: There is no evidence of a hiatal hernia. Reflux: Assessment for gastroesophageal reflux demonstrated severe gastroesophageal reflux to the level of the aortic arch. The visualized portion of the stomach and proximal small bowel are unremarkable. Radiation Exposure: Fluoroscopy Time: 3.9 min, Dose: 84.52 mGy, Dose Area Product (DAP): 12.435 , Number of Spot films: 35 Procedure Note Shelby Ledesma MD - 10/27/2016 TECHNIQUE: BARIUM SWALLOW was performed with Sodium Carbonate and Barium. COMPARISON: None FINDINGS: Swallow: The swallowing mechanism was grossly normal. There is a fixed posterior wall defect, suggestive of external compression from a largeaberrant right subclavian artery. Contrast was able to episodically pass into thedistal esophagus. The esophagus was otherwise normally distensible and the mucosawas within normal limits. Esophageal motility was within normal limits. Thebarium pill passed without delay into the stomach. Gastroesophageal junction: There is no evidence of a hiatal hernia. Reflux: Assessment for gastroesophageal reflux demonstrated severe gastroesophageal reflux to the level of the aortic arch. The visualized portion of the stomach and proximal small bowel areunremarkable. Radiation Exposure: Fluoroscopy Time: 3.9 min, Dose: 84.52 mGy, Dose Area Product (DAP): 12.435 , Number of Spot films: 35 IMPRESSION: Fixed posterior wall esophageal defect, suggestive of external compressionfrom a large aberrant right subclavian artery. Contrast was able toepisodically passed into the distal esophagus and a barium pill passed without delayinto the stomach. Severe gastroesophageal reflux. 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 It is not the complete legal health record.[facility]
--- OUTSIDE RECORDS SUMMARY | 2025-09-22 08:28 | XMS_ITS | Encounter Summary ---
Author Organization [facility] Address [address] [place] [address] Phone Care Team Providers Care Jewelry Internship Name Role Phone Ani Townsend MD Primary Care Provider Pcp, Not Required Primary Care Provider Unavaila ble Encounter Details Date Type Department Care Team (Late st Contact Info) Description 03/09/2017 Procedure Pass [facility] [place] [facility] [address] [place] [phone] Social History Tobacco Use Types Packs/Day Years [...] on filedocumented in this encounter Care Teams Jewelry Internship Relationship Specialty Start Date End Date Ani Townsend MD [address] [facility] [address] [place] [address] PCP - General 07/13/16 02/18/20 Pcp, Not Required [address] [place] [address] PCP - General 02/19/20 documented as of this encounter Additional Source Comments The information contained in this document represents components of the legal health record. It is not the complete legal health record.[facility]
--- OUTSIDE RECORDS SUMMARY | 2025-09-22 08:28 | XMS_ITS | Encounter Summary ---
Author Organization [facility] Address [address] [place] [address] Phone Care Team Providers Care Regulatory Submissions Associate Name Role Phone Ani Townsend MD Primary Care Provider Pcp, Not Required Primary Care Provider Unavaila ble Reason for Referral * Consultation (Elective) - Closed Specialty Diagnoses / Procedures Referred By Contjose t Referred To Contact [facility] [place] [place] Cardiovascular Medicine [address] [place] [address], 5th Floor, [address] [place] [address] Phone: tel: fax: [facility] CARD [id number] Referral ID Status Reason Start Date Expiration Date Visits Re quested Visits Authorized [id number] Closed 09/09/2019 09/09/2020 1 1 Encounter Details Date Type Department Care Team (Late st Contact Info) Description 09/09/2019 Transcribe Orders [facility] [place] Cardiovascular Medicine [address] [place] [address], 5th Floor, [address] [place] [address] Unknown, Unknown, Social History Tobacco Use Types Packs/Day Years [...] No 03/27/2017 5:47 AM EDT Doug Aleman E PA * Patient has serious difficulty dressing or bathing (5yr old or older) Answer Date of Assessment Author No 03/27/2017 5:47 AM EDDoug Dawson PA * Patient has serious difficulty doing [...] to [facility] Cardiology Outpatient Referral Routine Ordered: 09/09/2019 documented as of this encounter Visit Diagnoses Not on filedocumented in this encounter Care Teams Regulatory Submissions Associate Relationship Specialty Start Date End Date Ani Townsend MD [address] [facility] [address] [place] [address] PCP - General 07/13/16 02/18/20 Pcp, Not Required [address] [place] [address] PCP - General 02/19/20 documented as of this encounter Additional Source Comments The information contained in this document represents components of the legal health record. It is not the complete legal health record.[facility]
--- OUTSIDE RECORDS SUMMARY | 2025-09-22 08:28 | XMS_ITS | Encounter Summary ---
Author Organization [facility] Address [address] [place] [address] Phone Care Team Providers Care Crab Catcher Name Role Phone Ani Townsend MD Primary Care Provider Pcp, Not Required Primary Care Provider Unavaila ble Encounter Details Date Type Department Care Team (Late st Contact Info) Description 02/22/2017 Procedure [place] [facility] [place] [address] [place] [address], 2nd Floor, [address] [place], [place] [id number] Social History Tobacco Use Types Packs/Day Years [...] on filedocumented in this encounter Care Teams Crab Catcher Relationship Specialty Start Date End Date Ani Townsend MD [address] [facility] [address] [place] [address] PCP - General 07/13/16 02/18/20 Pcp, Not Required [address] [place] [address] PCP - General 02/19/20 documented as of this encounter Additional Source Comments The information contained in this document represents components of the legal health record. It is not the complete legal health record.[facility]
--- OUTSIDE RECORDS SUMMARY | 2025-09-22 08:28 | XMS_ITS | Encounter Summary ---
Author Organization [facility] Address [address] [place] [address] Phone Care Team Providers Care Support Services Specialist Name Role Phone Ani Townsend MD Primary Care Provider Pcp, Not Required Primary Care Provider Unavaila ble Encounter Details Date Type Department Care Team (Late st Contact Info) Description 03/10/2017 Procedure Pass [facility] [place] [address] [place] [phone] Social History Tobacco Use Types Packs/Day Years [...] on filedocumented in this encounter Care Teams Support Services Specialist Relationship Specialty Start Date End Date Ani Townsend MD [address] [facility] [address] [place] [address] PCP - General 07/13/16 02/18/20 Pcp, Not Required [address] [place] [address] PCP - General 02/19/20 documented as of this encounter Additional Source Comments The information contained in this document represents components of the legal health record. It is not the complete legal health record.[facility]
--- OUTSIDE RECORDS SUMMARY | 2025-09-22 08:28 | XMS_ITS | Encounter Summary ---
Author Organization [facility] Address [address] [place] [address] Phone Care Team Providers Care Senior Accounts Payable Clerk Name Role Phone Ani Townsend MD Primary Care Provider Pcp, Not Required Primary Care Provider Unavaila ble Encounter Details Date Type Department Care Team (Late st Contact Info) Description 09/06/[address] [facility] Imaging [address] [place] [address] Social History Tobacco Use Types Packs/Day Years [...] on filedocumented in this encounter Care Teams Senior Accounts Payable Clerk Relationship Specialty Start Date End Date Ani Townsend MD [address] [place] [address] PCP - General 07/13/16 02/18/20 Pcp, Not Required [address] [place] [address] PCP - General 02/19/20 documented as of this encounter Additional Source Comments The information contained in this document represents components of the legal health record. It is not the complete legal health record.[facility]
--- OUTSIDE RECORDS SUMMARY | 2025-09-22 08:28 | XMS_ITS | Encounter Summary ---
Author Organization [facility] Address [address] [place] [address] Phone Care Team Providers Care Account Executive Agribusiness Name Role Phone Ani Townsend MD Primary Care Provider Pcp, Not Required Primary Care Provider Unavaila ble Encounter Details Date Type Department Care Team (Late st Contact Info) Description 09/06/2016 Procedure Pass [facility] Imaging [address] [place] [address] Social History Tobacco Use Types Packs/Day Years [...] filedocumented in this encounter Care Teams Account Executive Agribusiness Relationship Specialty Start Date End Date Ani Townsend MD [address] [place] [address] PCP - General 07/13/16 02/18/20 Pcp, Not Required [address] [place] [address] PCP - General 02/19/20 documented as of this encounter Additional Source Comments The information contained in this document represents components of the legal health record. It is not the complete legal health record.[facility]
--- OUTSIDE RECORDS SUMMARY | 2025-09-22 08:28 | XMS_ITS | Encounter Summary ---
Author Organization [facility] Address [address] [place] [address] Phone Care Team Providers Care Charge Coordinator Name Role Phone Ani Townsend MD Primary Care Provider Pcp, Not Required Primary Care Provider Unavaila ble Encounter Details Date Type Department Care Team (Late st Contact Info) Description 09/08/2019 Transcribe Orders [facility] [place] [address] [place] [address], 5th Floor, [address] [place] [address] Unknown, Unknown, Social History Tobacco Use Types [...] on filedocumented in this encounter Care Teams Charge Coordinator Relationship Specialty Start Date End Date Ani Townsend MD [address] [facility] [address] [place] [address] PCP - General 07/13/16 02/18/20 Pcp, Not Required [address] [place] [address] PCP - General 02/19/20 documented as of this encounter Additional Source Comments The information contained in this document represents components of the legal health record. It is not the complete legal health record.[facility]
[2025-09-22 09:24] LABS: Hemoglobin A1C 115.5549 umol/L
[2025-09-22 09:28] LABS: Alanine Aminotransferase 25 U/L (0-31); Anion Gap 10 (12-20); Aspartate Amino Transferase 27 U/L (5-31); Blood Urea Nitrogen 15 mg/dL (9-16); Calcium 9.6 mg/dL (8.4-10.2); Carbon Dioxide 29 mmol/L (22-29); Chloride 105 mmol/L (96-108); Cholesterol 218 mg/dL (<200); Estimated Glomerular Filt Rate > 60; HDL Cholesterol 57 mg/dL (>40); Potassium 4.4 mmol/L (3.3-5.1); Sodium 140 mmol/L (135-145); Triglycerides 102 mg/dL (<150)
== END 2025-09-22 08:15 | disposition home or self-care (01) ==
LOC: HO.LAB 08:14
PROVIDERS: PCP Internal Medicine; Visit Provider Internal Medicine
DX: E11.9 Type 2 diabetes mellitus without complications (principal); I10 Essential (primary) hypertension; E78.5 Hyperlipidemia, unspecified
CPT/HCPCS: 36415; 80048; 80061; 83036; 84450; 84460

== ENCOUNTER 2025-10-05 08:02 | Outpatient (AMB) | payer MEDICARE, BC, SELFPAY ==
--- OUTSIDE RECORDS SUMMARY | 2015-11-16 | XMS_ITS | Encounter Summary ---
Author Organization [facility] Address [address] [place] [address] Phone Care Team Providers Care Securities Compliance Examiner Name Role Phone Unavailable Primary Care Provider Unavailabl e Encounter Details Date Type Department Care Team (Late st Contact Info) Description 11/16/2015 Hospital Encounter [facility] General Imaging [address] [place] [address] Nixon Sesay MD [address] [place] [phone] [email or web address] du Social History Tobacco Use Types Packs/Day Years Used Date Smoking Tobacco: Never Smokeless Tobacco: Never Alcohol Use Standard Drinks/Week Comments No 0 (1 standard drink = 0.6 oz pur e alcohol) Education Answer Date Recorded Are you interested in more education? Not on jeannette e 02/23/2023 Are you concerned about learning? Not on file 02/23/2023 No 02/23/2023 No 02/23/2023 Digital Access Answer Date Recorded No 03/26/2023 No 03/26/2023 Reliable internet access at home? Not on file 03/26/2023 Device with a working camera? Not on file Comments Unknown Sex and Gender Information Value Date Recorded Sex Assigned at Not on file Legal Sex Female 10:07 AM EDT Gender Identity Not on file Sexual Orientation Not on file documented as of this encounter Plan of Treatment Not on file documented as of this encounter Procedures Procedure Name Priority Date/Time Associated Diagnosis Comments XR ABDOMEN OUTSIDE (NO INTERPRETATION) Routine 11/16/2015 12:00 AM EST documented in this encounter Results * XR Abdomen Outside (No Interpretation) (11/16/2015 12:00 AM EST) Narrative [facility] - 09/06/2016 3:47 PM EST This study is for PACS storage only and not for interpretation. us Nixon Sesay MD IMG OUTSIDE IMAGING W/OUT INT ERPRETATION Final Result [facility] documented in this encounter Visit Diagnoses Not on filedocumented in this encounter Additional Source Comments The information contained in this document represents components of the legal health record. It is not the complete legal health record.[facility]
--- OUTSIDE RECORDS SUMMARY | 2015-11-16 00:15 | XMS_ITS | Encounter Summary ---
Author Organization [facility] Address [address] [place] [address] Phone Care Team Providers Care Business Services Sales Representative Name Role Phone Unavailable Primary Care Provider Unavailabl e Encounter Details Date Type Department Care Team (Late st Contact Info) Description 11/16/2015 12:15 AM EST Hospital Encounter [facility] General Imaging [address] [place] [address] Nixon Sesay MD [address] [place] [phone] [email or web address] Social History Tobacco Use Types Packs/Day Years [...] Name Priority Date/Time Associated Diagnosis Comments XR CHEST OUTSIDE (NO INTERPRETATION) Routine 11/16/2015 12:15 AM EST documented in this encounter Results * XR Chest Outside (No Interpretation) (11/16/2015 12:15 AM EST) Narrative [facility]G INTERFACES - 09/06/2016 3:47 PM EST This study is for PACS storage only and not for interpretation. us Nixon Sesay MD IMG OUTSIDE IMAGING W/OUT INT ERPRETATION Final Result [facility]G INTERFACES documented in this encounter Visit Diagnoses Not on filedocumented in this encounter Additional Source Comments The information contained in this document represents components of the legal health record. It is not the complete legal health record.[facility]
--- OUTSIDE RECORDS SUMMARY | 2015-11-17 | XMS_ITS | Encounter Summary ---
Author Organization [facility] Address [address] [place] [address] Phone Care Team Providers Care Database Programmer Analyst Name Role Phone Unavailable Primary Care Provider Unavailabl e Reason for Visit * MRI/CAT Scan - Closed Specialty Diagnoses / Procedures Referred By Jesica t Referred To Contact Procedures CT Abdomen Outside (No Interpretation) Nixon Sesay MD [address] [place] [address] Phone: tel: fax: mailto:[email or web address] Referral ID Status Reason Start Date Expiration Date Visits Re quested Visits Authorized [id number] Closed 09/06/2016 09/06/2017 1 1 Encounter Details Date Type Department Care Team (Late st Contact Info) Description 11/17/2015 Hospital Encounter [facility] General Imaging [address] [place] [address] Nixon Sesay MD [address] [place] [phone] [email or web address] du Social History Tobacco Use Types [...] (No Interpretation) (11/17/2015 12:00 AM EST) Narrative [facility] [place] [facility] [place] - 09/06/2016 3:47 PM EST This study is for PACS storage only and not for interpretation. us Nixon Sesay MD IMG OUTSIDE IMAGING W/OUT INT ERPRETATION Final Result [facility] [place] [facility] [place] documented in this encounter Visit Diagnoses Not on filedocumented in this encounter Additional Source Comments The information contained in this document represents components of the legal health record. It is not the complete legal health record.[facility]
--- OUTSIDE RECORDS SUMMARY | 2015-11-30 | XMS_ITS | Encounter Summary ---
Author Organization [facility] Address [address] [place] [address] Phone Care Team Providers Care Quality Assurance Lab Technician Name Role Phone Unavailable Primary Care Provider Unavailabl e Reason for Visit * MRI/CAT Scan - Closed Specialty Diagnoses / Procedures Referred By Jesica t Referred To Contact Procedures CT Chest Outside (No Interpretation) Nixon Sesay MD [address] [place] [address] Phone: tel: fax: mailto:[email or web address] Referral ID Status Reason Start Date Expiration Date Visits Re quested Visits Authorized [id number] Closed 09/06/2016 09/06/2017 1 1 Encounter Details Date Type Department Care Team (Late st Contact Info) Description 11/30/[address] [facility] Imaging [address] [place] [address] Nixon Sesay MD [address] [place] [phone] [email or web address] du Social History Tobacco Use Types Packs/Day [...] Name Priority Date/Time Associated Diagnosis Comments CT CHEST OUTSIDE (NO INTERPRETATION) Routine 11/30/2015 12:00 AM EST documented in this encounter Results * CT Chest Outside (No Interpretation) (11/30/2015 12:00 AM EST) Narrative [facility] [place] - 09/06/2016 3:44 PM EST This study is for PACS storage only and not for interpretation. us Nixon Sesay MD IMG OUTSIDE IMAGING W/OUT INT ERPRETATION Final Result [facility] documented in this encounter Visit Diagnoses Not on filedocumented in this encounter Additional Source Comments The information contained in this document represents components of the legal health record. It is not the complete legal health record.[facility]
--- OUTSIDE RECORDS SUMMARY | 2025-10-05 08:13 | XMS_ITS | Encounter Summary ---
Author Organization [facility] Address [address] [place] [address] Phone Care Team Providers Care Wire Puller Name Role Phone Ani Townsend MD Primary Care Provider Pcp, Not Required Primary Care Provider Unavaila ble Reason for Referral * Consultation (Elective) - Closed Specialty Diagnoses / Procedures Referred By Jesica t Referred To Contact [facility] Cardiovascular Medicine [address] [place] [address], 5th Floor, [address] [place] [address] Phone: tel: fax: [facility] CARD [id number] Referral ID Status Reason Start Date Expiration Date Visits Re quested Visits Authorized [id number] Closed 09/09/2019 09/09/2020 1 1 Encounter Details Date Type Department Care Team (Late st Contact Info) Description 09/09/2019 Transcribe Orders [facility] Cardiovascular Medicine [address] [place] [address], 5th Floor, [address] [place] [address] Unknown, Unknown, Social History Tobacco Use Types [...] Associated Diagnoses Order Schedule Ambulatory referral to [facility] Cardiology Outpatient Referral Routine Ordered: 09/09/2019 documented as of this encounter Visit Diagnoses Not on filedocumented in this encounter Care Teams Wire Puller Relationship Specialty Start Date End Date Ani Townsend MD [address] [place] [address] PCP - General 07/13/16 02/18/20 Pcp, Not Required [address] [place] [address] PCP - General 02/19/20 documented as of this encounter Additional Source Comments The information contained in this document represents components of the legal health record. It is not the complete legal health record.[facility]
--- OUTSIDE RECORDS SUMMARY | 2025-10-05 08:13 | XMS_ITS | Encounter Summary ---
Author Organization [facility] Address [address] [place] [address] Phone Care Team Providers Care Door To Door Salesman Name Role Phone Ani Townsend MD Primary Care Provider Pcp, Not Required Primary Care Provider Unavaila ble Encounter Details Date Type Department Care Team (Late st Contact Info) Description 09/08/2019 Transcribe Orders [facility] [place] [address] [place] [address], 5th Floor, [address] [place] [address] Unknown, Unknown, Social History Tobacco Use Types [...] on filedocumented in this encounter Care Teams Door To Door Salesman Relationship Specialty Start Date End Date Ani Townsend MD [address] [place] [address] PCP - General 07/13/16 02/18/20 Pcp, Not Required [address] [place] [address] PCP - General 02/19/20 documented as of this encounter Additional Source Comments The information contained in this document represents components of the legal health record. It is not the complete legal health record.[facility]
--- OUTSIDE RECORDS SUMMARY | 2025-10-05 08:13 | XMS_ITS | Encounter Summary ---
Author Organization [facility] Address [facility] [address] [place] [address] Phone Care Team Providers Care Director Of Casino Name Role Phone Ani Townsend MD Primary Care Provider Pcp, Not Required Primary Care Provider Unavaila ble Reason for Referral * Consultation (Within 1 month) - Closed Specialty Diagnoses / Procedures Referred By Contac t Referred To Contact Gastroenterology Diagnoses Dysphagia, unspecified type Achalasia Anne Gay MD Phone: tel: fax: Roddy Edmonds MD Phone: tel: fax: mailto:[email or web address] Referral ID Status Reason Start Date Expiration Date Visits Re quested Visits Authorized [id number] Closed 02/03/2020 02/02/2021 1 1 Encounter Details Date Type Department Care Team (Latest Contact Info) Description 02/03/2020 Transcribe Orders [facility] [address] [place] [address], 5th [place] [address] Ani Townsend MD [address] [place] [address] Dysphagia, unspecified type (Primary Dx); Achalasia Social [...] Associated Diagnoses Order Schedule Ambulatory referral to [facility] Gastroenterology (Consult Requests Only) Outpatient Referral Routine Dysphagia, unspecified type Achalasia Ordered: 02/03/2020 documented as of this encounter Visit Diagnoses Diagnosis Dysphagia, unspecified type- Primary Achalasia Achalasia and cardiospasm documented in this encounter Care Teams Director Of Casino Relationship Specialty Start Date End Date Ani Townsend MD [address] [place] [address] PCP - General 07/13/16 02/18/20 Pcp, Not Required [address] [place] [address] PCP - General 02/19/20 documented as of this encounter Additional Source Comments The information contained in this document represents components of the legal health record. It is not the complete legal health record.[facility]
--- OUTSIDE RECORDS SUMMARY | 2025-10-05 08:13 | XMS_ITS | Encounter Summary ---
Author Organization [facility] Address [address] [place] [address] Phone Care Team Providers Care Lean Engineer Name Role Phone Ani Townsend MD Primary Care Provider Pcp, Not Required Primary Care Provider Unavaila ble Encounter Details Date Type Department Care Team (Late st Contact Info) Description 09/06/2016 Procedure Pass [facility] Imaging [address] [place] [address] Social History Tobacco Use Types Packs/Day Years [...] on filedocumented in this encounter Care Teams Lean Engineer Relationship Specialty Start Date End Date Ani Townsend MD [address] [place] [address] PCP - General 07/13/16 02/18/20 Pcp, Not Required [address] [place] [address] PCP - General 02/19/20 documented as of this encounter Additional Source Comments The information contained in this document represents components of the legal health record. It is not the complete legal health record.[facility]
--- OUTSIDE RECORDS SUMMARY | 2025-10-05 08:13 | XMS_ITS | Encounter Summary ---
Author Organization [facility] Address [address] [place] [address] Phone Care Team Providers Care Flooring Machine Operator Name Role Phone Ani Townsend MD Primary Care Provider Pcp, Not Required Primary Care Provider Unavaila ble Encounter Details Date Type Department Care Team (Late st Contact Info) Description 02/22/2017 Procedure Pass [facility], [address] [facility], 2nd Floor, [address] [place] [address] Social History Tobacco Use Types Packs/Day Years [...] on filedocumented in this encounter Care Teams Flooring Machine Operator Relationship Specialty Start Date End Date Ani Townsend MD [address] [place], [place] [id number] PCP - General 07/13/16 02/18/20 Pcp, Not Required [address] [place] [address] PCP - General 02/19/20 documented as of this encounter Additional Source Comments The information contained in this document represents components of the legal health record. It is not the complete legal health record.[facility]
--- OUTSIDE RECORDS SUMMARY | 2025-10-05 08:13 | XMS_ITS | Encounter Summary ---
Author Organization [facility] Address [address] [place] [address] Phone Care Team Providers Care Foundry Tender Name Role Phone Ani Townsend MD Primary Care Provider Pcp, Not Required Primary Care Provider Unavaila ble Encounter Details Date Type Department Care Team (Late st Contact Info) Description 09/13/2016 Procedure Pass [facility] [place], [address] [facility], 2nd Floor, [address] [place] [address] Social History Tobacco Use Types Packs/Day Years [...] on filedocumented in this encounter Care Teams Foundry Tender Relationship Specialty Start Date End Date Ani Townsend MD [address] [place], [place] [id number] PCP - General 07/13/16 02/18/20 Pcp, Not Required [address] [place] [address] PCP - General 02/19/20 documented as of this encounter Additional Source Comments The information contained in this document represents components of the legal health record. It is not the complete legal health record.[facility]
--- OUTSIDE RECORDS SUMMARY | 2025-10-05 08:13 | XMS_ITS | Encounter Summary ---
Author Organization [facility] Address [address] [place] [address] Phone Care Team Providers Care Tool And Die Maker Level Five Name Role Phone Ani Townsend MD Primary Care Provider Pcp, Not Required Primary Care Provider Unavaila ble Encounter Details Date Type Department Care Team (Late st Contact Info) Description 10/13/2016 Ancillary Orders [facility] Division of Cardiac Surgery [address] [facility], 6th Floor, [address] [place] [address] Nixon Sesay MD [address] [place] [address] [email or web address] Pseudoaneurysm Social History Tobacco Use Types Packs/Day [...] site documented in this encounter Care Teams Tool And Die Maker Level Five Relationship Specialty Start Date End Date Ani Townsend MD [address] [place] [address] PCP - General 07/13/16 02/18/20 Pcp, Not Required [address] [place] [address] PCP - General 02/19/20 documented as of this encounter Additional Source Comments The information contained in this document represents components of the legal health record. It is not the complete legal health record.[facility]
--- OUTSIDE RECORDS SUMMARY | 2025-10-05 08:13 | XMS_ITS | Encounter Summary ---
Author Organization [facility] Address [facility] [address] [place] [address] Phone Care Team Providers Care Sand Mill Operator Core Sand Name Role Phone Ani Townsend MD Primary Care Provider Pcp, Not Required Primary Care Provider Unavaila ble Encounter Details Date Type Department Care Team (Late st Contact Info) Description 03/21/2017 Procedure Pass [facility] PERIOPERATIVE DEPT [address] [place] [phone] Social History Tobacco Use Types Packs/Day Years [...] on filedocumented in this encounter Care Teams Sand Mill Operator Core Sand Relationship Specialty Start Date End Date Ani Townsend MD [address] [place] [address] PCP - General 07/13/16 02/18/20 Pcp, Not Required [address] [place] [address] PCP - General 02/19/20 documented as of this encounter Additional Source Comments The information contained in this document represents components of the legal health record. It is not the complete legal health record.[facility]
--- OUTSIDE RECORDS SUMMARY | 2025-10-05 08:13 | XMS_ITS | Encounter Summary ---
Author Organization [facility] Address Formerly [facility] [address] [place] [address] Phone Care Team Providers Care Ore Sampler Name Role Phone Ani Townsend MD Primary Care Provider Pcp, Not Required Primary Care Provider Unavaila ble Encounter Details Date Type Department Care Team (Late st Contact Info) Description 03/13/2017 Procedure Pass [facility] PERIOPERATIVE DEPT [address] [place] [phone] Social History Tobacco Use Types Packs/Day Years [...] on filedocumented in this encounter Care Teams Ore Sampler Relationship Specialty Start Date End Date Ani Townsend MD [address] [place] [address] PCP - General 07/13/16 02/18/20 Pcp, Not Required [address] [place] [address] PCP - General 02/19/20 documented as of this encounter Additional Source Comments The information contained in this document represents components of the legal health record. It is not the complete legal health record.[facility]
--- OUTSIDE RECORDS SUMMARY | 2025-10-05 08:13 | XMS_ITS | Encounter Summary ---
Author Organization [facility] Address [facility] [address] [place] [address] Phone Care Team Providers Care Public Information Officer Name Role Phone Ani Townsend MD Primary Care Provider Pcp, Not Required Primary Care Provider Unavaila ble Encounter Details Date Type Department Care Team (Late st Contact Info) Description 03/10/2017 Procedure Pass [facility] PERIOPERATIVE DEPT [address] [place] [phone] Social History Tobacco Use Types Packs/Day Years [...] on filedocumented in this encounter Care Teams Public Information Officer Relationship Specialty Start Date End Date Ani Townsend MD [address] [place] [address] PCP - General 07/13/16 02/18/20 Pcp, Not Required [address] [place] [address] PCP - General 02/19/20 documented as of this encounter Additional Source Comments The information contained in this document represents components of the legal health record. It is not the complete legal health record.[facility]
--- OUTSIDE RECORDS SUMMARY | 2025-10-05 08:13 | XMS_ITS | Clinical Summary ---
Author Organization [facility] Address [facility] [address] [address] Phone Care Team Providers Care Ssas Developer Name Role Phone Pcp, Not Required Primary [...] EDT): S/p right carotid-subclavian bypass 03/10 F[facility]. Stable at present; denies discomfort. [...] For surgery today, 2nd case. Atherosclerosis of [place] ronary artery of [place] heart without angina pectoris 02/14/2017 Assessment & [...] this topic Medical Devices Implanted Type Area Report Specialist Device Identifier Shelf Expiration Date Model / Serial / Lot Graft Vascular [id number] Straight Std Wall Non Ringed Woven Straight Antegrade Flow Perfusion Side Branch Vascutek Gelweave - [id number] Implanted:Qty: 1 on 03/21/2017 by Nixon Sesay MD at [facility] SMDA N/A: Aorta [employer] 01/26/2021 [id number] / [id number] / [id number] Prema Roberts Implanted:Qty: 1 on 03/10/2017 by Josemanuel Dow MBBS at [facility] Right: Arterial [employer] 07/28/2019 [id number] / [id number] / [id number] Procedures Procedure Name Priority Date/Time Associated Diagnosis Comments BASIC METABOLIC PANEL (BMP) Routine 03/27/2017 8:27 AM EDT from Last 3 Months or Most Recently Relevant to Health Maintenance Results * (ABNORMAL) Basic metabolic panel (03/27/2017 8:27 AM EDT) SODIUM 141 135 - 145 mmol/L [facility] POTASSIUM 3.8 3.4 - 5.0 mmol/L [facility] CHLORIDE 102 98 - 108 mmol/L [facility] CO2 27 23 - 32 mmol/L [facility] BUN 14 8 - 25 mg/dL [facility] CREATININE 0.60 0.60 - 1.50 mg/dL [facility] GLUCOSE 134(H) 70 - 110 mg/dL [facility] CALCIUM 8.7 8.5 - 10.5 mg/dL [facility] EGFR >60 >60 mL/min/1. 73m2 [facility] Comment:The normal range for eGFR is >60 mL/min/1.73m2. ANION GAP 12 3 - 17 mmol/L [facility] Blood 03/27/2017 8:27 AM EDT 03/27/2017 8:51 AM EDT us Ed[facility] BLOOD BKR ORDERABLES Fi nal Result [facility] [address] [place] [address] from Last 3 Months or Most Recently Relevant to Health Maintenance Insurance MEDICARE PART A & B [employer] [place] [place] OUT [place] STATE P[place] PART A & [place] [id number] [employer]UE [place] [place] OUT OF STATE PPO MEDICARE PART A & B [facility] OUT STATE [employer] PPO MEDICARE PART A & B [employer] [place] OUT OF STATE PPO MEDICARE PART A & B [facility] PPO MEDICARE PART A & B [facility] OUT OF STATE PPO MEDICARE PART A & B [facility] OUT OF STATE PPO MEDICARE PART A & B [facility] PPO MEDICARE PART A & B [facility] OUT OF [facility] PPO Advance Directives For more information, please contact: [phone] (9AM - 5PM [facility], Sunday-Sunday) Documents on File Type Date Recorded Patient Engraver Copperplate Expl anation Healthcare Proxy 03/01/2017 9:40 AM Signed on 02/28/17 * Full Code (Presumed) (Latest Code Status on File) Date Activated Date Inactivated Comments 03/21/2017 6:18 PM 03/28/2017 1:56 PM * Full Code (Presumed) Date Activated Date Inactivated Comments 03/10/2017 2:02 PM 03/13/2017 7:02 PM * Full Code (Presumed) Date Activated Date Inactivated Comments 03/09/2017 5:12 PM 03/10/2017 1:44 PM Care Teams Ssas Developer Relationship Specialty Start Date End Date Pcp, Not Required PCP - General 02/19/20 Additional Source Comments The information contained in this document represents components of the legal health record. It is not the complete legal health record.[facility]
--- OUTSIDE RECORDS SUMMARY | 2025-10-05 08:13 | XMS_ITS | Encounter Summary ---
Author Organization [facility] Address [address] [place] [address] Phone Care Team Providers Care Lighting Adviser Name Role Phone Ani Townsend MD Primary Care Provider Pcp, Not Required Primary Care Provider Unavaila ble Encounter Details Date Type Department Care Team (Late st Contact Info) Description 03/08/2017 Procedure Pass [facility] Cardiac Lamination Inspector [address] [facility], [address], [address] [place] [phone] Social History Tobacco Use Types [...] on filedocumented in this encounter Care Teams Lighting Adviser Relationship Specialty Start Date End Date Ani Townsend MD [address] [place] [address] PCP - General 07/13/16 02/18/20 Pcp, Not Required [address] [place] [address] PCP - General 02/19/20 documented as of this encounter Additional Source Comments The information contained in this document represents components of the legal health record. It is not the complete legal health record.[facility]
--- OUTSIDE RECORDS SUMMARY | 2025-10-05 08:13 | XMS_ITS | Encounter Summary ---
Author Organization [facility] Address [facility] [address] [place] [address] Phone Care Team Providers Care Tissue Rewinder Name Role Phone Ani Townsend MD Primary Care Provider Pcp, Not Required Primary Care Provider Unavaila ble Encounter Details Date Type Department Care Team (Late st Contact Info) Description 03/09/2017 Procedure Pass [facility] PERIOPERATIVE DEPT [address] [place] [phone] Social History Tobacco Use Types Packs/Day Years [...] on filedocumented in this encounter Care Teams Tissue Rewinder Relationship Specialty Start Date End Date Ani Townsend MD [address] [place] [address] PCP - General 07/13/16 02/18/20 Pcp, Not Required [address] [place] [address] PCP - General 02/19/20 documented as of this encounter Additional Source Comments The information contained in this document represents components of the legal health record. It is not the complete legal health record.[facility] [place] [facility]
--- OUTSIDE RECORDS SUMMARY | 2025-10-05 08:13 | XMS_ITS | Encounter Summary ---
Author Organization [facility] Address [facility] [address] [place] [address] Phone Care Team Providers Care Global Risk Management Director Name Role Phone Pcp, Not Required Primary Care Provider Unavaila ble Encounter Details Date Type Department Care Team (Late st Contact Info) Description 06/22/2020 Procedure Pass [facility] [address] [facility], [address]th [place] [address] Social History Tobacco Use Types Packs/Day Years [...] on filedocumented in this encounter Care Teams Global Risk Management Director Relationship Specialty Start Date End Date Pcp, Not Required PCP - General 02/19/20 documented as of this encounter Additional Source Comments The information contained in this document represents components of the legal health record. It is not the complete legal health record.[facility]
--- OUTSIDE RECORDS SUMMARY | 2025-10-05 08:14 | XMS_ITS | Encounter Summary ---
Author Organization [facility] Address [address] [place] [address] Phone Care Team Providers Care Butter Liquefier Name Role Phone Ani Townsend MD Primary Care Provider Pcp, Not Required Primary Care Provider Unavaila ble Encounter Details Date Type Department Care Team (Late st Contact Info) Description 09/06/2016 Procedure Pass [facility] [address] [place] [address] Social History Tobacco Use Types Packs/Day Years [...] on filedocumented in this encounter Care Teams Butter Liquefier Relationship Specialty Start Date End Date Ain Townsend MD [address] [place] [address] PCP - General 07/13/16 02/18/20 Pcp, Not Required [address] [place] [address] PCP - General 02/19/20 documented as of this encounter Additional Source Comments The information contained in this document represents components of the legal health record. It is not the complete legal health record.[facility]
--- OUTSIDE RECORDS SUMMARY | 2025-10-05 08:14 | XMS_ITS | Encounter Summary ---
Author Organization [facility] Address [address] [place] [address] Phone Care Team Providers Care Oxygen Equipment Preparer Name Role Phone Ani Townsend MD Primary Care Provider Pcp, Not Required Primary Care Provider Unavaila ble Encounter Details Date Type Department Care Team (Late st Contact Info) Description 04/24/2018 Procedure Pass [facility] [address] [place] [address] Social History Tobacco Use Types Packs/Day Years [...] on filedocumented in this encounter Care Teams Oxygen Equipment Preparer Relationship Specialty Start Date End Date Ani Townsend MD [address] [place] [address] PCP - General 07/13/16 02/18/20 Pcp, Not Required [address] [place] [address] PCP - General 02/19/20 documented as of this encounter Additional Source Comments The information contained in this document represents components of the legal health record. It is not the complete legal health record.[facility]
[2025-10-05 08:23] VITALS: BP 102/70; PULSE 65; RESP 16; TEMP 36.6; O2SAT 99; BMI 23.3
--- NOTE | 2025-10-05 08:23 | A.OFFPC_ITS ---
Vital Signs 10/05/25 08:23 Height 5 ft 4 in Weight 136 lb BMI 23.3 BP 102/70 Blood Pressure Location Lt brachial Position Sitting Respiration 16 Pulse 65 Pulse Source Pulse Oximeter Temp 97.8 F Temp Source Oral Pulse Oximetry (%) 99 Oxygen Delivery Method Room Air Intake Visit Reasons: 4m Follow up reschedule from 09/17 Intake Note: Pt is here today for her 4mo. f/u Business Segment Manager Required: Yes Allergies amlodipine Allergy (Unknown, Verified 10/05/25 08:49) unk chlorpromazine (From Thorazine) Allergy (Unknown, Verified 10/05/25 08:49) Unknown doxepin Allergy (Unknown, Verified 10/05/25 08:49) unk haloperidol (Haldol) Allergy (Unknown, Verified 10/05/25 08:49) unk prochlorperazine (From Compazine) Allergy (Unknown, Verified 10/05/25 08:49) Unknown simvastatin Allergy (Unknown, Verified 10/05/25 08:49) unk thioridazine Allergy (Unknown, Verified 10/05/25 08:49) unk trifluoperazine Allergy (Unknown, Verified 10/05/25 08:49) Unknown lisinopril Adverse Reaction (Severe, Verified 10/05/25 08:49) cough Medication List - Last Reconciled 10/05/25 by Bessy Arreguin MD ascorbic acid (vitamin C) mg PO aspirin (Adult Aspirin Regimen) 81 mg PO DAILY calcium mg PO [id number] 333-133-8.3 mg tabs PO cane As directed cholecalciferol (vitamin D3) 50 mcg PO DAILY cinnamon bark (Cinnamon) 1,000 mg PO DAILY folic acid 0.4 mg PO DAILY hydrochlorothiazide 12.5 mg PO QAM magnesium oxide 250 mg PO DAILY metoprolol succinate ER 100 mg PO DAILY rosuvastatin 5 mg PO DAILY Shower Chair As directed valsartan 40 mg PO DAILY vitamin E (dl, acetate) 180 mg PO DAILY Tobacco use date assessed: 10/05/25 Fall risk assessment: No Falls in past year Last assessed Fall Risk: 10/05/25 Dental Screening Dental Screen Date: 10/05/25 Did you have a dental visit in the last 12 months?: Yes Did you have a dental problem in the last 6 months where you did not have access to dental care?: No Was dental information given to patient?: Patient has dentist [facility] Medical History Rash and nonspecific skin eruption Nonerosive nonspecific gastritis Dysphagia Overactive bladder Skin tags, multiple acquired Erythema intertrigo Cystocele and rectocele with incomplete uterovaginal prolapse Pelvic organ prolapse quantification stage 2 rectocele Pelvic organ prolapse quantification stage 3 cystocele Urinary incontinence 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 Mother No problems noted. Brother No problems noted. Social History Housing: House Alcohol intake: never Patient Tobacco Use Status: Never used Tobacco e-Cigarette/Vaping Use: Never Used Current occupational status: retired Cognitive needs: No Hearing needs: No Vision needs: No Questionnaire PHQ-9 Over the last 2 weeks, how often have you been bothered by any of the following problems? 1. Little interest or pleasure in doing things: not at all 2. Feeling down, depressed, or hopeless: not at all 3. Trouble falling or staying asleep, or sleeping too much: not at all 4. Feeling tired or having little energy: not at all 5. Poor appetite or overeating: not at all 6. Feeling bad about yourself - or that you are a failure or have let yourself or your family down: not at all 7. Trouble concentrating on things, such as reading the newspaper or watching television: not at all 8. Moving or speaking so slowly that other people could have noticed. Or the opposite - being so fidgety or restless that you have been moving around a lot more than usual: not at all 9. Thoughts that you would be better off or of hurting yourself in some way: not at all Total score: 0 Depression Screening Interpretation: Negative Depression Screening Done: Yes Source: Developed by Drs. Aníbal Singer, April Jackson, Raimundo Johnston and colleagues, with an educational darian from [employer]. Thrive Questionnaire Date Thrive assessed: 04/27/25 I am a: Patient What is your living situation today?: I have a steady place to live Within the past 12 months, did the food you bought not last and you didn't have the money to get more?: Never true Within the past 12 months, did you worry whether your food would run out before you got money to buy more?: Never true Do you have trouble paying for medicines?: No Do you have trouble getting transportation to medical appointments?: Yes Do you have trouble paying your heating and electricity bill?: No Do you have trouble taking care of your child, family member or friend?: No Do you have trouble with day-to-day activities such as bathing, preparing meals, shopping, managing finances, etc.?: No Are you currently unemployed and looking for a job?: No Are you interested in more education?: No Please select the resources that you would like help with: Transportation Currently or been in a relationship where the following occur: No concerns reported THRIVE Score: 1 AUDIT C Alcohol Use Questionnaire (AUDIT-C) 1. How often do you have a drink containing alcohol?: Never 3. How often do you have six or more drinks on one occasion?: Never Total Score: 0 ASHLEY-7 AMB Questionnaire ASHLEY-7 Date ASHLEY - 7 assessed: 12/01/24 Feeling nervous, anxious, or on edge: 0 = Not at all Not being able to stop or control worryin = Not at all Worrying too much about different things: 0 = Not at all Trouble relaxin = Not at all Being so restless that it is hard to sit still: 0 = Not at all Becoming easily annoyed or irritable: 0 = Not at all Feeling afraid as if something awful might happen: 0 = Not at all Total ASHLEY-7 score (0-4 normal; 5-9 mild; 10-14 moderate; 15-21 severe): 0 Source: Developed by Drs. Aníbal Singer, April Jackson, Raimundo Johnston and colleagues, with an educational darian from [employer]. Physical exam (Primary Care) Vital Signs: Last Vital Signs Temp 97.8 F 10/05/25 08:23 Pulse 65 10/05/25 08:23 Resp 16 10/05/25 08:23 BP 102/70 10/05/25 08:23 Pulse Ox 99 10/05/25 08:23 Oxygen Delivery Method Room Air 10/05/25 08:23 BMI result Body Mass Index 23.3 Tobacco/Smoking Status: Tobacco use Status Tobacco use date assessed 10/05/25 10/05/25 08:34 Patient Tobacco Use Status Never used Tobacco 10/05/25 08:24 e-Cigarette/Vaping Use Never Used 10/05/25 08:24 PHQ-9: PHQ-9 Score PHQ-9: Total score 0 10/05/25 08:51 Depression Screening Interpretation: Negative Thrive Assessment: Date of Thrive Assessment Date Thrive assessed 04/27/25 10/05/25 08:24 Currently or been in a relationship where the following occur: No concerns reported Results AMB Urinalysis, Automated UA Leukoctes 0 Sylvester/uL Last Edit by Marta Bryant CMA on 10/05/25 09:13 UA Nitrite Negative Last Edit by Marta Bryant CMA on 10/05/25 09:13 UA Urobilinogen 0.2 mg/dL Last Edit by Marta Bryant CMA on 10/05/25 09:13 UA Protein 0 mg/dL Last Edit by Marta Bryant CMA on 10/05/25 09:13 UA pH 7.0 Last Edit by Marta Bryant CMA on 10/05/25 09:13 UA Blood 0 Bong/uL Last Edit by Marta Bryant CMA on 10/05/25 09:13 UA Specific [place] 1.005 Last Edit by Marta Bryant CMA on 10/05/25 09:13 UA Ketone Negative Last Edit by Marta Bryant CMA on 10/05/25 09:13 UA Bilirubin 0 mg/dL Last Edit by Marta Bryant CMA on 10/05/25 09:13 UA Glucose 0 mg/dL Last Edit by Marta Bryant CMA on 10/05/25 09:13 Results Reviewed Results Reviewed: Name: Maggy Hamilton Age/Sex: 74/F : 1950 Unit#: [id number] Attend Dr: Bessy Arreguin MD Re09/22/25 Status: DEP REF Location: .LAB Disch: SPEC : [id number] NATALIE: 09/22/25 STATUS: COMP REQ : [id number] RECD: 09/22/[address]: Bessy Arreguin MD COMP: 09/22/25 ENTERED: 09/22/25 [facility] DR: ORDERED: Met Prof Fast, AST, ALT, Lipid Panel Test Result Flag Reference Sodium 140 135-145 mmol/L Potassium 4.4 3.3-5.1 mmol/L CL 105 96-108 mmol/L CO2 29 22-29 mmol/L Gap 10 L 12-20 BUN 15 9-16 mg/dL Creat 0.67 0.5-1.4 mg/dL eGFR > 60 Chronic Kidney Disease: Estimated GFR < 60 mL/min/1.73m2 Severe Kidney Disease: Estimated GFR < 15 mL/min/1.73m2 FBS 158 H 60-99 mg/dL A fasting glucose of 126 mg/dl or greater on more than one occasion is considered diagnostic of diabetes. CA 9.6 8.4-10.2 mg/dL AST (GOT) 27 5-31 U/L ALT (GPT) 25 0-31 U/L Triglyceride 102 <150 mg/dL Desirable Triglyceride: less than 150 mg/dL Borderline High Triglyceride 150-199 mg/dL High Triglyceride: 200-499 mg/dL Very High Triglyceride: greater than or equal to 5OO mg/dL Cholesterol 218 H <200 mg/dL Desirable Cholesterol: less than 200 mg/dL Borderline High Cholesterol: 200-239 mg/dL High Cholesterol: greater than 239 mg/dL LDL Calculated 141 H <100 mg/dL Desirable LDL: less than 100 mg/dL Near Optimal/Above Optimal LDL: 110-129 mg/dL Borderline High LDL: 130-159 mg/dL High LDL: 160-189 mg/dL Very High LDL: greater than or equal to 190 mg/dL HDL 57 >40 mg/dL Desirable HDL: greater than 40 mg/dL Note: This HDL assay may give artificially Laboratory Tests 09/22/25 08:32 Estimat Average Glucose 140 Hemoglobin A1c % 6.5 H Coding Level of Care Code Est Pt Level 4 (69798) Diagnoses Lower abdominal pain R10.30 Dyslipidemia E78.5 Type 2 diabetes mellitus without complication, without long-term current use of insulin E11.9 Essential hypertension I10 Constipation K59.00 Assessment & Plan Assessment & Plan (1) Lower abdominal pain: Code(s): R10.30 - Lower abdominal pain, unspecified (2) Dyslipidemia: Code(s): E78.5 - Hyperlipidemia, unspecified Category: Medical (3) Type 2 diabetes mellitus without complication, without long-term current use of insulin: Code(s): E11.9 - Type 2 diabetes mellitus without complications Category: Medical (4) Essential hypertension: Code(s): I10 - Essential (primary) hypertension Category: Medical (5) Constipation: Code(s): K59.00 - Constipation, unspecified Orders: Orders Alanine Aminotransferase 3 Months E11.9 - Type 2 diabetes mellitus without complications, E78.5 - Hyperlipidemia, unspecified, I10 - Essential (primary) hypertension, K59.00 - Constipation, unspecified Aspartate Amino Transferase 3 Months E11.9 - Type 2 diabetes mellitus without complications, E78.5 - Hyperlipidemia, unspecified, I10 - Essential (primary) hypertension, K59.00 - Constipation, unspecified Hemoglobin A1c 3 Months E11.9 - Type 2 diabetes mellitus without complications, E78.5 - Hyperlipidemia, unspecified, I10 - Essential (primary) hypertension, K59.00 - Constipation, unspecified Vitamin D 25-OH Total 3 Months E11.9 - Type 2 diabetes mellitus without complications, E78.5 - Hyperlipidemia, unspecified, I10 - Essential (primary) hypertension, K59.00 - Constipation, unspecified UA CC w/rflx Micro + Cult Today R10.30 - Lower abdominal pain, unspecified AMB Urinalysis Automated Today Z13.9 - Encounter for screening, unspecified Lipid Panel 3 Months E11.9 - Type 2 diabetes mellitus without complications, E78.5 - Hyperlipidemia, unspecified, I10 - Essential (primary) hypertension, K59.00 - Constipation, unspecified Basic Metabolic Panel Fasting 3 Months E11.9 - Type 2 diabetes mellitus without complications, E78.5 - Hyperlipidemia, unspecified, I10 - Essential (primary) hypertension, K59.00 - Constipation, unspecified Microalbumin, Random (w Creat) 3 Months E11.9 - Type 2 diabetes mellitus without complications, E78.5 - Hyperlipidemia, unspecified, I10 - Essential (primary) hypertension, K59.00 - Constipation, unspecified
== END 2025-10-05 09:19 | disposition home or self-care (01) ==
LOC: HO.HMCC 08:03
PROVIDERS: PCP Internal Medicine; Visit Provider Internal Medicine
DX: Z13.9 Encounter for screening, unspecified (principal)

== ENCOUNTER 2025-10-05 08:02 | Outpatient (REF) | payer MEDICARE, BC, SELFPAY | END 2025-10-05 08:03 | disposition home or self-care (01) | LOC: HO.LAB 08:02 | PROVIDERS: PCP Internal Medicine; Visit Provider Internal Medicine | DX: I10 Essential (primary) hypertension (principal); R10.30 Lower abdominal pain, unspecified; E78.5 Hyperlipidemia, unspecified; E11.9 Type 2 diabetes mellitus without complications | CPT/HCPCS: 81003; 96127; 99212 ==